=== PATIENT | male | born 1950 | race Caucasian/White ===

== ENCOUNTER 2018-12-17 15:26 | Inpatient (IN) | payer MEDICARE, OTHER ==
[~2018-12-17] VITALS: Ht 162.6 cm; Wt 64.9 kg
[~2018-12-17 15:26] MED LIST: AMLO5TAB10 PO; ASPI-630 PO; ATOR40TA PO; CARV12.5 PO; CITA20TA9 PO; DONE5TAB56 PO; FENO160T PO; HYDR-2761 PO; INSU100I13 SQ; INSU100I17 SQ; PROP80CA3 PO; TAMS0.4C97 PO
[2018-12-17] MEDS ORDERED: VANCOMYCIN PER PHARMACY MC PRN (15:45)
[2018-12-17] MEDS ORDERED: MORPHINE SULFATE 10 MG/ML VIAL. IV ONE (15:45)
[2018-12-17] MEDS ORDERED: VANCOMYCIN 1.5 GM in IV NORMAL SALINE 500ML BAG 500 ML IV ONE (16:00)
[2018-12-17 16:16] LABS: BASO % 1 % (0-3); EOS # 0.3 x10^3/uL (0.0-0.7); EOS % 5 % (0-3); HEMATOCRIT 29.2 % (39.0-53.0); HEMOGLOBIN 9.4 g/dL (13.0-17.5); LYMPH # 0.9 x10^3/uL (1.0-4.8); LYMPH % 15 % (24-48); MEAN CORPUSCULAR HEMOGLOBIN 28 pg (25-35); MEAN CORPUSCULAR HGB CONC 32 g/dL (31-37); MEAN CORPUSCULAR VOLUME 87 fL (79-100); MONO # 0.4 x10^3/uL (0.0-1.1); MONO % 8 % (0-9); NEUT # 4.3 x10^3uL (1.8-7.7); NEUT % 73 % (31-73); PLATELET COUNT 128 x10^3/uL (140-400); RED BLOOD COUNT 3.35 x10^6/uL (4.30-5.70); RED CELL DISTRIBUTION WIDTH 16.4 % (11.5-14.5); WHITE BLOOD COUNT 5.9 x10^3/uL (4.0-11.0)
[2018-12-17 16:21] LABS: CALCIUM 8.7 mg/dL (8.5-10.1); CREATININE 1.6 mg/dL (0.7-1.3); GFR 42.9; POTASSIUM 5.3 mmol/L (3.5-5.1)
[2018-12-17 16:27] LABS: TOTAL BILIRUBIN 0.2 mg/dL (0.2-1.0)
[2018-12-17] MEDS ORDERED: SODIUM POLYSTYRENE SULFONATE 15 GM/60 ML ORAL.SUSP. PO ONE (16:45)
[2018-12-17] MEDS ORDERED: IV NORMAL SALINE 1000ML BAG 1,000 ML IV ONE ×2 (16:45→17:15)
--- NOTE | 2018-12-17 17:05 | PHYS DOC ---
Past Medical History Past Medical History: CAD, COPD, Diabetes-Type II, GERD, Hypertension, Other Additional Past Medical Histor: ALZHEIMER, PARKINSON, CARPAL TUNNEL, OSTERMYLITIS, KIDNEY DISEASE, HIATAL Past Surgical History: Cholecystectomy, Coronary Bypass Surgery, Other Additional Past Surgical Histo: (L) AKA, BACK TUMOR, CARPAL TUNNEL RELEASE Alcohol Use: None Drug Use: None Adult General Chief Complaint Chief Complaint: CELLULITIS HPI HPI Patient is a 68 year old male who presents with cellulitis to his right lower extremity. He states that it has been worsening over the past 2 weeks. He resides at a half-way currently and states that physical therapy is the one that noticed it. He was seen by his physician at the [facility] today who sent him to the emergency department. He does have a for past history of a left leg amputation. He does have a history of congestive heart failure and renal insufficiency. He is diabetic. He has not taken any antibiotic therapy for this cellulitis. Review of Systems Review of Systems Constitutional: Denies fever or chills [] Respiratory: Denies cough or shortness of breath [] Cardiovascular: No additional information not addressed in HPI [] Musculoskeletal: Denies back pain or joint pain [] Integument: See history of present illness Neurologic: Denies headache, focal weakness or sensory changes [] Endocrine: Denies polyuria or polydipsia [] All other systems were reviewed and found to be within normal limits, except as documented in this note. Current Medications Current Medications Current Medications Medications (Trade) Dose Ordered Sig/Katya Start Time Stop Time Status Last Admin Dose Admin Morphine Sulfate (Morphine Sulfate) 5 mg 1X ONCE 12/17/18 15:45 12/17/18 15:46 DC 12/17/18 16:02 5 MG Sodium Polystyrene Sulfonate (Kayexalate) 15 gm 1X ONCE 12/17/18 16:45 12/17/18 16:46 DC 12/17/18 16:45 15 GM Sodium Chloride 1,000 ml @ 1,000 mls/hr 1X ONCE 12/17/18 16:45 12/17/18 17:44 12/17/18 16:50 1,000 MLS/HR Vancomycin HCl (Vanco Per Pharmacy) 1 each PRN DAILY PRN 12/17/18 15:45 UNV Vancomycin HCl 1.5 gm/Sodium Chloride 500 ml @ 250 mls/hr 1X ONCE 12/17/18 16:00 12/17/18 17:59 12/17/18 16:07 250 MLS/HR Allergies Allergies Allergies Coded Allergies Type Severity Reaction Last Updated Verified atropine Allergy Intermediate 01/09/15 Yes hyoscyamine Allergy Intermediate 01/09/15 Yes lidocaine Allergy Intermediate 01/09/15 No phenobarbital Allergy Intermediate 03/29/14 No scopolamine Allergy Intermediate Unknown 01/09/15 No Physical Exam Physical Exam Constitutional: Well developed, well nourished, no acute distress, non-toxic appearance. [] Cardiovascular:Heart rate regular rhythm, no murmur [] Lungs & Thorax: Bilateral breath sounds clear to auscultation [] Abdomen: Bowel sounds normal, soft, no tenderness, no masses, no pulsatile masses. [] Skin: The patient has a 14 cm x 9 cm area of cellulitis with some blistering and weeping noted to his right anterior lower extremity, no purulent drainage noted Back: No tenderness, no CVA tenderness. [] Neurologic: Alert and oriented X 3, normal motor function, normal sensory function, no focal deficits noted. [] Psychologic: Affect normal, judgement normal, mood normal. [] Current Patient Data Vital Signs Vital Signs Date Time Temp Pulse Resp B/P (MAP) Pulse Ox O2 Delivery O2 Flow Rate FiO2 12/17/18 15:39 98.6 79 16 173/79 (110) 98 Room Air 98.6 Lab Values Laboratory Tests Test 12/17/18 15:50 White Blood Count 5.9 x10^3/uL (4.0-11.0) Red Blood Count 3.35 x10^6/uL (4.30-5.70) L Hemoglobin 9.4 g/dL (13.0-17.5) L Hematocrit 29.2 % (39.0-53.0) L Mean Corpuscular Volume 87 fL (79-100) Mean Corpuscular Hemoglobin 28 pg (25-35) Mean Corpuscular Hemoglobin Concent 32 g/dL (31-37) Red Cell Distribution Width 16.4 % (11.5-14.5) H Platelet Count 128 x10^3/uL (140-400) L Neutrophils (%) (Auto) 73 % (31-73) Lymphocytes (%) (Auto) 15 % (24-48) L Monocytes (%) (Auto) 8 % (0-9) Eosinophils (%) (Auto) 5 % (0-3) H Basophils (%) (Auto) 1 % (0-3) Neutrophils # (Auto) 4.3 x10^3uL (1.8-7.7) Lymphocytes # (Auto) 0.9 x10^3/uL (1.0-4.8) L Monocytes # (Auto) 0.4 x10^3/uL (0.0-1.1) Eosinophils # (Auto) 0.3 x10^3/uL (0.0-0.7) Basophils # (Auto) 0.0 x10^3/uL (0.0-0.2) Sodium Level 145 mmol/L (136-145) Potassium Level 5.3 mmol/L (3.5-5.1) H Chloride Level 107 mmol/L (98-107) Carbon Dioxide Level 24 mmol/L (21-32) Anion Gap 14 (6-14) Blood Urea Nitrogen 26 mg/dL (8-26) Creatinine 1.6 mg/dL (0.7-1.3) H Estimated GFR (Cockcroft-Gault) 42.9 BUN/Creatinine Ratio 16 (6-20) Glucose Level 344 mg/dL (70-99) H Lactic Acid Level 5.1 mmol/L (0.4-2.0) *H Calcium Level 8.7 mg/dL (8.5-10.1) Total Bilirubin 0.2 mg/dL (0.2-1.0) Aspartate Amino Transferase (AST) 16 U/L (15-37) Alanine Aminotransferase (ALT) 11 U/L (16-63) L Alkaline Phosphatase 98 U/L (46-116) UK-Wce-A-Type Natriuretic Peptide 593 pg/mL (0-124) H Total Protein 6.0 g/dL (6.4-8.2) L Albumin 3.0 g/dL (3.4-5.0) L Albumin/Globulin Ratio 1.0 (1.0-1.7) Laboratory Tests 12/17/18 15:50 Laboratory Tests 12/17/18 15:50 EKG EKG [] Radiology/Procedures Radiology/Procedures [] Course & Med Decision Making Course & Med Decision Making Pertinent Labs and Imaging studies reviewed. (See chart for details) []The patient's lactic acid is elevated at 5.1. He is receiving a fluid bolus in the emergency department. His potassium is elevated at 5.3. He is received Kayexalate. His EKG did not show peaked T waves. He is beginning Ancef to treat his cellulitis. He is being admitted to Dr. Ramirez's service. He is in agreement with this plan. He received morphine in the emergency department as well to control his pain. Dragon Disclaimer Dragon Disclaimer This electronic medical record was generated, in whole or in part, using a voice recognition dictation system. Departure Departure Impression: Primary Impression: Cellulitis Additional Impressions: Hyperkalemia Diabetes Disposition: ADMITTED INPATIENT Admitting Physician: Jo-Ann Ramirez Condition: GOOD Referrals: ISAK RICE MD (PCP) Problem Qualifiers LESLEY WOODWARD APRN Dec 17, 2018 17:05
[2018-12-17] MEDS ORDERED: ACETAMINOPHEN 325 MG TABLET. PO PRN (17:15)
[2018-12-17] MEDS ORDERED: DEXTROSE 50% 25 GM / 50ML DISP.SYRIN. IV PRN ×2 (17:15→17:45)
[2018-12-17] MEDS ORDERED: ONDANSETRON PF 4 MG/2 ML VIAL. IV PRN (17:15)
[2018-12-17] MEDS ORDERED: INSULIN REGULAR 100 UNIT/ML 3ML VIAL. IV ONE (17:15)
[2018-12-17] MEDS ORDERED: fentaNYL PF VIAL 100 MCG/2 ML VIAL IV PRN (17:15)
--- NOTE | 2018-12-17 17:31 | RAD ---
Examination: TIBIA FIBULA RIGHT History: CELLULITIS Comparison/Correlation: None Findings: Frontal and lateral views of the right tibia and fibula were obtained. No fracture or bony destruction. Vascular calcifications noted. Extensive nonspecific punctate calcifications throughout the soft tissues evident. Impression: No acute process. Electronically signed by: Piter Jovel MD (12/17/2018 5:28 PM) [facility]
--- NOTE | 2018-12-17 17:40 | PDOC1 ---
History and Physical Date of Admission Date of Admission DATE: 12/17/18 TIME: 17:36 Source Source: Chart review, Patient History of Present Illness History of Present Illness Mr Chapman is a 68 year old male admti in ER with cellulitis to his right lower extremity. he complains of pain and redness for more than a few days, maybe a week. He reports that PT noticed it- [facility], and he saw a midlevel provider today who sent him to the ER> . He does have a for past history of a left leg amputation 50 year ago. Past Medical History Cardiovascular: CAD, HTN Pulmonary: COPD CENTRAL NERVOUS SYSTEM: Dementia, Other Heme/Onc: Other Endocrine: Diabetes Past Surgical History Past Surgical History: Cholecystectomy, CABG (25 years ago), Other, No pertinent history (left femur amputation 50 years ago) Family History Family History: Diabetes, Heart Disease Social History Smoke: No ALCOHOL: none Drugs: None Current Problem List Problem List Problems Medical Problems: (1) Cellulitis Status: Acute (2) Diabetes Status: Acute (3) Hyperkalemia Status: Acute Current Medications Current Medications Current Medications Morphine Sulfate (Morphine Sulfate) 5 mg 1X ONCE IV Last administered on at 16:02; Start 12/17/18 at 15:45; Stop 12/17/18 at 15:46; Status DC Vancomycin HCl (Vanco Per Pharmacy) 1 each PRN DAILY PRN MC SEE COMMENTS; Start 12/17/18 at 15:45; Status UNV Vancomycin HCl 1.5 gm/Sodium Chloride 500 ml @ 250 mls/hr 1X ONCE IV Last administered on 12/17/18at 16:07; Start 12/17/18 at 16:00; Stop 12/17/18 at 17:59 Sodium Polystyrene Sulfonate (Kayexalate) 15 gm 1X ONCE PO Last administered on 12/17/18at 16:45; Start 12/17/18 at 16:45; Stop 12/17/18 at 16:46; Status DC Sodium Chloride 1,000 ml @ 1,000 mls/hr 1X ONCE IV Last administered on at 16:50; Start 12/17/18 at 16:45; Stop 12/17/18 at 17:44 Ondansetron HCl (Zofran) 4 mg PRN Q8HRS PRN IV NAUSEA/VOMITING; Start 12/17/18 at 17:15; Stop 12/18/18 at 17:14 Fentanyl Citrate (Fentanyl 2ml Vial) 50 mcg PRN Q1HR PRN IV PAIN; Start at 17:15; Stop 12/18/18 at 17:14 Sodium Chloride 1,000 ml @ 100 mls/hr Q10H IV ; Start 12/17/18 at 17:05; Stop 12/18/18 at 17:04 Acetaminophen (Tylenol) 650 mg PRN Q4HRS PRN PO FEVER; Start 12/17/18 at 17:15 ; Stop 12/18/18 at 17:14 Insulin Human Lispro (HumaLOG) 0-5 UNITS TIDWMEALS SQ ; Start 12/18/18 at 08:00 Dextrose (Dextrose 50%-Water Syringe) 12.5 gm PRN Q15MIN PRN IV SEE COMMENTS; Start 12/17/18 at 17:15 Insulin Human Regular (HumuLIN R VIAL) 10 unit 1X ONCE IV ; Start 12/17/18 at 17:15; Stop 12/17/18 at 17:16; Status DC Sodium Chloride 1,000 ml @ 1,000 mls/hr 1X ONCE IV ; Start 12/17/18 at 17:15; Stop 12/17/18 at 18:14 Active Scripts Active Reported Hydrocodone-Apap 5-325 (Hydrocodone Bit/Acetaminophen) 1 Each Tablet 1 Tab PO PRN Q6HRS PRN Amlodipine Besylate 5 Mg Tablet 5 Mg PO BID Propranolol Hcl 80 Mg Cap.sa.24h 80 Mg PO DAILY Aricept (Donepezil Hcl) 5 Mg Tablet 5 Mg PO BID Aspirin 81 Mg Tab.chew 81 Mg PO BID Lipitor (Atorvastatin Calcium) 40 Mg Tablet 40 Mg PO HS Coreg (Carvedilol) 12.5 Mg Tablet 12.5 Mg PO DAILY Novolog Flexpen (Insulin Aspart) 100 Unit/1 Ml Insuln.pen 100 Unit SQ Lantus Solostar (Insulin Glargine,Hum.rec.anlog) 100 Unit/1 Ml Insuln.pen 20 Unit SQ HS Flomax (Tamsulosin Hcl) 0.4 Mg Cap.er.24h 0.4 Mg PO DAILY Celexa (Citalopram Hydrobromide) 20 Mg Tablet 20 Mg PO DAILY Fenofibrate 160 Mg Tablet 160 Mg PO DAILY Allergies Allergies: Coded Allergies: atropine (Verified Allergy, Intermediate, 01/09/15) passed out hyoscyamine (Verified Allergy, Intermediate, 01/09/15) passed out lidocaine (Unverified Allergy, Intermediate, 01/09/15) passed out phenobarbital (Unverified Allergy, Intermediate, 03/29/14) scopolamine (Unverified Allergy, Intermediate, Unknown, 01/09/15) ROS General: YES: Chills, Fatigue, Malaise PSYCHOLOGICAL ROS: No: Anxiety, Behavioral Disorder, Concentration difficultie , Decreased libido, Depression, Disorientation, Hallucinations, Hostility, Irritablity, Memory difficulties, Mood Swings, Obsessive thoughts, Physical abuse, Sexual abuse, Sleep disturbances, Suicidal ideation, Other Eyes: No Blurry vision, No Decreased vision, No Double vision, No Dry eyes, No Excessive tearing, No Eye Pain, No Itchy Eyes, No Loss of vision, No Photophobia , No Scotomata, No Uses contacts, No Uses glasses, No Other Respiratory: No: Cough, Hemoptysis, Orthopnea, Pleuritic Pain, Shortness of breath, SOB with excertion, Sputum Changes, Stridor, Tachypnea, Wheezing, Other Cardiovascular: No Chest Pain, No Palpitations, No Orthopnea, No Paroxysmal Noc. Dyspnea, No Edema, No Lt Headedness, No Other Gastrointestinal: Yes Nausea Genitourinary: No Dysuria, No Frequency, No Incontinence, No Hematuria, No Retention, No Discharge, No Urgency, No Pain, No Flank Pain, No Other, No , No , No , No , No , No , No Musculoskeletal: Yes Joint Pain Neurological: No Behavorial Changes, No Bowel/Bladder ControlChng, No Confusion , No Dizziness, No Gait Disturbance, No Headaches, No Impaired Coord/balance, No Memory Loss, No Numbness/Tingling, No Seizures, No Speech Problems, No Tremors, No Visual Changes, No Weakness, No Other Skin: Yes Dry Skin, Yes Rash, Yes Skin Lesion Changes, Yes Other Physical Exam General: Alert, Oriented X3, Cooperative, mild distress HEENT: Atraumatic, PERRLA Lungs: Clear to auscultation Heart: no gallops, no murmurs Abdomen: Normal bowel sounds, Soft Rectal Exam: not examined Extremities: No clubbing, No edema Skin: Other (marked red beefy rash with 2 small bullae to right rosales) Neuro: Normal speech, Normal tone, Cranial nerves 3-12 NL Vitals Vitals Vital Signs Date Time Temp Pulse Resp B/P (MAP) Pulse Ox O2 Delivery O2 Flow Rate FiO2 12/17/18 15:39 98.6 79 16 173/79 (110) 98 Room Air 98.6 Labs Labs Laboratory Tests Test 12/17/18 15:50 White Blood Count 5.9 x10^3/uL (4.0-11.0) Red Blood Count 3.35 x10^6/uL (4.30-5.70) Hemoglobin 9.4 g/dL (13.0-17.5) Hematocrit 29.2 % (39.0-53.0) Mean Corpuscular Volume 87 fL (79-100) Mean Corpuscular Hemoglobin 28 pg (25-35) Mean Corpuscular Hemoglobin Concent 32 g/dL (31-37) Red Cell Distribution Width 16.4 % (11.5-14.5) Platelet Count 128 x10^3/uL (140-400) Neutrophils (%) (Auto) 73 % (31-73) Lymphocytes (%) (Auto) 15 % (24-48) Monocytes (%) (Auto) 8 % (0-9) Eosinophils (%) (Auto) 5 % (0-3) Basophils (%) (Auto) 1 % (0-3) Neutrophils # (Auto) 4.3 x10^3uL (1.8-7.7) Lymphocytes # (Auto) 0.9 x10^3/uL (1.0-4.8) Monocytes # (Auto) 0.4 x10^3/uL (0.0-1.1) Eosinophils # (Auto) 0.3 x10^3/uL (0.0-0.7) Basophils # (Auto) 0.0 x10^3/uL (0.0-0.2) Sodium Level 145 mmol/L (136-145) Potassium Level 5.3 mmol/L (3.5-5.1) Chloride Level 107 mmol/L (98-107) Carbon Dioxide Level 24 mmol/L (21-32) Anion Gap 14 (6-14) Blood Urea Nitrogen 26 mg/dL (8-26) Creatinine 1.6 mg/dL (0.7-1.3) Estimated GFR (Cockcroft-Gault) 42.9 BUN/Creatinine Ratio 16 (6-20) Glucose Level 344 mg/dL (70-99) Lactic Acid Level 5.1 mmol/L (0.4-2.0) Calcium Level 8.7 mg/dL (8.5-10.1) Total Bilirubin 0.2 mg/dL (0.2-1.0) Aspartate Amino Transf (AST/SGOT) 16 U/L (15-37) Alanine Aminotransferase (ALT/SGPT) 11 U/L (16-63) Alkaline Phosphatase 98 U/L (46-116) AC-Cao-S-Type Natriuretic Peptide 593 pg/mL (0-124) Total Protein 6.0 g/dL (6.4-8.2) Albumin 3.0 g/dL (3.4-5.0) Albumin/Globulin Ratio 1.0 (1.0-1.7) Laboratory Tests Test 12/17/18 15:50 White Blood Count 5.9 x10^3/uL (4.0-11.0) Red Blood Count 3.35 x10^6/uL (4.30-5.70) Hemoglobin 9.4 g/dL (13.0-17.5) Hematocrit 29.2 % (39.0-53.0) Mean Corpuscular Volume 87 fL (79-100) Mean Corpuscular Hemoglobin 28 pg (25-35) Mean Corpuscular Hemoglobin Concent 32 g/dL (31-37) Red Cell Distribution Width 16.4 % (11.5-14.5) Platelet Count 128 x10^3/uL (140-400) Neutrophils (%) (Auto) 73 % (31-73) Lymphocytes (%) (Auto) 15 % (24-48) Monocytes (%) (Auto) 8 % (0-9) Eosinophils (%) (Auto) 5 % (0-3) Basophils (%) (Auto) 1 % (0-3) Neutrophils # (Auto) 4.3 x10^3uL (1.8-7.7) Lymphocytes # (Auto) 0.9 x10^3/uL (1.0-4.8) Monocytes # (Auto) 0.4 x10^3/uL (0.0-1.1) Eosinophils # (Auto) 0.3 x10^3/uL (0.0-0.7) Basophils # (Auto) 0.0 x10^3/uL (0.0-0.2) Sodium Level 145 mmol/L (136-145) Potassium Level 5.3 mmol/L (3.5-5.1) Chloride Level 107 mmol/L (98-107) Carbon Dioxide Level 24 mmol/L (21-32) Anion Gap 14 (6-14) Blood Urea Nitrogen 26 mg/dL (8-26) Creatinine 1.6 mg/dL (0.7-1.3) Estimated GFR (Cockcroft-Gault) 42.9 BUN/Creatinine Ratio 16 (6-20) Glucose Level 344 mg/dL (70-99) Lactic Acid Level 5.1 mmol/L (0.4-2.0) Calcium Level 8.7 mg/dL (8.5-10.1) Total Bilirubin 0.2 mg/dL (0.2-1.0) Aspartate Amino Transf (AST/SGOT) 16 U/L (15-37) Alanine Aminotransferase (ALT/SGPT) 11 U/L (16-63) Alkaline Phosphatase 98 U/L (46-116) LS-Jck-Z-Type Natriuretic Peptide 593 pg/mL (0-124) Total Protein 6.0 g/dL (6.4-8.2) Albumin 3.0 g/dL (3.4-5.0) Albumin/Globulin Ratio 1.0 (1.0-1.7) VTE Prophylaxis Ordered VTE Prophylaxis Devices: No VTE Pharmacological Prophylaxi: Yes Assessment/Plan Assessment/Plan sepsis cellulitis hyeprkalemia anemia of CKD 3 weakness and debility early dementia admit DEE STOKES MD Dec 17, 2018 17:40
[2018-12-17] MEDS ORDERED: HYDROcodone/APAP 5/325MG 1 TAB TABLET PO PRN (17:45)
[2018-12-17 19:05] VITALS: BP 149/63
--- NOTE | 2018-12-17 19:15 | NUR ---
Pharmacy Vancomycin Dosing Note S:Consulted to monitor and dose vancomycin started 12/17/18. O:DAMON ANGUIANO is a 68 year old M with Cellulitis . Height: 5 feet, 4 inches Weight: 64.099428 kg [place] Body Weight: 59.20 Adjusted Body Weight: 61.28 Dosing Weight: Actual Other Antibiotics: LABS: Last BUN: 26 Last Creatinine: 1.6 Creatinine Clearance: 36 mL/min Last WBC: 5.9 Last Procalcitonin: Tmax (past 24 hours): 98.8 Microbiology: I/O: Drug Levels: Last level: on at Last dose given 12/17/18 at 1607 Vancomycin Dosing: Loading Dose: 1500 mg x1 Dosing Weight: Actual Target Trough: 10-20 A: Based on weight and est. CrCl: P: 1. Vancomycin 1500mg, followed by Vancomycin 1000 mg IV q24h. 2. Follow up Trough level on 12/19/18 at 1530. 3. Pharmacy will continue to monitor, follow and adjust therapy as needed. Emory Mayberry [facility], 12/17/18 [id number]
[2018-12-17] MEDS: DONEPEZIL HCL 5 MG TABLET. PO SCH (22:26)
[2018-12-17] MEDS: amLODIPine BESYLATE 5 MG TABLET PO SCH (22:26)
[2018-12-17] MEDS: ATORVASTATIN CALCIUM 40 MG TABLET. PO SCH (22:27)
[2018-12-17] MEDS: ASPIRIN CHEWABLE 81 MG TABLET. PO SCH (22:27)
[2018-12-17] MEDS: ENOXAPARIN 40 MG/0.4 ML SYRINGE. SQ SCH (22:27)
[2018-12-17] MEDS: IV NORMAL SALINE 1000ML BAG 1,000 ML IV SCH (22:28)
[2018-12-17] MEDS: INSULIN GLARGINE 300 UNITS/3 ML INSULN.PEN. SQ SCH (22:38)
[2018-12-17 23:10] VITALS: BP 146/55
[2018-12-18 03:10] VITALS: BP 166/68
[2018-12-18 04:43] LABS: BASO % 0 % (0-3); EOS # 0.3 x10^3/uL (0.0-0.7); EOS % 7 % (0-3); HEMATOCRIT 29.4 % (39.0-53.0); HEMOGLOBIN 9.5 g/dL (13.0-17.5); LYMPH # 0.6 x10^3/uL (1.0-4.8); LYMPH % 12 % (24-48); MEAN CORPUSCULAR HEMOGLOBIN 28 pg (25-35); MEAN CORPUSCULAR HGB CONC 32 g/dL (31-37); MEAN CORPUSCULAR VOLUME 87 fL (79-100); MONO # 0.3 x10^3/uL (0.0-1.1); MONO % 7 % (0-9); NEUT # 3.4 x10^3uL (1.8-7.7); NEUT % 74 % (31-73); PLATELET COUNT 106 x10^3/uL (140-400); RED BLOOD COUNT 3.39 x10^6/uL (4.30-5.70); RED CELL DISTRIBUTION WIDTH 16.7 % (11.5-14.5); WHITE BLOOD COUNT 4.7 x10^3/uL (4.0-11.0)
[2018-12-18 05:46] LABS: CALCIUM 8.4 mg/dL (8.5-10.1); CREATININE 1.3 mg/dL (0.7-1.3); GFR 54.6; POTASSIUM 4.5 mmol/L (3.5-5.1)
[2018-12-18 07:00] VITALS: BP 166/60
--- NOTE | 2018-12-18 07:52 | EKG ---
[facility] [address] [place] [address] Test Date: 2018-12-17 Test Time: 16:53:54 Pat Name: DAMON ANGUIANO Department: Room: 652 1 Gender: M Psychology Fellow: : 1950 Requested By: LESLEY WOODWARD Order Number: [id number] Reading MD: Victor Hugo Watt Measurements Intervals [place] Rate: 77 P: 47 VT: 204 QRS: 31 QRSD: 126 T: 29 QT: 396 QTc: 450 Interpretive Statements SINUS RHYTHM NON SPECIFIC INTRAVENTRICULAR BLOCK QRS(T) CONTOUR ABNORMALITY CONSISTENT WITH ANTERIOR INFARCT PROBABLY OLD ABNORMAL ECG Electronically Signed On 12-25-2018 12:53:34 CDT by Victor Hugo Watt
[2018-12-18] MEDS: INSULIN LISPRO 300 UNITS/3 ML INSULN.PEN. SQ SCH ×6 (08:00→17:39)
[2018-12-18] MEDS ORDERED: INSULIN LISPRO 300 UNITS/3 ML INSULN.PEN. SQ SCH (08:00)
[2018-12-18] MEDS: FENOFIBRATE,MICRONIZED 134 MG CAPSULE PO SCH (08:19)
[2018-12-18] MEDS: IV NORMAL SALINE 1000ML BAG 1,000 ML IV SCH ×2 (08:19→13:05)
[2018-12-18] MEDS: TAMSULOSIN 0.4 MG CAP.ER.24H. PO SCH (08:20)
[2018-12-18] MEDS: CITALOPRAM 20 MG TABLET. PO SCH (08:20)
[2018-12-18] MEDS: ASPIRIN CHEWABLE 81 MG TABLET. PO SCH ×2 (08:20→20:16)
[2018-12-18] MEDS: DONEPEZIL HCL 5 MG TABLET. PO SCH ×2 (08:20→20:16)
[2018-12-18] MEDS: CARVEDILOL 12.5 MG TABLET. PO SCH (08:21)
[2018-12-18] MEDS: amLODIPine BESYLATE 5 MG TABLET PO SCH ×2 (08:21→20:16)
--- NOTE | 2018-12-18 09:05 | PDOC ---
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 HYPERNATREMIA, volume depleted admit iv antibiotics ID CONSULT ESR Vitals Vitals Vital Signs Date Time Temp Pulse Resp B/P (MAP) Pulse Ox O2 Delivery O2 Flow Rate FiO2 12/18/18 08:21 63 166/60 12/18/18 07:00 98.2 18 98 Room Air 98.2 Physical Exam General: Alert, Oriented X3, Cooperative, mild distress Heart: Regular rate, Normal S1 Lungs: Clear Abdomen: Normal bowel sounds, Soft Extremities: No clubbing, No edema Skin: Other (marked red beefy rash with 2 small bullae OF right ANTERIOR rosales) Labs LABS History: CELLULITIS Comparison/Correlation: None Findings: Frontal and lateral views of the right tibia and fibula were obtained. No fracture or bony destruction. Vascular calcifications noted. Extensive nonspecific punctate calcifications throughout the soft tissues evident. Impression: No acute process. Electronically signed by: Piter Jovel MD (12/17/2018 5:28 PM) [facility] Laboratory Tests Test 12/17/18 15:50 12/17/18 19:40 12/17/18 20:33 12/18/18 03:20 White Blood Count 5.9 x10^3/uL (4.0-11.0) 4.7 x10^3/uL (4.0-11.0) Red Blood Count 3.35 x10^6/uL (4.30-5.70) 3.39 x10^6/uL (4.30-5.70) Hemoglobin 9.4 g/dL (13.0-17.5) 9.5 g/dL (13.0-17.5) Hematocrit 29.2 % (39.0-53.0) 29.4 % (39.0-53.0) Mean Corpuscular Volume 87 fL (79-100) 87 fL (79-100) Mean Corpuscular Hemoglobin 28 pg (25-35) 28 pg (25-35) Mean Corpuscular Hemoglobin Concent 32 g/dL (31-37) 32 g/dL (31-37) Red Cell Distribution Width 16.4 % (11.5-14.5) 16.7 % (11.5-14.5) Platelet Count 128 x10^3/uL (140-400) 106 x10^3/uL (140-400) Neutrophils (%) (Auto) 73 % (31-73) 74 % (31-73) Lymphocytes (%) (Auto) 15 % (24-48) 12 % (24-48) Monocytes (%) (Auto) 8 % (0-9) 7 % (0-9) Eosinophils (%) (Auto) 5 % (0-3) 7 % (0-3) Basophils (%) (Auto) 1 % (0-3) 0 % (0-3) Neutrophils # (Auto) 4.3 x10^3uL (1.8-7.7) 3.4 x10^3uL (1.8-7.7) Lymphocytes # (Auto) 0.9 x10^3/uL (1.0-4.8) 0.6 x10^3/uL (1.0-4.8) Monocytes # (Auto) 0.4 x10^3/uL (0.0-1.1) 0.3 x10^3/uL (0.0-1.1) Eosinophils # (Auto) 0.3 x10^3/uL (0.0-0.7) 0.3 x10^3/uL (0.0-0.7) Basophils # (Auto) 0.0 x10^3/uL (0.0-0.2) 0.0 x10^3/uL (0.0-0.2) Sodium Level 145 mmol/L (136-145) 149 mmol/L (136-145) Potassium Level 5.3 mmol/L (3.5-5.1) 4.5 mmol/L (3.5-5.1) Chloride Level 107 mmol/L (98-107) 113 mmol/L (98-107) Carbon Dioxide Level 24 mmol/L (21-32) 26 mmol/L (21-32) Anion Gap 14 (6-14) 10 (6-14) Blood Urea Nitrogen 26 mg/dL (8-26) 20 mg/dL (8-26) Creatinine 1.6 mg/dL (0.7-1.3) 1.3 mg/dL (0.7-1.3) Estimated GFR (Cockcroft-Gault) 42.9 54.6 BUN/Creatinine Ratio 16 (6-20) Glucose Level 344 mg/dL (70-99) 144 mg/dL (70-99) Lactic Acid Level 5.1 mmol/L (0.4-2.0) 2.8 mmol/L (0.4-2.0) Calcium Level 8.7 mg/dL (8.5-10.1) 8.4 mg/dL (8.5-10.1) Total Bilirubin 0.2 mg/dL (0.2-1.0) Aspartate Amino Transf (AST/SGOT) 16 U/L (15-37) Alanine Aminotransferase (ALT/SGPT) 11 U/L (16-63) Alkaline Phosphatase 98 U/L (46-116) GI-Pxt-U-Type Natriuretic Peptide 593 pg/mL (0-124) Total Protein 6.0 g/dL (6.4-8.2) Albumin 3.0 g/dL (3.4-5.0) Albumin/Globulin Ratio 1.0 (1.0-1.7) Glucose (Fingerstick) 161 mg/dL (70-99) Test 12/18/18 07:16 Glucose (Fingerstick) 118 mg/dL (70-99) Assessment and Plan Assessmemt and Plan Problems Medical Problems: (1) Cellulitis Status: Acute (2) Diabetes Status: Acute (3) Hyperkalemia Status: Acute Past Medical History Past Medical History: CAD, COPD, Diabetes-Type II, GERD, Hypertension, Other Additional Past Medical Histor: ALZHEIMER, PARKINSON, CARPAL TUNNEL, OSTERMYLITIS, KIDNEY DISEASE, HIATAL Past Surgical History: Cholecystectomy, Coronary Bypass Surgery, Other Additional Past Surgical Histo: (L) AKA, BACK TUMOR, CARPAL TUNNEL RELEASE Alcohol Use: None Drug Use: None Comment Review of Relevant I have reviewed the following items reinaldo (where applicable) has been applied. Labs Laboratory Tests Test 12/17/18 15:50 12/17/18 19:40 12/17/18 20:33 12/18/18 03:20 White Blood Count 5.9 x10^3/uL (4.0-11.0) 4.7 x10^3/uL (4.0-11.0) Red Blood Count 3.35 x10^6/uL (4.30-5.70) 3.39 x10^6/uL (4.30-5.70) Hemoglobin 9.4 g/dL (13.0-17.5) 9.5 g/dL (13.0-17.5) Hematocrit 29.2 % (39.0-53.0) 29.4 % (39.0-53.0) Mean Corpuscular Volume 87 fL (79-100) 87 fL (79-100) Mean Corpuscular Hemoglobin 28 pg (25-35) 28 pg (25-35) Mean Corpuscular Hemoglobin Concent 32 g/dL (31-37) 32 g/dL (31-37) Red Cell Distribution Width 16.4 % (11.5-14.5) 16.7 % (11.5-14.5) Platelet Count 128 x10^3/uL (140-400) 106 x10^3/uL (140-400) Neutrophils (%) (Auto) 73 % (31-73) 74 % (31-73) Lymphocytes (%) (Auto) 15 % (24-48) 12 % (24-48) Monocytes (%) (Auto) 8 % (0-9) 7 % (0-9) Eosinophils (%) (Auto) 5 % (0-3) 7 % (0-3) Basophils (%) (Auto) 1 % (0-3) 0 % (0-3) Neutrophils # (Auto) 4.3 x10^3uL (1.8-7.7) 3.4 x10^3uL (1.8-7.7) Lymphocytes # (Auto) 0.9 x10^3/uL (1.0-4.8) 0.6 x10^3/uL (1.0-4.8) Monocytes # (Auto) 0.4 x10^3/uL (0.0-1.1) 0.3 x10^3/uL (0.0-1.1) Eosinophils # (Auto) 0.3 x10^3/uL (0.0-0.7) 0.3 x10^3/uL (0.0-0.7) Basophils # (Auto) 0.0 x10^3/uL (0.0-0.2) 0.0 x10^3/uL (0.0-0.2) Sodium Level 145 mmol/L (136-145) 149 mmol/L (136-145) Potassium Level 5.3 mmol/L (3.5-5.1) 4.5 mmol/L (3.5-5.1) Chloride Level 107 mmol/L (98-107) 113 mmol/L (98-107) Carbon Dioxide Level 24 mmol/L (21-32) 26 mmol/L (21-32) Anion Gap 14 (6-14) 10 (6-14) Blood Urea Nitrogen 26 mg/dL (8-26) 20 mg/dL (8-26) Creatinine 1.6 mg/dL (0.7-1.3) 1.3 mg/dL (0.7-1.3) Estimated GFR (Cockcroft-Gault) 42.9 54.6 BUN/Creatinine Ratio 16 (6-20) Glucose Level 344 mg/dL (70-99) 144 mg/dL (70-99) Lactic Acid Level 5.1 mmol/L (0.4-2.0) 2.8 mmol/L (0.4-2.0) Calcium Level 8.7 mg/dL (8.5-10.1) 8.4 mg/dL (8.5-10.1) Total Bilirubin 0.2 mg/dL (0.2-1.0) Aspartate Amino Transf (AST/SGOT) 16 U/L (15-37) Alanine Aminotransferase (ALT/SGPT) 11 U/L (16-63) Alkaline Phosphatase 98 U/L (46-116) NL-Rfd-S-Type Natriuretic Peptide 593 pg/mL (0-124) Total Protein 6.0 g/dL (6.4-8.2) Albumin 3.0 g/dL (3.4-5.0) Albumin/Globulin Ratio 1.0 (1.0-1.7) Glucose (Fingerstick) 161 mg/dL (70-99) Test 12/18/18 07:16 Glucose (Fingerstick) 118 mg/dL (70-99) Laboratory Tests Test 12/17/18 15:50 12/17/18 19:40 12/17/18 20:33 12/18/18 03:20 White Blood Count 5.9 x10^3/uL (4.0-11.0) 4.7 x10^3/uL (4.0-11.0) Red Blood Count 3.35 x10^6/uL (4.30-5.70) 3.39 x10^6/uL (4.30-5.70) Hemoglobin 9.4 g/dL (13.0-17.5) 9.5 g/dL (13.0-17.5) Hematocrit 29.2 % (39.0-53.0) 29.4 % (39.0-53.0) Mean Corpuscular Volume 87 fL (79-100) 87 fL (79-100) Mean Corpuscular Hemoglobin 28 pg (25-35) 28 pg (25-35) Mean Corpuscular Hemoglobin Concent 32 g/dL (31-37) 32 g/dL (31-37) Red Cell Distribution Width 16.4 % (11.5-14.5) 16.7 % (11.5-14.5) Platelet Count 128 x10^3/uL (140-400) 106 x10^3/uL (140-400) Neutrophils (%) (Auto) 73 % (31-73) 74 % (31-73) Lymphocytes (%) (Auto) 15 % (24-48) 12 % (24-48) Monocytes (%) (Auto) 8 % (0-9) 7 % (0-9) Eosinophils (%) (Auto) 5 % (0-3) 7 % (0-3) Basophils (%) (Auto) 1 % (0-3) 0 % (0-3) Neutrophils # (Auto) 4.3 x10^3uL (1.8-7.7) 3.4 x10^3uL (1.8-7.7) Lymphocytes # (Auto) 0.9 x10^3/uL (1.0-4.8) 0.6 x10^3/uL (1.0-4.8) Monocytes # (Auto) 0.4 x10^3/uL (0.0-1.1) 0.3 x10^3/uL (0.0-1.1) Eosinophils # (Auto) 0.3 x10^3/uL (0.0-0.7) 0.3 x10^3/uL (0.0-0.7) Basophils # (Auto) 0.0 x10^3/uL (0.0-0.2) 0.0 x10^3/uL (0.0-0.2) Sodium Level 145 mmol/L (136-145) 149 mmol/L (136-145) Potassium Level 5.3 mmol/L (3.5-5.1) 4.5 mmol/L (3.5-5.1) Chloride Level 107 mmol/L (98-107) 113 mmol/L (98-107) Carbon Dioxide Level 24 mmol/L (21-32) 26 mmol/L (21-32) Anion Gap 14 (6-14) 10 (6-14) Blood Urea Nitrogen 26 mg/dL (8-26) 20 mg/dL (8-26) Creatinine 1.6 mg/dL (0.7-1.3) 1.3 mg/dL (0.7-1.3) Estimated GFR (Cockcroft-Gault) 42.9 54.6 BUN/Creatinine Ratio 16 (6-20) Glucose Level 344 mg/dL (70-99) 144 mg/dL (70-99) Lactic Acid Level 5.1 mmol/L (0.4-2.0) 2.8 mmol/L (0.4-2.0) Calcium Level 8.7 mg/dL (8.5-10.1) 8.4 mg/dL (8.5-10.1) Total Bilirubin 0.2 mg/dL (0.2-1.0) Aspartate Amino Transf (AST/SGOT) 16 U/L (15-37) Alanine Aminotransferase (ALT/SGPT) 11 U/L (16-63) Alkaline Phosphatase 98 U/L (46-116) SA-Xca-U-Type Natriuretic Peptide 593 pg/mL (0-124) Total Protein 6.0 g/dL (6.4-8.2) Albumin 3.0 g/dL (3.4-5.0) Albumin/Globulin Ratio 1.0 (1.0-1.7) Glucose (Fingerstick) 161 mg/dL (70-99) Test 12/18/18 07:16 Glucose (Fingerstick) 118 mg/dL (70-99) Medications Current Medications Morphine Sulfate (Morphine Sulfate) 5 mg 1X ONCE IV Last administered on 16:02; Start 12/17/18 at 15:45; Stop 12/17/18 at 15:46; Status DC Vancomycin HCl (Vanco Per Pharmacy) 1 each PRN DAILY PRN MC SEE COMMENTS Last administered on 12/17/18at 19:07; Start 12/17/18 at 15:45 Vancomycin HCl 1.5 gm/Sodium Chloride 500 ml @ 250 mls/hr 1X ONCE IV Last administered on 12/17/18at 16:07; Start 12/17/18 at 16:00; Stop 12/17/18 at 17:59 ; Status DC Sodium Polystyrene Sulfonate (Kayexalate) 15 gm 1X ONCE PO Last administered on 12/17/18at 16:45; Start 12/17/18 at 16:45; Stop 12/17/18 at 16:46; Status DC Sodium Chloride 1,000 ml @ 1,000 mls/hr 1X ONCE IV Last administered on at 16:50; Start 12/17/18 at 16:45; Stop 12/17/18 at 17:44; Status DC Ondansetron HCl (Zofran) 4 mg PRN Q8HRS PRN IV NAUSEA/VOMITING; Start 12/17/18 at 17:15; Stop 12/18/18 at 17:14 Fentanyl Citrate (Fentanyl 2ml Vial) 50 mcg PRN Q1HR PRN IV PAIN; Start at 17:15; Stop 12/18/18 at 17:14 Sodium Chloride 1,000 ml @ 100 mls/hr Q10H IV Last administered on 12/18/18at 08:19; Start 12/17/18 at 17:05; Stop 12/18/18 at 17:04 Acetaminophen (Tylenol) 650 mg PRN Q4HRS PRN PO FEVER; Start 12/17/18 at 17:15 ; Stop 12/18/18 at 17:14 Insulin Human Lispro (HumaLOG) 0-5 UNITS TIDWMEALS SQ ; Start 12/18/18 at 08:00 Dextrose (Dextrose 50%-Water Syringe) 12.5 gm PRN Q15MIN PRN IV SEE COMMENTS; Start 12/17/18 at 17:15 Insulin Human Regular (HumuLIN R VIAL) 10 unit 1X ONCE IV Last administered on 12/17/18at 17:15; Start 12/17/18 at 17:15; Stop 12/17/18 at 17:16; Status DC Sodium Chloride 1,000 ml @ 1,000 mls/hr 1X ONCE IV ; Start 12/17/18 at 17:15; Stop 12/17/18 at 18:14; Status DC Amlodipine Besylate (Norvasc) 5 mg BID PO Last administered on 12/18/18at 08:21 ; Start 12/17/18 at 21:00 Aspirin (Children'S Aspirin) 81 mg BID PO Last administered on 12/18/18 08:20 ; Start 12/17/18 at 21:00 Atorvastatin Calcium (Lipitor) 40 mg HS PO Last administered on 12/17/18at 22:27 ; Start 12/17/18 at 21:00 Carvedilol (Coreg) 12.5 mg DAILY PO Last administered on 12/18/18at 08:21; Start 12/18/18 at 09:00 Citalopram Hydrobromide (CeleXA) 20 mg DAILY PO Last administered on 12/18/18at 08:20; Start 12/18/18 at 09:00 Acetaminophen/ Hydrocodone Bitart (Lortab 5/325) 1 tab PRN Q6HRS PRN PO MODERATE PAIN; Start 12/17/18 at 17:45 Insulin Glargine (Lantus) 20 units HS SQ Last administered on 12/17/18at 22:38; Start 12/17/18 at 21:00 Tamsulosin HCl (Flomax) 0.4 mg DAILY PO Last administered on 12/18/18at 08:20; Start 12/18/18 at 09:00 Donepezil HCl (Aricept) 5 mg BID PO Last administered on 12/18/18at 08:20; Start 12/17/18 at 21:00 Fenofibrate (Lofibra) 134 mg DAILY PO Last administered on 12/18/18at 08:19; Start 12/18/18 at 09:00 Insulin Human Lispro (HumaLOG) 0-7 UNITS TIDWMEALS SQ ; Start 12/18/18 at 08:00 Dextrose (Dextrose 50%-Water Syringe) 12.5 gm PRN Q15MIN PRN IV SEE COMMENTS; Start 12/17/18 at 17:45 Insulin Human Lispro (HumaLOG) 10 units TIDWMEALS SQ Last administered on at 08:33; Start 12/18/18 at 08:00 Enoxaparin Sodium (Lovenox Per Pharmacy Prophylaxis Dosing) 1 each PRN DAILY PRN MC SEE COMMENTS; Start 12/17/18 at 17:45 Enoxaparin Sodium (Lovenox 40mg Syringe) 40 mg Q24H SQ Last administered on at 22:27; Start 12/17/18 at 19:00 Vancomycin HCl 1 gm/Sodium Chloride 250 ml @ 250 mls/hr Q24H IV ; Start at 16:00 Vancomycin HCl (Vancomycin Trough Level) 1 each 1X ONCE MC ; Start 12/19/18 at 15:30; Stop 12/19/18 at 15:31 Active Scripts Active Reported Hydrocodone-Apap 5-325 (Hydrocodone Bit/Acetaminophen) 1 Each Tablet 1 Tab PO PRN Q6HRS PRN Amlodipine Besylate 5 Mg Tablet 5 Mg PO BID Propranolol Hcl 80 Mg Cap.sa.24h 80 Mg PO DAILY Aricept (Donepezil Hcl) 5 Mg Tablet 5 Mg PO BID Aspirin 81 Mg Tab.chew 81 Mg PO BID Lipitor (Atorvastatin Calcium) 40 Mg Tablet 40 Mg PO HS Coreg (Carvedilol) 12.5 Mg Tablet 12.5 Mg PO DAILY Novolog Flexpen (Insulin Aspart) 100 Unit/1 Ml Insuln.pen 100 Unit SQ Lantus Solostar (Insulin Glargine,Hum.rec.anlog) 100 Unit/1 Ml Insuln.pen 20 Unit SQ HS Flomax (Tamsulosin Hcl) 0.4 Mg Cap.er.24h 0.4 Mg PO DAILY Celexa (Citalopram Hydrobromide) 20 Mg Tablet 20 Mg PO DAILY Fenofibrate 160 Mg Tablet 160 Mg PO DAILY Vitals/I & O Vital Sign - Last 24 Hours 12/17/18 12/17/18 12/17/18 12/17/18 15:39 16:30 17:30 19:05 Temp 98.6 98.0 98.6 98.0 Pulse 79 74 73 92 Resp 16 B/P (MAP) 173/79 (110) 153/82 (105) 142/78 (99) 149/63 (91) Pulse Ox 98 99 99 97 O2 Delivery Room Air Room Air Room Air Room Air 12/17/18 12/17/18 12/18/18 12/18/18 22:26 23:10 03:10 07:00 Temp 99.2 98.3 98.2 99.2 98.3 98.2 Pulse 92 77 69 63 Resp B/P (MAP) 149/63 146/55 (85) 166/68 (100) 166/60 (95) Pulse Ox 95 98 98 O2 Delivery Room Air Room Air Room Air 12/18/18 12/18/18 08:21 08:21 Pulse 63 63 B/P (MAP) 166/60 166/60 Intake and Output 12/17/18 12/17/18 12/18/18 15:00 23:00 07:00 Intake Total 1150 ml 100 ml Output Total 1000 ml Balance 1150 ml -900 ml ART ROBERTS MD Dec 18, 2018 09:05
--- NOTE | 2018-12-18 09:39 | NUR ---
Wound care; Patient seen per wound care consult. See wound assessment. Patient has intact blisters and cellulitis to right lower extremity. Area cleansed and assessed. Recommendations for skin prep to intact blisters and to moisturize with lotion daily. Skin prep and lotion applied. No other wounds noted upon complete head to toe assessment. Patient repositioned in bed. Dressing change instructions left in room. Will follow up with patient next week. Call light in reach and bed lowered.
[2018-12-18] MEDS: IV 1/2 NORMAL SALINE 1,000 ML IV SCH ×2 (10:40→21:07)
[2018-12-18 11:00] VITALS: BP 176/66
--- NOTE | 2018-12-18 11:55 | PDOC ---
Provider Note Provider Note Pt seen and examined ID consult dictated [id number] MYCHAL TAO MD Dec 18, 2018 11:55
[2018-12-18] MEDS: LINEZOLID 600 MG TABLET PO SCH ×2 (13:15→20:16)
[2018-12-18] MEDS: MICAFUNGIN 100 MG in IV DEXTROSE 5% 100ML 100 ML IV SCH (13:16)
--- NOTE | 2018-12-18 14:12 | NUR ---
NS 1 liter not administered, new order for 1/2 NS started.
[2018-12-18] MEDS: ceFAZolin SODIUM 1 GM in IV DEXTROSE 5% 50 ML IV SCH ×2 (14:48→21:06)
--- NOTE | 2018-12-18 15:05 | NUR ---
SW following pt for anticipated dc needs. Chart reviewed and MEME RN. WANDA confirmed with Harish at [facility] re[facility], phone: [phone], fax: [phone], pt is LTC resident/plan of return upon dc. Will continue to follow.
[2018-12-18 15:15] VITALS: BP 155/40
[2018-12-18] MEDS ORDERED: VANCOMYCIN 1 GM in IV NORMAL SALINE 250ML 250 ML IV SCH (16:00)
[2018-12-18 19:31] VITALS: BP 126/57
[2018-12-18] MEDS: LACTOBACILLUS RHAMNOSUS GG 1 CAPSULE. PO SCH (20:15)
[2018-12-18] MEDS: ENOXAPARIN 40 MG/0.4 ML SYRINGE. SQ SCH (20:17)
[2018-12-18] MEDS: ATORVASTATIN CALCIUM 40 MG TABLET. PO SCH (20:17)
[2018-12-18] MEDS: INSULIN GLARGINE 300 UNITS/3 ML INSULN.PEN. SQ SCH (20:25)
[2018-12-18 23:15] VITALS: BP 190/65
[2018-12-19 01:11] LABS: HEMOGLOBIN A1C 9.6 % (4.8-5.6)
--- NOTE | 2018-12-19 01:57 | CONS ---
DATE OF CONSULTATION: 12/18/2018 REFERRING PHYSICIAN: Dr. Guidry. REASON FOR CONSULTATION: Antibiotic management for right lower extremity cellulitis. HISTORY OF PRESENT ILLNESS: A 68-year-old male with history of diabetes mellitus type 2, left AKA, coronary artery disease, CKD, COPD, GERD, hypertension, Alzheimer's, Parkinson's, kidney disease, retirement resident, presented to the ER on 12/17/2018 after he was found to have redness over the right lower extremity that was found by his physical therapist. He was seen by his primary care physician at [facility] who sent him to the ED on 12/17/2018, patient has had a history of left leg amputation. The patient also has history of CHF, renal insufficiency, diabetes. He was not taking any antibiotics prior to presentation to [facility] ED. The patient denied any fevers or chills. Does have pain over the lower extremity. Denies any history of trauma. Denies any cough, shortness of breath, nausea, vomiting, diarrhea, abdominal pain. Denies any thigh pain. The patient is not a good historian, somewhat limited information. History also obtained from the chart review. PAST MEDICAL HISTORY: Coronary artery disease, COPD, type 2 diabetes, GERD, hypertension, Alzheimer's, Parkinson's, carpal tunnel syndrome, history of osteomyelitis, kidney disease, hiatal hernia, cholecystectomy, coronary artery bypass grafting, left AKA, back tumor, carpal tunnel release. SOCIAL HISTORY: Denies smoking, ETOH or illicit drug use. alf resident. ALLERGIES: ATROPINE, HYOSCYAMINE, LIDOCAINE, PHENOBARBITAL, SCOPOLAMINE. PHYSICAL EXAMINATION: VITAL SIGNS: Temperature 98, pulse 92, respiratory rate 19, blood pressure 143/63, oxygen saturation 97% on room air. GENERAL: Well-developed, well-nourished male lying in bed comfortably, in no acute distress, comfortable. HEENT: Normocephalic, atraumatic, anicteric. No thrush. Oral mucosa moist. NECK: Supple. No JVD. LUNGS: Clear bilaterally. No wheezing. HEART: S1, S2 with no gallops or murmurs. ABDOMEN: Soft, obese. Bowel sounds present. Nontender, nondistended. EXTREMITIES: Left AKA, hemipelvectomy, right lower extremity, diabetic lipidic changes present, chronic venous stasis changes present. There are few blisters present with weeping lesion of the right anterior lower extremity, slight warmth. No purulent drainage. NEUROLOGIC: Alert and oriented x 3. Grossly nonfocal. PSYCHIATRIC: Cooperative, appropriate mood and affect. LABORATORY DATA: WBC 4.7, hemoglobin 9.5, hematocrit 29.4, platelets 106. Sodium 149, potassium 4.5, chloride 113, bicarbonate 26, creatinine 1.3, BUN 20, glucose 144, lactate 2.8, calcium 8.9. LFTs within normal limits. BNP 593. Lactate was 5.1. Micro, next blood culture pending. IMAGING: Right tibia fibula, no acute process. IMPRESSION: 1. Sepsis, source right lower extremity cellulitis. 2. Right lower extremity cellulitis with underlying chronic venous stasis. 3. Diabetes mellitus. 4. Left hemipelvectomy from before. 5. Chronic kidney disease. 6. Thrombocytopenia. 7. Diabetes mellitus. 8. Tinea. 9. Early dementia. 10. Normocytic anemia. 11. Hyponatremia. RECOMMENDATIONS: 1. Discontinue IV vancomycin. 2. Start the patient on empiric Zyvox. 3. Start cefazolin. 4. Start micafungin would like to avoid fluconazole due to multiple drug-drug interactions. 5. Elevate right lower extremity. 6. Continue local care. 7. Follow up labs in a.m. and cultures. 8. Continue supportive care. Thank you, Dr. Guidry for consulting Infectious Disease to participate in this patient's care. If you have any questions, do not hesitate to contact me. MYCHAL TAO MD DR: MELINDA/karen JOB#: [id number] / [id number]
[2018-12-19 03:26] VITALS: BP 177/68
[2018-12-19] MEDS ORDERED: hydrALAZINE 20 MG/ML VIAL. IVP PRN (04:30)
[2018-12-19] MEDS: MORPHINE SULFATE 2 MG/ML VIAL. IV PRN ×3 (05:38→18:24)
[2018-12-19] MEDS: ceFAZolin SODIUM 1 GM in IV DEXTROSE 5% 50 ML IV SCH ×3 (05:39→22:15)
[2018-12-19 07:10] VITALS: BP 189/63
[2018-12-19] MEDS: amLODIPine BESYLATE 5 MG TABLET PO SCH ×2 (08:24→22:14)
[2018-12-19] MEDS: FENOFIBRATE,MICRONIZED 134 MG CAPSULE PO SCH (08:24)
[2018-12-19] MEDS: DONEPEZIL HCL 5 MG TABLET. PO SCH ×2 (08:24→22:14)
[2018-12-19] MEDS: LINEZOLID 600 MG TABLET PO SCH ×2 (08:25→22:13)
[2018-12-19] MEDS: TAMSULOSIN 0.4 MG CAP.ER.24H. PO SCH (08:25)
[2018-12-19] MEDS: CITALOPRAM 20 MG TABLET. PO SCH (08:25)
[2018-12-19] MEDS: LACTOBACILLUS RHAMNOSUS GG 1 CAPSULE. PO SCH ×2 (08:25→22:12)
[2018-12-19] MEDS: ASPIRIN CHEWABLE 81 MG TABLET. PO SCH ×2 (08:25→22:13)
[2018-12-19] MEDS: CARVEDILOL 12.5 MG TABLET. PO SCH (08:26)
[2018-12-19] MEDS: INSULIN LISPRO 300 UNITS/3 ML INSULN.PEN. SQ SCH ×6 (08:34→17:00)
--- NOTE | 2018-12-19 10:50 | PDOC ---
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 HYPERNATREMIA, volume depleted Zyvox/ cefazolin/micafungin admit iv antibiotics ID CONSULT ESR Vitals Vitals Vital Signs Date Time Temp Pulse Resp B/P (MAP) Pulse Ox O2 Delivery O2 Flow Rate FiO2 12/19/18 08:26 59 189/63 12/19/18 08:00 Room Air 12/19/18 07:10 97.6 18 98 97.6 Physical Exam General: Alert, Oriented X3, Cooperative, mild distress Heart: Regular rate, Normal S1 Lungs: Clear Abdomen: Normal bowel sounds, Soft Extremities: No clubbing, No edema Skin: Other (marked red beefy rash with 2 small bullae OF right ANTERIOR rosales) Labs LABS Laboratory Tests Test 12/18/18 11:19 12/18/18 13:30 12/18/18 16:44 12/18/18 20:19 Glucose (Fingerstick) 195 mg/dL (70-99) 286 mg/dL (70-99) 358 mg/dL (70-99) Erythrocyte Sedimentation Rate 55 (0-15) Test 12/19/18 07:13 Glucose (Fingerstick) 241 mg/dL (70-99) Assessment and Plan Assessmemt and Plan Problems Medical Problems: (1) Cellulitis Status: Acute (2) Diabetes Status: Acute (3) Hyperkalemia Status: Acute Comment Review of Relevant I have reviewed the following items reinaldo (where applicable) has been applied. Labs Laboratory Tests Test 12/17/18 15:50 12/17/18 19:40 12/17/18 20:33 12/18/18 03:20 White Blood Count 5.9 x10^3/uL (4.0-11.0) 4.7 x10^3/uL (4.0-11.0) Red Blood Count 3.35 x10^6/uL (4.30-5.70) 3.39 x10^6/uL (4.30-5.70) Hemoglobin 9.4 g/dL (13.0-17.5) 9.5 g/dL (13.0-17.5) Hematocrit 29.2 % (39.0-53.0) 29.4 % (39.0-53.0) Mean Corpuscular Volume 87 fL (79-100) 87 fL (79-100) Mean Corpuscular Hemoglobin 28 pg (25-35) 28 pg (25-35) Mean Corpuscular Hemoglobin Concent 32 g/dL (31-37) 32 g/dL (31-37) Red Cell Distribution Width 16.4 % (11.5-14.5) 16.7 % (11.5-14.5) Platelet Count 128 x10^3/uL (140-400) 106 x10^3/uL (140-400) Neutrophils (%) (Auto) 73 % (31-73) 74 % (31-73) Lymphocytes (%) (Auto) 15 % (24-48) 12 % (24-48) Monocytes (%) (Auto) 8 % (0-9) 7 % (0-9) Eosinophils (%) (Auto) 5 % (0-3) 7 % (0-3) Basophils (%) (Auto) 1 % (0-3) 0 % (0-3) Neutrophils # (Auto) 4.3 x10^3uL (1.8-7.7) 3.4 x10^3uL (1.8-7.7) Lymphocytes # (Auto) 0.9 x10^3/uL (1.0-4.8) 0.6 x10^3/uL (1.0-4.8) Monocytes # (Auto) 0.4 x10^3/uL (0.0-1.1) 0.3 x10^3/uL (0.0-1.1) Eosinophils # (Auto) 0.3 x10^3/uL (0.0-0.7) 0.3 x10^3/uL (0.0-0.7) Basophils # (Auto) 0.0 x10^3/uL (0.0-0.2) 0.0 x10^3/uL (0.0-0.2) Sodium Level 145 mmol/L (136-145) 149 mmol/L (136-145) Potassium Level 5.3 mmol/L (3.5-5.1) 4.5 mmol/L (3.5-5.1) Chloride Level 107 mmol/L (98-107) 113 mmol/L (98-107) Carbon Dioxide Level 24 mmol/L (21-32) 26 mmol/L (21-32) Anion Gap 14 (6-14) 10 (6-14) Blood Urea Nitrogen 26 mg/dL (8-26) 20 mg/dL (8-26) Creatinine 1.6 mg/dL (0.7-1.3) 1.3 mg/dL (0.7-1.3) Estimated GFR (Cockcroft-Gault) 42.9 54.6 BUN/Creatinine Ratio 16 (6-20) Glucose Level 344 mg/dL (70-99) 144 mg/dL (70-99) Lactic Acid Level 5.1 mmol/L (0.4-2.0) 2.8 mmol/L (0.4-2.0) Calcium Level 8.7 mg/dL (8.5-10.1) 8.4 mg/dL (8.5-10.1) Total Bilirubin 0.2 mg/dL (0.2-1.0) Aspartate Amino Transf (AST/SGOT) 16 U/L (15-37) Alanine Aminotransferase (ALT/SGPT) 11 U/L (16-63) Alkaline Phosphatase 98 U/L (46-116) ZY-Ncx-A-Type Natriuretic Peptide 593 pg/mL (0-124) Total Protein 6.0 g/dL (6.4-8.2) Albumin 3.0 g/dL (3.4-5.0) Albumin/Globulin Ratio 1.0 (1.0-1.7) Glucose (Fingerstick) 161 mg/dL (70-99) Hemoglobin A1c 9.6 % (4.8-5.6) Test 12/18/18 07:16 12/18/18 11:19 12/18/18 13:30 12/18/18 16:44 Glucose (Fingerstick) 118 mg/dL (70-99) 195 mg/dL (70-99) 286 mg/dL (70-99) Erythrocyte Sedimentation Rate 55 (0-15) Test 12/18/18 20:19 12/19/18 07:13 Glucose (Fingerstick) 358 mg/dL (70-99) 241 mg/dL (70-99) Laboratory Tests Test 12/18/18 11:19 12/18/18 13:30 12/18/18 16:44 12/18/18 20:19 Glucose (Fingerstick) 195 mg/dL (70-99) 286 mg/dL (70-99) 358 mg/dL (70-99) Erythrocyte Sedimentation Rate 55 (0-15) Test 12/19/18 07:13 Glucose (Fingerstick) 241 mg/dL (70-99) Microbiology 12/17/18 Blood Culture - Preliminary, Resulted NO GROWTH AFTER 1 DAY Medications Current Medications Morphine Sulfate (Morphine Sulfate) 5 mg 1X ONCE IV Last administered on at 16:02; Start 12/17/18 at 15:45; Stop 12/17/18 at 15:46; Status DC Vancomycin HCl (Vanco Per Pharmacy) 1 each PRN DAILY PRN MC SEE COMMENTS Last administered on 12/17/18at 19:07; Start 12/17/18 at 15:45; Stop 12/18/18 at 11:47 ; Status DC Vancomycin HCl 1.5 gm/Sodium Chloride 500 ml @ 250 mls/hr 1X ONCE IV Last administered on 12/17/18at 16:07; Start 12/17/18 at 16:00; Stop 12/17/18 at 17:59 ; Status DC Sodium Polystyrene Sulfonate (Kayexalate) 15 gm 1X ONCE PO Last administered on 12/17/18at 16:45; Start 12/17/18 at 16:45; Stop 12/17/18 at 16:46; Status DC Sodium Chloride 1,000 ml @ 1,000 mls/hr 1X ONCE IV Last administered on at 16:50; Start 12/17/18 at 16:45; Stop 12/17/18 at 17:44; Status DC Ondansetron HCl (Zofran) 4 mg PRN Q8HRS PRN IV NAUSEA/VOMITING; Start 12/17/18 at 17:15; Stop 12/18/18 at 17:14; Status DC Fentanyl Citrate (Fentanyl 2ml Vial) 50 mcg PRN Q1HR PRN IV PAIN; Start at 17:15; Stop 12/18/18 at 17:14; Status DC Sodium Chloride 1,000 ml @ 100 mls/hr Q10H IV Last administered on 12/18/18at 08:19; Start 12/17/18 at 17:05; Stop 12/18/18 at 16:07; Status DC Acetaminophen (Tylenol) 650 mg PRN Q4HRS PRN PO FEVER; Start 12/17/18 at 17:15 ; Stop 12/18/18 at 17:14; Status DC Insulin Human Lispro (HumaLOG) 0-5 UNITS TIDWMEALS SQ ; Start 12/18/18 at 08:00 ; Stop 12/18/18 at 10:14; Status DC Dextrose (Dextrose 50%-Water Syringe) 12.5 gm PRN Q15MIN PRN IV SEE COMMENTS; Start 12/17/18 at 17:15; Stop 12/18/18 at 10:14; Status DC Insulin Human Regular (HumuLIN R VIAL) 10 unit 1X ONCE IV Last administered on 12/17/18at 17:15; Start 12/17/18 at 17:15; Stop 12/17/18 at 17:16; Status DC Sodium Chloride 1,000 ml @ 1,000 mls/hr 1X ONCE IV ; Start 12/17/18 at 17:15; Stop 12/17/18 at 18:14; Status DC Amlodipine Besylate (Norvasc) 5 mg BID PO Last administered on 12/19/18at 08:24 ; Start 12/17/18 at 21:00 Aspirin (Children'S Aspirin) 81 mg BID PO Last administered on 12/19/18at 08:25 ; Start 12/17/18 at 21:00 Atorvastatin Calcium (Lipitor) 40 mg HS PO Last administered on 12/18/18at 20:17 ; Start 12/17/18 at 21:00 Carvedilol (Coreg) 12.5 mg DAILY PO Last administered on 12/19/18at 08:26; Start 12/18/18 at 09:00 Citalopram Hydrobromide (CeleXA) 20 mg DAILY PO Last administered on 12/19/18 08:25; Start 12/18/18 at 09:00 Acetaminophen/ Hydrocodone Bitart (Lortab 5/325) 1 tab PRN Q6HRS PRN PO MODERATE PAIN; Start 12/17/18 at 17:45 Insulin Glargine (Lantus) 20 units HS SQ Last administered on 12/18/18at 20:25; Start 12/17/18 at 21:00 Tamsulosin HCl (Flomax) 0.4 mg DAILY PO Last administered on 12/19/18 08:25; Start 12/18/18 at 09:00 Donepezil HCl (Aricept) 5 mg BID PO Last administered on 12/19/18 08:24; Start 12/17/18 at 21:00 Fenofibrate (Lofibra) 134 mg DAILY PO Last administered on 12/19/18 08:24; Start 12/18/18 at 09:00 Insulin Human Lispro (HumaLOG) 0-7 UNITS TIDWMEALS SQ Last administered on 12/19at 08:35; Start 12/18/18 at 08:00 Dextrose (Dextrose 50%-Water Syringe) 12.5 gm PRN Q15MIN PRN IV SEE COMMENTS; Start 12/17/18 at 17:45 Insulin Human Lispro (HumaLOG) 10 units TIDWMEALS SQ Last administered on at 08:34; Start 12/18/18 at 08:00 Enoxaparin Sodium (Lovenox Per Pharmacy Prophylaxis Dosing) 1 each PRN DAILY PRN MC SEE COMMENTS; Start 12/17/18 at 17:45 Enoxaparin Sodium (Lovenox 40mg Syringe) 40 mg Q24H SQ Last administered on at 20:17; Start 12/17/18 at 19:00 Vancomycin HCl 1 gm/Sodium Chloride 250 ml @ 250 mls/hr Q24H IV ; Start at 16:00; Stop 12/18/18 at 16:00; Status DC Vancomycin HCl (Vancomycin Trough Level) 1 each 1X ONCE MC ; Start 12/19/18 at 15:30; Stop 12/19/18 at 15:30; Status DC Sodium Chloride 1,000 ml @ 75 mls/hr [id number] IV Last administered on at 21:07; Start 12/18/18 at 10:15 Lactobacillus Rhamnosus (Culturelle) 1 cap BID PO Last administered on at 08:25; Start 12/18/18 at 21:00 Cefazolin Sodium 1 gm/Dextrose 50 ml @ 100 mls/hr Q8HRS IV Last administered on 12/19/18at 05:39; Start 12/18/18 at 14:00 Linezolid (Zyvox) 600 mg BID PO Last administered on 12/19/18at 08:25; Start at 12:30 Micafungin Sodium 100 mg/Dextrose 100 ml @ 100 mls/hr Q24H IV Last administered on 12/18/18at 13:16; Start 12/18/18 at 13:00 Morphine Sulfate (Morphine Sulfate) 2 mg PRN Q6HRS PRN IV SEVERE PAIN Last administered on 12/19/18at 05:38; Start 12/19/18 at 04:30 Hydralazine HCl (Apresoline Inj) 10 mg PRN Q6HRS PRN IVP ELEVATED BP, SEE COMMENTS; Start 12/19/18 at 04:30 Active Scripts Active Reported Hydrocodone-Apap 5-325 (Hydrocodone Bit/Acetaminophen) 1 Each Tablet 1 Tab PO PRN Q6HRS PRN Amlodipine Besylate 5 Mg Tablet 5 Mg PO BID Propranolol Hcl 80 Mg Cap.sa.24h 80 Mg PO DAILY Aricept (Donepezil Hcl) 5 Mg Tablet 5 Mg PO BID Aspirin 81 Mg Tab.chew 81 Mg PO BID Lipitor (Atorvastatin Calcium) 40 Mg Tablet 40 Mg PO HS Coreg (Carvedilol) 12.5 Mg Tablet 12.5 Mg PO DAILY Novolog Flexpen (Insulin Aspart) 100 Unit/1 Ml Insuln.pen 100 Unit SQ Lantus Solostar (Insulin Glargine,Hum.rec.anlog) 100 Unit/1 Ml Insuln.pen 20 Unit SQ HS Flomax (Tamsulosin Hcl) 0.4 Mg Cap.er.24h 0.4 Mg PO DAILY Celexa (Citalopram Hydrobromide) 20 Mg Tablet 20 Mg PO DAILY Fenofibrate 160 Mg Tablet 160 Mg PO DAILY Vitals/I & O Vital Sign - Last 24 Hours 12/18/18 12/18/18 12/18/18 12/18/18 11:00 15:15 19:31 20:05 Temp 98.6 98.8 98.8 98.6 98.8 98.8 Pulse 68 68 70 Resp 20 20 20 B/P (MAP) 176/66 (102) 155/40 (78) 126/57 (80) Pulse Ox 98 97 94 O2 Delivery Room Air Room Air Room Air Room Air 12/18/18 12/18/18 12/19/18 12/19/18 20:16 23:15 03:26 07:10 Temp 98.3 97.9 97.6 98.3 97.9 97.6 Pulse 70 67 54 59 Resp 18 18 18 B/P (MAP) 126/57 190/65 (106) 177/68 (104) 189/63 (105) Pulse Ox 95 96 98 O2 Delivery Room Air Room Air Room Air 12/19/18 12/19/18 12/19/18 08:00 08:24 08:26 Pulse 59 59 B/P (MAP) 189/63 189/63 O2 Delivery Room Air Intake and Output 12/18/18 12/18/18 12/19/18 15:00 23:00 07:00 Intake Total 300 ml 100 ml 140 ml Output Total 250 ml Balance 300 ml 100 ml -110 ml ART ROBERTS MD Dec 19, 2018 10:50
[2018-12-19 11:16] VITALS: BP 179/55
--- NOTE | 2018-12-19 11:58 | PDOC ---
Infectious Disease Note Subjective: Subjective pt has pain in the rt leg numbness in the whole leg no f/c/n/v/d/sob Vital Signs: Vital Signs Vital Signs Date Time Temp Pulse Resp B/P (MAP) Pulse Ox O2 Delivery O2 Flow Rate FiO2 12/19/18 11:29 100 Room Air 12/19/18 11:16 97.7 59 18 179/55 (96) 97.7 Physical Exam: PHYSICAL EXAM GENERAL: Well-developed, well-nourished male lying in bed comfortably, in no acute distress, comfortable. HEENT: Normocephalic, atraumatic, anicteric. No thrush. Oral mucosa moist. NECK: Supple. No JVD. LUNGS: Clear bilaterally. No wheezing. HEART: S1, S2 with no gallops or murmurs. ABDOMEN: Soft, obese. Bowel sounds present. Nontender, nondistended. EXTREMITIES: Left AKA, hemipelvectomy, right lower extremity, diabetic lipidic changes present, chronic venous stasis changes present. There are few blisters present with weeping lesion of the right anterior lower extremity, slight warmth. No purulent drainage. NEUROLOGIC: Alert and oriented x 3. Grossly nonfocal. PSYCHIATRIC: Cooperative, appropriate mood and affect. Medications: Inpatient Meds: Current Medications Medications (Trade) Dose Ordered Sig/Katya Start Time Stop Time Status Last Admin Dose Admin Acetaminophen (Tylenol) 650 mg PRN Q4HRS PRN 12/17/18 17:15 12/18/18 17:14 DC Acetaminophen/ Hydrocodone Bitart (Lortab 5/325) 1 tab PRN Q6HRS PRN 12/17/18 17:45 Amlodipine Besylate (Norvasc) 5 mg BID 12/17/18 21:00 12/19/18 08:24 5 MG Aspirin (Children'S Aspirin) 81 mg BID 12/17/18 21:00 12/19/18 08:25 81 MG Atorvastatin Calcium (Lipitor) 40 mg HS 12/17/18 21:00 12/18/18 20:17 40 MG Carvedilol (Coreg) 12.5 mg DAILY 12/18/18 09:00 12/19/18 08:26 12.5 MG Cefazolin Sodium 1 gm/Dextrose 50 ml @ 100 mls/hr Q8HRS 12/18/18 14:00 12/19/18 05:39 100 MLS/HR Citalopram Hydrobromide (CeleXA) 20 mg DAILY 12/18/18 09:00 12/19/18 08:25 20 MG Dextrose (Dextrose 50%-Water Syringe) 12.5 gm PRN Q15MIN PRN 12/17/18 17:45 Donepezil HCl (Aricept) 5 mg BID 12/17/18 21:00 12/19/18 08:24 5 MG Enoxaparin Sodium (Lovenox 40mg Syringe) 40 mg Q24H 12/17/18 19:00 12/18/18 20:17 40 MG Enoxaparin Sodium (Lovenox Per Pharmacy Prophylaxis Dosing) 1 each PRN DAILY PRN 12/17/18 17:45 Fenofibrate (Lofibra) 134 mg DAILY 12/18/18 09:00 12/19/18 08:24 134 MG Fentanyl Citrate (Fentanyl 2ml Vial) 50 mcg PRN Q1HR PRN 12/17/18 17:15 12/18/18 17:14 DC Hydralazine HCl (Apresoline Inj) 10 mg PRN Q6HRS PRN 12/19/18 04:30 Insulin Glargine (Lantus) 20 units HS 12/17/18 21:00 12/18/18 20:25 20 UNITS Insulin Human Lispro (HumaLOG) 10 units TIDWMEALS 12/18/18 08:00 12/19/18 11:36 10 UNITS Insulin Human Regular (HumuLIN R VIAL) 10 unit 1X ONCE 12/17/18 17:15 12/17/18 17:16 DC 12/17/18 17:15 10 UNIT Lactobacillus Rhamnosus (Culturelle) 1 cap BID 12/18/18 21:00 12/19/18 08:25 1 CAP Linezolid (Zyvox) 600 mg BID 12/18/18 12:30 12/19/18 08:25 600 MG Micafungin Sodium 100 mg/Dextrose 100 ml @ 100 mls/hr Q24H 12/18/18 13:00 12/18/18 13:16 100 MLS/HR Morphine Sulfate (Morphine Sulfate) 2 mg PRN Q6HRS PRN 12/19/18 04:30 12/19/18 10:59 2 MG Ondansetron HCl (Zofran) 4 mg PRN Q8HRS PRN 12/17/18 17:15 12/18/18 17:14 DC Sodium Polystyrene Sulfonate (Kayexalate) 15 gm 1X ONCE 12/17/18 16:45 12/17/18 16:46 DC 12/17/18 16:45 15 GM Sodium Chloride 1,000 ml @ 75 mls/hr [id number] 12/18/18 10:15 12/18/18 21:07 75 MLS/HR Tamsulosin HCl (Flomax) 0.4 mg DAILY 12/18/18 09:00 12/19/18 08:25 0.4 MG Vancomycin HCl (Vanco Per Pharmacy) 1 each PRN DAILY PRN 12/17/18 15:45 12/18/18 11:47 DC 12/17/18 19:07 1 EACH Vancomycin HCl (Vancomycin Trough Level) 1 each 1X ONCE 12/19/18 15:30 12/19/18 15:30 DC Vancomycin HCl 1.5 gm/Sodium Chloride 500 ml @ 250 mls/hr 1X ONCE 12/17/18 16:00 12/17/18 17:59 DC 12/17/18 16:07 250 MLS/HR Vancomycin HCl 1 gm/Sodium Chloride 250 ml @ 250 mls/hr Q24H 12/18/18 16:00 12/18/18 16:00 DC Labs: Lab Laboratory Tests Test 12/18/18 13:30 12/18/18 16:44 12/18/18 20:19 12/19/18 07:13 Erythrocyte Sedimentation Rate 55 (0-15) Glucose (Fingerstick) 286 mg/dL (70-99) 358 mg/dL (70-99) 241 mg/dL (70-99) Test 12/19/18 11:08 Glucose (Fingerstick) 202 mg/dL (70-99) Objective: Assessment: 1. Sepsis, source right lower extremity cellulitis. 2. Right lower extremity cellulitis with underlying chronic venous stasis. 3. Diabetes mellitus. 4. Left hemipelvectomy from before. 5. Chronic kidney disease. 6. Thrombocytopenia. 7. Diabetes mellitus. 8. Tinea. 9. Early dementia. 10. Normocytic anemia. 11. Hyponatremia. 12. Rt leg pain and numbness ? neuropathy or PAD Plan: Plan of Care Leathaox/ cefazolin/micafungin Elevate right lower extremity. Continue local care. arterial doppler d/w MYCHAL DAILEY MD Dec 19, 2018 11:58
[2018-12-19] MEDS: MICAFUNGIN 100 MG in IV DEXTROSE 5% 100ML 100 ML IV SCH (12:01)
[2018-12-19 15:00] VITALS: BP 156/55
--- NOTE | 2018-12-19 16:00 | NUR ---
Spoke with Dr. Guidry d/t patient's bradycardia HR of 50. No new orders at this time. Continue to monitor HR.
--- NOTE | 2018-12-19 16:59 | RAD ---
DUPLEX SONOGRAPHY OF THE PERIPHERAL ARTERIAL SYSTEM OF THE RIGHT LOWER EXTREMITY Clinical indications: Peripheral vascular disease. Findings: Duplex sonography of the peripheral arterial system of the right lower extremity including alba scale and color flow and spectral waveform analysis was performed. Biphasic waveforms are seen. Right peroneal artery is not visualized and therefore may be occluded. There is a significant drop in the peak systolic flow velocity measurement between the proximal posterior tibial artery and the distal posterior tibial artery from 138 cm/sec to 30 cm/sec. This may indicate a significant stenosis within this artery. In addition, there is an increase in end-diastolic flow velocity or low-resistance within the distal right posterior tibial artery. The measurements were performed using the NASCET criteria. Peak systolic flow velocities are as follows: Right leg: common femoral artery- 122 cm/sec, profunda femoral artery -114 cm/sec, proximal superficial femoral artery -120 cm/sec, mid superficial femoral artery -111 cm/sec, distal superficial femoral artery- 109 cm/sec, popliteal artery -67 cm/sec, proximal posterior tibial artery- 138 cm/sec, distal posterior tibial artery- 30 cm/sec, peroneal artery-not visualized, anterior tibial artery- 80 cm/sec, dorsalis pedis artery -74 cm/sec. Impression: Occlusion of the right peroneal artery. Possible significant stenosis of the right posterior tibial artery. Electronically signed by: Shawn Pruitt MD (12/19/2018 4:56 PM) [id number]
--- NOTE | 2018-12-19 17:00 | NUR ---
Patient Blood Sugar low at 123 and patient did not eat enough food--held insulin.
[2018-12-19] MEDS: IV 1/2 NORMAL SALINE 1,000 ML IV SCH (18:07)
[2018-12-19] MEDS: ENOXAPARIN 40 MG/0.4 ML SYRINGE. SQ SCH (18:13)
[2018-12-19 19:36] VITALS: BP 184/73
[2018-12-19] MEDS: ATORVASTATIN CALCIUM 40 MG TABLET. PO SCH (22:13)
[2018-12-19] MEDS: INSULIN GLARGINE 300 UNITS/3 ML INSULN.PEN. SQ SCH (22:25)
[2018-12-19 23:14] VITALS: BP 183/76
[2018-12-20] MEDS ORDERED: ZOLPIDEM 5 MG TABLET. PO PRN (00:15)
[2018-12-20] MEDS: IV 1/2 NORMAL SALINE 1,000 ML IV SCH ×4 (02:15→22:22)
[2018-12-20 03:26] VITALS: BP 157/76
[2018-12-20 04:57] LABS: CALCIUM 8.4 mg/dL (8.5-10.1); CREATININE 1.3 mg/dL (0.7-1.3); GFR 54.6; MAGNESIUM 2.1 mg/dL (1.8-2.4); POTASSIUM 4.6 mmol/L (3.5-5.1)
[2018-12-20] MEDS: ceFAZolin SODIUM 1 GM in IV DEXTROSE 5% 50 ML IV SCH ×3 (05:28→22:22)
[2018-12-20 07:00] VITALS: BP 169/65
--- NOTE | 2018-12-20 07:43 | EKG ---
[facility] [address] [place] [id number] Test Date: 2018-12-20 Test Time: 04:03:51 Pat Name: DAMON ANGUIANO Department: Room: 2 1 Gender: M Nurse Charge Rn: MARJORIE : 1950 Requested By: ART ROBERTS Order Number: [id number] Reading MD: Victor Hugo Watt Measurements Intervals [place] Rate: 73 P: [place]: QRS: 107 QRSD: 122 T: -62 QT: 426 QTc: 473 Interpretive Statements SINUS RHYTHM QRS(T) CONTOUR ABNORMALITY CONSISTENT WITH ANTERIOR INFARCT PROBABLY OLD ABNORMAL ECG Electronically Signed On 12-25-2018 13:14:00 CDT by Victor Hugo Watt
[2018-12-20] MEDS: LACTOBACILLUS RHAMNOSUS GG 1 CAPSULE. PO SCH ×2 (08:38→20:47)
[2018-12-20] MEDS: LINEZOLID 600 MG TABLET PO SCH (08:38)
[2018-12-20] MEDS: CITALOPRAM 20 MG TABLET. PO SCH (08:38)
[2018-12-20] MEDS: DONEPEZIL HCL 5 MG TABLET. PO SCH ×2 (08:38→20:47)
[2018-12-20] MEDS: ASPIRIN CHEWABLE 81 MG TABLET. PO SCH ×2 (08:38→20:47)
[2018-12-20] MEDS: TAMSULOSIN 0.4 MG CAP.ER.24H. PO SCH (08:38)
[2018-12-20] MEDS: FENOFIBRATE,MICRONIZED 134 MG CAPSULE PO SCH (08:39)
[2018-12-20] MEDS: CARVEDILOL 12.5 MG TABLET. PO SCH (08:39)
[2018-12-20] MEDS: amLODIPine BESYLATE 5 MG TABLET PO SCH ×2 (08:39→20:47)
[2018-12-20] MEDS: INSULIN LISPRO 300 UNITS/3 ML INSULN.PEN. SQ SCH ×6 (08:45→17:36)
--- NOTE | 2018-12-20 10:20 | PDOC ---
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 HYPERNATREMIA, volume depleted D/C Zyvox/ CONT cefazolin/micafungin admit CONSULT VASCULAR SURGERY ID CONSULT ESR 45 MIN PT EXAM, CHART REVIEW, > 50% of time spent with exam, chart review, pt care coordination Vitals Vitals Vital Signs Date Time Temp Pulse Resp B/P (MAP) Pulse Ox O2 Delivery O2 Flow Rate FiO2 12/20/18 08:39 52 169/65 12/20/18 07:00 98.1 18 97 Room Air 98.1 Physical Exam Physical Exam GENERAL: Well-developed, well-nourished male lying in bed comfortably, in no acute distress, comfortable. HEENT: Normocephalic, atraumatic, anicteric. No thrush. Oral mucosa moist. NECK: Supple. No JVD. LUNGS: Clear bilaterally. No wheezing. HEART: S1, S2 with no gallops or murmurs. ABDOMEN: Soft, obese. Bowel sounds present. Nontender, nondistended. EXTREMITIES: Left AKA, hemipelvectomy, right lower extremity, diabetic lipidic changes present, chronic venous stasis changes present. There are few blisters present with weeping lesion of the right anterior lower extremity, slight warmth. No purulent drainage. NEUROLOGIC: Alert and oriented x 3. Grossly nonfocal. PSYCHIATRIC: Cooperative, appropriate mood and affect. General: Alert, Oriented X3, Cooperative, mild distress Heart: Regular rate, Normal S1 Lungs: Clear Abdomen: Normal bowel sounds, Soft Extremities: No clubbing, No edema Skin: Other (marked red beefy rash with 2 small bullae OF right ANTERIOR rosales) Labs LABS DUPLEX SONOGRAPHY OF THE PERIPHERAL ARTERIAL SYSTEM OF THE RIGHT LOWER EXTREMITY Clinical indications: Peripheral vascular disease. Findings: Duplex sonography of the peripheral arterial system of the right lower extremity including alba scale and color flow and spectral waveform analysis was performed. Biphasic waveforms are seen. Right peroneal artery is not visualized and therefore may be occluded. There is a significant drop in the peak systolic flow velocity measurement between the proximal posterior tibial artery and the distal posterior tibial artery from 138 cm/sec to 30 cm/sec. This may indicate a significant stenosis within this artery. In addition, there is an increase in end-diastolic flow velocity or low-resistance within the distal right posterior tibial artery. The measurements were performed using the NASCET criteria. Peak systolic flow velocities are as follows: Right leg: common femoral artery- 122 cm/sec, profunda femoral artery -114 cm/sec, proximal superficial femoral artery -120 cm/sec, mid superficial femoral artery -111 cm/sec, distal superficial femoral artery- 109 cm/sec, popliteal artery -67 cm/sec, proximal posterior tibial artery- 138 cm/sec, distal posterior tibial artery- 30 cm/sec, peroneal artery-not visualized, anterior tibial artery- 80 cm/sec, dorsalis pedis artery -74 cm/sec. Impression: Occlusion of the right peroneal artery. Possible significant stenosis of the right posterior tibial artery. Electronically signed by: Eileen Pruitt MD (12/19/2018 4:56 PM) [facility] DICTATED and SIGNED BY: EILEEN PRUITT MD DATE: 12/19/18 1656 Laboratory Tests Test 12/19/18 11:08 12/19/18 16:59 12/19/18 20:20 12/20/18 04:30 Glucose (Fingerstick) 202 mg/dL (70-99) 123 mg/dL (70-99) 190 mg/dL (70-99) Sodium Level 141 mmol/L (136-145) Potassium Level 4.6 mmol/L (3.5-5.1) Chloride Level 107 mmol/L (98-107) Carbon Dioxide Level 24 mmol/L (21-32) Anion Gap 10 (6-14) Blood Urea Nitrogen 17 mg/dL (8-26) Creatinine 1.3 mg/dL (0.7-1.3) Estimated GFR (Cockcroft-Gault) 54.6 Glucose Level 212 mg/dL (70-99) Calcium Level 8.4 mg/dL (8.5-10.1) Magnesium Level 2.1 mg/dL (1.8-2.4) Troponin I Quantitative 0.017 ng/mL (0.000-0.055) Test 12/20/18 07:37 Glucose (Fingerstick) 199 mg/dL (70-99) Assessment and Plan Assessmemt and Plan Problems Medical Problems: (1) Cellulitis Status: Acute (2) Diabetes Status: Acute (3) Hyperkalemia Status: Acute Comment Review of Relevant I have reviewed the following items reinaldo (where applicable) has been applied. Labs Laboratory Tests Test 12/18/18 11:19 12/18/18 13:30 12/18/18 16:44 12/18/18 20:19 Glucose (Fingerstick) 195 mg/dL (70-99) 286 mg/dL (70-99) 358 mg/dL (70-99) Erythrocyte Sedimentation Rate 55 (0-15) Test 12/19/18 07:13 12/19/18 11:08 12/19/18 16:59 12/19/18 20:20 Glucose (Fingerstick) 241 mg/dL (70-99) 202 mg/dL (70-99) 123 mg/dL (70-99) 190 mg/dL (70-99) Test 12/20/18 04:30 12/20/18 07:37 Sodium Level 141 mmol/L (136-145) Potassium Level 4.6 mmol/L (3.5-5.1) Chloride Level 107 mmol/L (98-107) Carbon Dioxide Level 24 mmol/L (21-32) Anion Gap 10 (6-14) Blood Urea Nitrogen 17 mg/dL (8-26) Creatinine 1.3 mg/dL (0.7-1.3) Estimated GFR (Cockcroft-Gault) 54.6 Glucose Level 212 mg/dL (70-99) Calcium Level 8.4 mg/dL (8.5-10.1) Magnesium Level 2.1 mg/dL (1.8-2.4) Troponin I Quantitative 0.017 ng/mL (0.000-0.055) Glucose (Fingerstick) 199 mg/dL (70-99) Laboratory Tests Test 12/19/18 11:08 12/19/18 16:59 12/19/18 20:20 12/20/18 04:30 Glucose (Fingerstick) 202 mg/dL (70-99) 123 mg/dL (70-99) 190 mg/dL (70-99) Sodium Level 141 mmol/L (136-145) Potassium Level 4.6 mmol/L (3.5-5.1) Chloride Level 107 mmol/L (98-107) Carbon Dioxide Level 24 mmol/L (21-32) Anion Gap 10 (6-14) Blood Urea Nitrogen 17 mg/dL (8-26) Creatinine 1.3 mg/dL (0.7-1.3) Estimated GFR (Cockcroft-Gault) 54.6 Glucose Level 212 mg/dL (70-99) Calcium Level 8.4 mg/dL (8.5-10.1) Magnesium Level 2.1 mg/dL (1.8-2.4) Troponin I Quantitative 0.017 ng/mL (0.000-0.055) Test 12/20/18 07:37 Glucose (Fingerstick) 199 mg/dL (70-99) Microbiology 12/17/18 Blood Culture - Preliminary, Resulted NO GROWTH AFTER 2 DAYS Medications Current Medications Morphine Sulfate (Morphine Sulfate) 5 mg 1X ONCE IV Last administered on at 16:02; Start 12/17/18 at 15:45; Stop 12/17/18 at 15:46; Status DC Vancomycin HCl (Vanco Per Pharmacy) 1 each PRN DAILY PRN MC SEE COMMENTS Last administered on 12/17/18at 19:07; Start 12/17/18 at 15:45; Stop 12/18/18 at 11:47 ; Status DC Vancomycin HCl 1.5 gm/Sodium Chloride 500 ml @ 250 mls/hr 1X ONCE IV Last administered on 12/17/18at 16:07; Start 12/17/18 at 16:00; Stop 12/17/18 at 17:59 ; Status DC Sodium Polystyrene Sulfonate (Kayexalate) 15 gm 1X ONCE PO Last administered on 12/17/18at 16:45; Start 12/17/18 at 16:45; Stop 12/17/18 at 16:46; Status DC Sodium Chloride 1,000 ml @ 1,000 mls/hr 1X ONCE IV Last administered on at 16:50; Start 12/17/18 at 16:45; Stop 12/17/18 at 17:44; Status DC Ondansetron HCl (Zofran) 4 mg PRN Q8HRS PRN IV NAUSEA/VOMITING; Start 12/17/18 at 17:15; Stop 12/18/18 at 17:14; Status DC Fentanyl Citrate (Fentanyl 2ml Vial) 50 mcg PRN Q1HR PRN IV PAIN; Start at 17:15; Stop 12/18/18 at 17:14; Status DC Sodium Chloride 1,000 ml @ 100 mls/hr Q10H IV Last administered on 12/18/18at 08:19; Start 12/17/18 at 17:05; Stop 12/18/18 at 16:07; Status DC Acetaminophen (Tylenol) 650 mg PRN Q4HRS PRN PO FEVER; Start 12/17/18 at 17:15 ; Stop 12/18/18 at 17:14; Status DC Insulin Human Lispro (HumaLOG) 0-5 UNITS TIDWMEALS SQ ; Start 12/18/18 at 08:00 ; Stop 12/18/18 at 10:14; Status DC Dextrose (Dextrose 50%-Water Syringe) 12.5 gm PRN Q15MIN PRN IV SEE COMMENTS; Start 12/17/18 at 17:15; Stop 12/18/18 at 10:14; Status DC Insulin Human Regular (HumuLIN R VIAL) 10 unit 1X ONCE IV Last administered on 12/17/18at 17:15; Start 12/17/18 at 17:15; Stop 12/17/18 at 17:16; Status DC Sodium Chloride 1,000 ml @ 1,000 mls/hr 1X ONCE IV ; Start 12/17/18 at 17:15; Stop 12/17/18 at 18:14; Status DC Amlodipine Besylate (Norvasc) 5 mg BID PO Last administered on 12/20/18at 08:39 ; Start 12/17/18 at 21:00 Aspirin (Children'S Aspirin) 81 mg BID PO Last administered on 12/20/18at 08:38 ; Start 12/17/18 at 21:00 Atorvastatin Calcium (Lipitor) 40 mg HS PO Last administered on 12/19/18at 22:13 ; Start 12/17/18 at 21:00 Carvedilol (Coreg) 12.5 mg DAILY PO Last administered on 12/20/18 08:39; Start 12/18/18 at 09:00 Citalopram Hydrobromide (CeleXA) 20 mg DAILY PO Last administered on 12/20/18at 08:38; Start 12/18/18 at 09:00 Acetaminophen/ Hydrocodone Bitart (Lortab 5/325) 1 tab PRN Q6HRS PRN PO MODERATE PAIN; Start 12/17/18 at 17:45 Insulin Glargine (Lantus) 20 units HS SQ Last administered on 12/19/18 22:25; Start 12/17/18 at 21:00 Tamsulosin HCl (Flomax) 0.4 mg DAILY PO Last administered on 12/20/18at 08:38; Start 12/18/18 at 09:00 Donepezil HCl (Aricept) 5 mg BID PO Last administered on 12/20/18 08:38; Start 12/17/18 at 21:00 Fenofibrate (Lofibra) 134 mg DAILY PO Last administered on 12/20/18 08:39; Start 12/18/18 at 09:00 Insulin Human Lispro (HumaLOG) 0-7 UNITS TIDWMEALS SQ Last administered on 12/20at 08:45; Start 12/18/18 at 08:00 Dextrose (Dextrose 50%-Water Syringe) 12.5 gm PRN Q15MIN PRN IV SEE COMMENTS; Start 12/17/18 at 17:45 Insulin Human Lispro (HumaLOG) 10 units TIDWMEALS SQ Last administered on at 08:47; Start 12/18/18 at 08:00 Enoxaparin Sodium (Lovenox Per Pharmacy Prophylaxis Dosing) 1 each PRN DAILY PRN MC SEE COMMENTS; Start 12/17/18 at 17:45 Enoxaparin Sodium (Lovenox 40mg Syringe) 40 mg Q24H SQ Last administered on at 18:13; Start 12/17/18 at 19:00 Vancomycin HCl 1 gm/Sodium Chloride 250 ml @ 250 mls/hr Q24H IV ; Start at 16:00; Stop 12/18/18 at 16:00; Status DC Vancomycin HCl (Vancomycin Trough Level) 1 each 1X ONCE MC ; Start 12/19/18 at 15:30; Stop 12/19/18 at 15:30; Status DC Sodium Chloride 1,000 ml @ 75 mls/hr [id number] IV Last administered on at 05:31; Start 12/18/18 at 10:15 Lactobacillus Rhamnosus (Culturelle) 1 cap BID PO Last administered on at 08:38; Start 12/18/18 at 21:00 Cefazolin Sodium 1 gm/Dextrose 50 ml @ 100 mls/hr Q8HRS IV Last administered on 12/20/18 05:28; Start 12/18/18 at 14:00 Linezolid (Zyvox) 600 mg BID PO Last administered on 12/20/18at 08:38; Start at 12:30 Micafungin Sodium 100 mg/Dextrose 100 ml @ 100 mls/hr Q24H IV Last administered on 12/19/18at 12:01; Start 12/18/18 at 13:00 Morphine Sulfate (Morphine Sulfate) 2 mg PRN Q6HRS PRN IV SEVERE PAIN Last administered on 12/19/18at 18:24; Start 12/19/18 at 04:30 Hydralazine HCl (Apresoline Inj) 10 mg PRN Q6HRS PRN IVP ELEVATED BP, SEE COMMENTS Last administered on 12/20/18at 00:15; Start 12/19/18 at 04:30 Zolpidem Tartrate (Ambien) 5 mg PRN QHS PRN PO INSOMNIA Last administered on at 00:13; Start 12/20/18 at 00:15 Active Scripts Active Reported Hydrocodone-Apap 5-325 (Hydrocodone Bit/Acetaminophen) 1 Each Tablet 1 Tab PO PRN Q6HRS PRN Amlodipine Besylate 5 Mg Tablet 5 Mg PO BID Propranolol Hcl 80 Mg Cap.sa.24h 80 Mg PO DAILY Aricept (Donepezil Hcl) 5 Mg Tablet 5 Mg PO BID Aspirin 81 Mg Tab.chew 81 Mg PO BID Lipitor (Atorvastatin Calcium) 40 Mg Tablet 40 Mg PO HS Coreg (Carvedilol) 12.5 Mg Tablet 12.5 Mg PO DAILY Novolog Flexpen (Insulin Aspart) 100 Unit/1 Ml Insuln.pen 100 Unit SQ Lantus Solostar (Insulin Glargine,Hum.rec.anlog) 100 Unit/1 Ml Insuln.pen 20 Unit SQ HS Flomax (Tamsulosin Hcl) 0.4 Mg Cap.er.24h 0.4 Mg PO DAILY Celexa (Citalopram Hydrobromide) 20 Mg Tablet 20 Mg PO DAILY Fenofibrate 160 Mg Tablet 160 Mg PO DAILY Vitals/I & O Vital Sign - Last 24 Hours 12/19/18 12/19/18 12/19/18 12/19/18 10:59 11:16 11:29 15:00 Temp 97.7 97.9 97.7 97.9 Pulse 59 54 Resp 18 18 B/P (MAP) 179/55 (96) 156/55 (88) Pulse Ox 98 100 100 97 O2 Delivery Room Air Room Air Room Air Room Air 12/19/18 12/19/18 12/19/18 12/19/18 18:24 19:36 20:10 22:14 Temp 98.1 98.1 Pulse 70 Resp 18 B/P (MAP) 184/73 (110) 184/73 Pulse Ox 97 96 O2 Delivery Room Air Room Air Room Air 12/19/18 12/20/18 12/20/18 12/20/18 23:14 00:15 03:26 07:00 Temp 98.2 98.0 98.1 98.2 98.0 98.1 Pulse 75 75 64 52 Resp 18 16 18 B/P (MAP) 183/76 (111) 183/76 157/76 (103) 169/65 (99) Pulse Ox 97 94 97 O2 Delivery Room Air Room Air Room Air 12/20/18 12/20/18 08:39 08:39 Pulse 52 52 B/P (MAP) 169/65 169/65 Intake and Output 12/19/18 12/19/18 12/20/18 14:59 22:59 06:59 Intake Total 300 ml 200 ml 330 ml Output Total 375 ml Balance -75 ml 200 ml 330 ml ART ROBERTS MD Dec 20, 2018 10:20
--- NOTE | 2018-12-20 10:21 | PDOC ---
Infectious Disease Note Subjective: Subjective pt has pain in the rt leg no f/c/n/v/d/sob Vital Signs: Vital Signs Vital Signs Date Time Temp Pulse Resp B/P (MAP) Pulse Ox O2 Delivery O2 Flow Rate FiO2 12/20/18 08:39 52 169/65 12/20/18 07:00 98.1 18 97 Room Air 98.1 Physical Exam: PHYSICAL EXAM GENERAL: Well-developed, well-nourished male lying in bed comfortably, in no acute distress, comfortable. HEENT: Normocephalic, atraumatic, anicteric. No thrush. Oral mucosa moist. NECK: Supple. No JVD. LUNGS: Clear bilaterally. No wheezing. HEART: S1, S2 with no gallops or murmurs. ABDOMEN: Soft, obese. Bowel sounds present. Nontender, nondistended. EXTREMITIES: Left AKA, hemipelvectomy, right lower extremity, diabetic lipidic changes present, chronic venous stasis changes present. There are few blisters present with weeping lesion of the right anterior lower extremity, slight warmth. No purulent drainage. NEUROLOGIC: Alert and oriented x 3. Grossly nonfocal. PSYCHIATRIC: Cooperative, appropriate mood and affect. Medications: Inpatient Meds: Current Medications Medications (Trade) Dose Ordered Sig/Katya Start Time Stop Time Status Last Admin Dose Admin Acetaminophen (Tylenol) 650 mg PRN Q4HRS PRN 12/17/18 17:15 12/18/18 17:14 DC Acetaminophen/ Hydrocodone Bitart (Lortab 5/325) 1 tab PRN Q6HRS PRN 12/17/18 17:45 Amlodipine Besylate (Norvasc) 5 mg BID 12/17/18 21:00 12/20/18 08:39 5 MG Aspirin (Children'S Aspirin) 81 mg BID 12/17/18 21:00 12/20/18 08:38 81 MG Atorvastatin Calcium (Lipitor) 40 mg HS 12/17/18 21:00 12/19/18 22:13 40 MG Carvedilol (Coreg) 12.5 mg DAILY 12/18/18 09:00 12/20/18 08:39 12.5 MG Cefazolin Sodium 1 gm/Dextrose 50 ml @ 100 mls/hr Q8HRS 12/18/18 14:00 12/20/18 05:28 100 MLS/HR Citalopram Hydrobromide (CeleXA) 20 mg DAILY 12/18/18 09:00 12/20/18 08:38 20 MG Dextrose (Dextrose 50%-Water Syringe) 12.5 gm PRN Q15MIN PRN 12/17/18 17:45 Donepezil HCl (Aricept) 5 mg BID 12/17/18 21:00 12/20/18 08:38 5 MG Enoxaparin Sodium (Lovenox 40mg Syringe) 40 mg Q24H 12/17/18 19:00 12/19/18 18:13 40 MG Enoxaparin Sodium (Lovenox Per Pharmacy Prophylaxis Dosing) 1 each PRN DAILY PRN 12/17/18 17:45 Fenofibrate (Lofibra) 134 mg DAILY 12/18/18 09:00 12/20/18 08:39 134 MG Fentanyl Citrate (Fentanyl 2ml Vial) 50 mcg PRN Q1HR PRN 12/17/18 17:15 12/18/18 17:14 DC Hydralazine HCl (Apresoline Inj) 10 mg PRN Q6HRS PRN 12/19/18 04:30 12/20/18 00:15 10 MG Insulin Glargine (Lantus) 20 units HS 12/17/18 21:00 12/19/18 22:25 20 UNITS Insulin Human Lispro (HumaLOG) 10 units TIDWMEALS 12/18/18 08:00 12/20/18 08:47 10 UNITS Insulin Human Regular (HumuLIN R VIAL) 10 unit 1X ONCE 12/17/18 17:15 12/17/18 17:16 DC 12/17/18 17:15 10 UNIT Lactobacillus Rhamnosus (Culturelle) 1 cap BID 12/18/18 21:00 12/20/18 08:38 1 CAP Linezolid (Zyvox) 600 mg BID 12/18/18 12:30 12/20/18 08:38 600 MG Micafungin Sodium 100 mg/Dextrose 100 ml @ 100 mls/hr Q24H 12/18/18 13:00 12/19/18 12:01 100 MLS/HR Morphine Sulfate (Morphine Sulfate) 2 mg PRN Q6HRS PRN 12/19/18 04:30 12/19/18 18:24 2 MG Ondansetron HCl (Zofran) 4 mg PRN Q8HRS PRN 12/17/18 17:15 12/18/18 17:14 DC Sodium Polystyrene Sulfonate (Kayexalate) 15 gm 1X ONCE 12/17/18 16:45 12/17/18 16:46 DC 12/17/18 16:45 15 GM Sodium Chloride 1,000 ml @ 75 mls/hr [id number] 12/18/18 10:15 12/20/18 05:31 75 MLS/HR Tamsulosin HCl (Flomax) 0.4 mg DAILY 12/18/18 09:00 12/20/18 08:38 0.4 MG Vancomycin HCl (Vanco Per Pharmacy) 1 each PRN DAILY PRN 12/17/18 15:45 12/18/18 11:47 DC 12/17/18 19:07 1 EACH Vancomycin HCl (Vancomycin Trough Level) 1 each 1X ONCE 12/19/18 15:30 12/19/18 15:30 DC Vancomycin HCl 1.5 gm/Sodium Chloride 500 ml @ 250 mls/hr 1X ONCE 12/17/18 16:00 12/17/18 17:59 DC 12/17/18 16:07 250 MLS/HR Vancomycin HCl 1 gm/Sodium Chloride 250 ml @ 250 mls/hr Q24H 12/18/18 16:00 12/18/18 16:00 DC Zolpidem Tartrate (Ambien) 5 mg PRN QHS PRN 12/20/18 00:15 12/20/18 00:13 5 MG Labs: Lab Laboratory Tests Test 12/19/18 11:08 12/19/18 16:59 12/19/18 20:20 12/20/18 04:30 Glucose (Fingerstick) 202 mg/dL (70-99) 123 mg/dL (70-99) 190 mg/dL (70-99) Sodium Level 141 mmol/L (136-145) Potassium Level 4.6 mmol/L (3.5-5.1) Chloride Level 107 mmol/L (98-107) Carbon Dioxide Level 24 mmol/L (21-32) Anion Gap 10 (6-14) Blood Urea Nitrogen 17 mg/dL (8-26) Creatinine 1.3 mg/dL (0.7-1.3) Estimated GFR (Cockcroft-Gault) 54.6 Glucose Level 212 mg/dL (70-99) Calcium Level 8.4 mg/dL (8.5-10.1) Magnesium Level 2.1 mg/dL (1.8-2.4) Troponin I Quantitative 0.017 ng/mL (0.000-0.055) Test 12/20/18 07:37 Glucose (Fingerstick) 199 mg/dL (70-99) Objective: Assessment: 1. Sepsis, source right lower extremity cellulitis. 2. Right lower extremity cellulitis with underlying chronic venous stasis. 3. Diabetes mellitus. 4. Left hemipelvectomy from before. 5. Chronic kidney disease. 6. Thrombocytopenia. 7. Diabetes mellitus. 8. Tinea. 9. Early dementia. 10. Normocytic anemia. 11. Hyponatremia. 12. PAD Plan: Plan of Care Dc Zyvox cont cefazolin/micafungin Elevate right lower extremity. Continue local care. Consult vascular surgery d/w MYCHAL DAILEY MD Dec 20, 2018 10:21
[2018-12-20 11:00] VITALS: BP 164/52
--- NOTE | 2018-12-20 11:18 | NUR ---
WANDA faxed updates to [facility] and rehab, phone: [phone], fax: [phone]. Will continue to follow.
--- NOTE | 2018-12-20 12:56 | PDOC2 ---
RASHI VILLAFANA VALUATION MANAGER 12/20/18 1256: CARDIAC CONSULT DATE OF CONSULT Date of Consult DATE: 12/20/18 TIME: 12:35 REASON FOR CONSULT Reason for Consult: run of [place] REFERRING PHYSICIAN Referring Physician: Fullbright SOURCE Source: Chart review HISTORY OF PRESENT ILLNESS HISTORY OF PRESENT ILLNESS This is a 68 yo male admitted for complains of swelling to right leg. This has been worsening in the last 2 weeks. Upon further check he has been noted with RLE cellulitis with severe PAD. He is a LAKA because of past infection. Denies any chest pain or SOA. He sees Dr. Alonso from [facility] as his carpenter refrigerator. He is WC bound and has not been having any palpitations or any recent falls or injury. He last saw his carpenter refrigerator about 6 months and was told that he was doing fine. He could not remember his last stress test but ist has been a while as well as his LHC. His CABG was in the and has had at least LHC since then with some stents. PAST MEDICAL HISTORY Cardiovascular: CAD, HTN Pulmonary: COPD CENTRAL NERVOUS SYSTEM: Carpal Tunnel Syndrome, Dementia (alzheimers), Other ( parkinsons) GI: GERD ENT: Other (retinopathy; macular degeneration) Renal/: Chronic renal insuff Endocrine: Diabetes (2) Dermatology: Other (onychomycoses) PAST SURGICAL HISTORY Past Surgical History: Cholecystectomy, CABG, Other (left AKA; bilateral carpal tunnel repair) FAMILY HISTORY Family History: Diabetes, Heart Disease SOCIAL HISTORY Smoke: Quit ALCOHOL: none Drugs: None Lives: Alone CURRENT MEDICATIONS CURRENT MEDICATIONS Current Medications Medications (Trade) Dose Ordered Sig/Katya Route PRN Reason Start Time Stop Time Status Last Admin Dose Admin Zolpidem Tartrate (Ambien) 5 mg PRN QHS PRN PO INSOMNIA 12/20/18 00:15 12/20/18 00:13 ALLERGIES ALLERGIES: Coded Allergies: atropine (Verified Allergy, Intermediate, 01/09/15) passed out hyoscyamine (Verified Allergy, Intermediate, 01/09/15) passed out lidocaine (Unverified Allergy, Intermediate, 01/09/15) passed out phenobarbital (Unverified Allergy, Intermediate, 03/29/14) scopolamine (Unverified Allergy, Intermediate, Unknown, 01/09/15) ROS Review of System 14 point ROS evlauated with pertinent positives noted per HPI PHYSICAL EXAM General: Alert, Oriented X3, Cooperative HEENT: Atraumatic, Mucous membr. moist/pink Lungs: Other (basilar crackles) Heart: Regular rate (SR), Normal S1, Normal S2, Other (3/6 systolic murmur to LLS border) Abdomen: Soft, No tenderness Extremities: No cyanosis, Other Skin: No breakdown, Other (RLE dermatitis) Neuro: Normal speech, Sensation intact Psych/Mental Status: Mental status NL, Mood NL MUSCULOSKELETAL: Osteoarthritic changes both hands VITALS VITALS Vital Signs Date Time Temp Pulse Resp B/P (MAP) Pulse Ox O2 Delivery O2 Flow Rate FiO2 12/20/18 11:40 16 97 Room Air 12/20/18 11:00 98.2 65 164/52 (89) 98.2 LABS Lab: Laboratory Tests Test 12/19/18 16:59 12/19/18 20:20 12/20/18 04:30 12/20/18 07:37 Glucose (Fingerstick) 123 mg/dL (70-99) 190 mg/dL (70-99) 199 mg/dL (70-99) Sodium Level 141 mmol/L (136-145) Potassium Level 4.6 mmol/L (3.5-5.1) Chloride Level 107 mmol/L (98-107) Carbon Dioxide Level 24 mmol/L (21-32) Anion Gap 10 (6-14) Blood Urea Nitrogen 17 mg/dL (8-26) Creatinine 1.3 mg/dL (0.7-1.3) Estimated GFR (Cockcroft-Gault) 54.6 Glucose Level 212 mg/dL (70-99) Calcium Level 8.4 mg/dL (8.5-10.1) Magnesium Level 2.1 mg/dL (1.8-2.4) Troponin I Quantitative 0.017 ng/mL (0.000-0.055) Test 12/20/18 11:43 Glucose (Fingerstick) 314 mg/dL (70-99) ASSESSMENT/PLAN ASSESSMENT/PLAN 1. Arrhythmia: brief NSVT no symptoms. Mg and K nml. SR otherwise 2. RLE cellulitis with sepsis: followed by ID 3. Severe RLE PAD with past LAKA. Vascular was consulted 4. CAD; past CABG 5. Mild Dementia with hx of parkinsons and alzheimers 6. DM2/HLP: BG uncontrolled with A1C 9.6 7. HTN: labile 8. COPD 9. CKD3 10. Normocytic anemia/mild thrombocytopenia Recommendations 1. Add lisinopril if no allergy. Unable to increase coreg further with noted episodes of bradycardia. ASA, statin 2. Continue amlodipine. Hydralazine IV PRN, Continue secondary prevention measures. 3. Check TTE. Will note rhythm trend and will consider switching coreg to metoprolol if need be. 4. Supportive care. CHRISTY EASLEY MD 12/20/18 2143: CARDIAC CONSULT ASSESSMENT/PLAN ASSESSMENT/PLAN Patient seen and examined. Agree with [facility]'s assessment and plan. Episode of NSVT noted. Mg level normal. CAD status clinically stable Check 2D echo to assess LV function Consider event monitor as outpatient with primary carpenter refrigerator Continue treatment for cellulitis/sepsis per ID Thank you for your consultation RASHI VILLAFANA APRN Dec 20, 2018 12:56 CHRISTY EASLEY MD Dec 20, 2018 21:43
[2018-12-20] MEDS ORDERED: LISINOPRIL 10 MG TABLET PO ONE (13:00)
[2018-12-20 13:25] LABS: CHOLESTEROL/HDL RATIO 3.2
[2018-12-20] MEDS: MICAFUNGIN 100 MG in IV DEXTROSE 5% 100ML 100 ML IV SCH (13:32)
--- NOTE | 2018-12-20 14:17 | PDOC ---
Provider Note Provider Note Vascular Surgery Consult Dictated 68 year old male with right leg cellulitis and swelling of the anterior lower leg in the area of the rosales. No infection of tissue breakdown in the foot. He does have PVD with tibial artery disease however no rest pain and tissue loss in the foot. Improving circulation will not significantly help healing of the rosales cellulitis, no intervention is recommended. Continue antibiotics and elevation/compression. MARGARITA PIERCE MD Dec 20, 2018 14:17
[2018-12-20 15:00] VITALS: BP 162/40
[2018-12-20 19:00] VITALS: BP 166/40
--- NOTE | 2018-12-20 20:21 | NUR ---
Pt 1/2NS new bag non-admin, as pt fluids in current bag will continue for several hours due to delays from administration of IV antibiotics/antifungals.
[2018-12-20] MEDS: ENOXAPARIN 40 MG/0.4 ML SYRINGE. SQ SCH (20:46)
[2018-12-20] MEDS: ATORVASTATIN CALCIUM 40 MG TABLET. PO SCH (20:47)
[2018-12-20] MEDS: INSULIN GLARGINE 300 UNITS/3 ML INSULN.PEN. SQ SCH (20:51)
[2018-12-20 22:41] VITALS: BP 168/46
[2018-12-21 03:00] VITALS: BP 156/44
[2018-12-21] MEDS: ceFAZolin SODIUM 1 GM in IV DEXTROSE 5% 50 ML IV SCH ×3 (05:42→20:35)
--- NOTE | 2018-12-21 06:04 | CONS ---
DATE OF CONSULTATION: 12/20/2018 CHIEF COMPLAINT: Right leg cellulitis and vascular disease. HISTORY OF PRESENT ILLNESS: The patient is a 68-year-old male who has been admitted to the hospital with cellulitis of his right lower leg. He states that the redness has been located on his right rosales throughout the lower leg for approximately the last month. He also has associated swelling in his lower leg. He reports no redness or skin breakdown in his right foot. He states that there is some discomfort in the skin on his right rosales, but there is no pain in his foot. 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 Therefore, he uses a wheelchair for mobility. He does not walk independently. Here in the hospital, he has been treated with antibiotics. He has been evaluated with a right leg arterial duplex scan, which shows evidence of tibial artery disease. REVIEW OF SYSTEMS: A 10-point review of systems was performed, which was otherwise negative besides what is mentioned in the history of present illness. PAST MEDICAL HISTORY: Includes: 1. Coronary artery disease. 2. Hypertension. 3. Chronic obstructive pulmonary disease. 4. Parkinson's. 5. Alzheimer's. 6. Gastroesophageal reflux disease. 7. Chronic renal insufficiency. 8. Diabetes mellitus. PAST SURGICAL HISTORY: Includes: 1. Cholecystectomy. 2. Left high [id number] amputation. 3. Coronary artery bypass graft. FAMILY HISTORY: Significant for diabetes and heart disease. SOCIAL HISTORY: The patient has a history of tobacco abuse; however, has quit smoking and he does not drink alcohol. ALLERGIES: PLEASE SEE HIS FULL MAR, BUT HE IS ALLERGIC TO ATROPINE, LIDOCAINE, PHENOBARBITAL, SCOPOLAMINE. MEDICATION LIST: Please see his full MAR. PHYSICAL EXAMINATION: GENERAL: The patient is awake and alert, currently in no apparent distress. He is afebrile. VITAL SIGNS: Stable. NECK: Supple. HEART: Regular rate and rhythm. LUNGS: He has bilateral breath sounds to auscultation. ABDOMEN: Soft, nondistended and nontender. EXTREMITIES: His right lower extremity has mild swelling of the lower leg and foot, there is a thickening of the skin with inflammation and erythema of the skin along the rosales throughout the lower leg, there are no large open wounds, there is no gangrene or fluctuance. His right foot has no erythema, no skin breakdown or wounds. His skin on the toes are pink with good capillary refill. He has intact motor and sensory function in his right leg. There are no signs of ischemia. His left leg is amputated high at the hip level. NEUROLOGIC: He is awake and alert, moving all extremities, normal speech, no gross neurologic deficits. VASCULAR: I do not palpate pulses in his right foot. He does have swelling, which limits the exam. IMPRESSION: 1. A 68-year-old male with right lower extremity cellulitis and edema throughout the anterior rosales. 2. Right lower extremity peripheral arterial disease. PLAN: The patient has right lower extremity peripheral arterial disease. Duplex scan shows mainly tibial artery occlusive disease. He has no symptoms of ischemic rest pain in his foot and his foot has no tissue breakdown. The cellulitis and skin changes are in his rosales. I do not feel that revascularization is going to significantly improve the cellulitis or healing of the skin since this is not an arterial distribution. I do not recommend any vascular intervention at this point. I do recommend continuing antibiotics and elevation of his right leg. MARGARITA PIERCE MD DR: PETE/akren JOB#: [id number] / [id number]
[2018-12-21 07:00] VITALS: BP 173/63
[2018-12-21 07:14] LABS: BASO % 0 % (0-3); EOS # 0.5 x10^3/uL (0.0-0.7); EOS % 11 % (0-3); HEMATOCRIT 29.6 % (39.0-53.0); HEMOGLOBIN 9.5 g/dL (13.0-17.5); LYMPH # 0.9 x10^3/uL (1.0-4.8); LYMPH % 19 % (24-48); MEAN CORPUSCULAR HEMOGLOBIN 28 pg (25-35); MEAN CORPUSCULAR HGB CONC 32 g/dL (31-37); MEAN CORPUSCULAR VOLUME 87 fL (79-100); MONO # 0.4 x10^3/uL (0.0-1.1); MONO % 9 % (0-9); NEUT # 2.8 x10^3uL (1.8-7.7); NEUT % 61 % (31-73); PLATELET COUNT 105 x10^3/uL (140-400); RED BLOOD COUNT 3.41 x10^6/uL (4.30-5.70); RED CELL DISTRIBUTION WIDTH 16.1 % (11.5-14.5); WHITE BLOOD COUNT 4.6 x10^3/uL (4.0-11.0)
[2018-12-21 07:32] LABS: ALBUMIN 2.4 g/dL (3.4-5.0); ALBUMIN/GLOBULIN RATIO 0.7 (1.0-1.7); CALCIUM 8.2 mg/dL (8.5-10.1); CREATININE 1.3 mg/dL (0.7-1.3); GFR 54.6; POTASSIUM 4.8 mmol/L (3.5-5.1); TOTAL BILIRUBIN 0.1 mg/dL (0.2-1.0); TOTAL PROTEIN 5.8 g/dL (6.4-8.2)
[2018-12-21] MEDS: INSULIN LISPRO 300 UNITS/3 ML INSULN.PEN. SQ SCH ×6 (08:18→18:07)
[2018-12-21] MEDS: CITALOPRAM 20 MG TABLET. PO SCH (08:20)
[2018-12-21] MEDS: amLODIPine BESYLATE 5 MG TABLET PO SCH ×2 (08:21→20:23)
[2018-12-21] MEDS: FENOFIBRATE,MICRONIZED 134 MG CAPSULE PO SCH (08:21)
[2018-12-21] MEDS: DONEPEZIL HCL 5 MG TABLET. PO SCH ×2 (08:21→20:23)
[2018-12-21] MEDS: CARVEDILOL 12.5 MG TABLET. PO SCH (08:22)
[2018-12-21] MEDS: TAMSULOSIN 0.4 MG CAP.ER.24H. PO SCH (08:22)
[2018-12-21] MEDS: LISINOPRIL 10 MG TABLET PO SCH (08:23)
[2018-12-21] MEDS: LACTOBACILLUS RHAMNOSUS GG 1 CAPSULE. PO SCH ×2 (08:23→20:23)
[2018-12-21] MEDS: ASPIRIN CHEWABLE 81 MG TABLET. PO SCH ×2 (08:24→20:23)
--- NOTE | 2018-12-21 10:13 | CARD ---
MR#: [id number] Date of Study: 12/21/2018 Ordering Physician: RASHI VILLAFANA, Referring Physician: DEE STOKES Tech: Ifrah Whiteside RDCS APPROVED REPORT EXAM: Two-dimensional and M-mode echocardiogram with Doppler and color Doppler. Other Information Quality : AverageHR: 60bpm Rhythm : Other INDICATION CAD Surgery/Intervention CABG: RISK FACTORS Hypertension Diabetes 2D DIMENSIONS RVDd2.9 (2.9-3.5cm)Left Atrium(2D)4.1 (1.6-4.0cm) IVSd1.1 (0.7-1.1cm)Aortic Root(2D)3.0 (2.0-3.7cm) LVDd4.6 (3.9-5.9cm)LVOT Diameter1.7 (1.8-2.4cm) PWd1.1 (0.7-1.1cm)IVSs1.4 (0.8-1.2cm) LVDs3.1 (2.5-4.0cm)FS (%) 32.1 % PWs1.6 (0.8-1.2cm)SV57.8 ml LVEF(%)60.4 (>50%) M-Mode DIMENSIONS Left Atrium(MM)4.09 (2.5-4.0cm)Aortic Root2.88 (2.2-3.7cm) Aortic Valve AoV Peak Jayant.166.8cm/sAoV VTI32.9cm AO Peak GR.11.1mmHgLVOT Peak Jayant.96.1cm/s LVOT VTI 21.86cmAO Mean GR.6mmHg BECKIE (VMAX)1.90fc0KGF (VTI)1.43cm2 Mitral Valve MV E Ilfcqmcz231.8cm/sMV DECEL [id number] MV A Hueslser400.3cm/sMV [id number] E/A Ratio0.9MVA (PHT)3.49cm2 Pulmonary Valve PV Peak Wsaiijup679.7cm/sPV Peak Grad.7mmHg LEFT VENTRICLE The left ventricle is normal size. There is mild concentric left ventricular hypertrophy. The left ve ntricular systolic function is normal. The Ejection Fraction is 55-60%. There is normal LV segmental wall motion. Transmitral Doppler flow pattern is Grade I-abnormal relaxation pattern. RIGHT VENTRICLE The right ventricle is normal size. There is normal right ventricular wall thickness. The right ventr icular systolic function is normal. ATRIA The left atrium is mildly dilated. The right atrium size is normal. The interatrial septum is intact with no evidence for an atrial septal defect or patent foramen ovale as noted on 2-D or Doppler imagi ng. AORTIC VALVE The aortic valve is thickened but opens well. The aortic valve is trileaflet. Doppler and Color Flow revealed no significant aortic regurgitation. There is no significant aortic valvular stenosis. MITRAL VALVE The mitral valve is normal in structure and function. There is no evidence of mitral valve prolapse. There is no mitral valve stenosis. Doppler and Color-flow revealed trace mitral regurgitation. TRICUSPID VALVE The tricuspid valve is normal in structure and function. Doppler and Color Flow revealed no tricuspid valve regurgitation noted. There is no tricuspid valve prolapse or vegetation. There is no tricuspid valve stenosis. PULMONIC VALVE The pulmonic valve is not well visualized. GREAT VESSELS The aortic root is normal in size. The ascending aorta is normal in size. The IVC was not visualized. PERICARDIAL EFFUSION There is no evidence of significant pericardial effusion. Critical Notification Critical Value: No <Conclusion> The left ventricular systolic function is normal. The Ejection Fraction is 55-60%. There is normal LV segmental wall motion. The left atrium is mildly dilated. Doppler and Color-flow revealed trace mitral regurgitation. There is no evidence of significant pericardial effusion. Signed by : Victor Hugo Watt, Electronically Approved : 12/21/2018 10:13:22
[2018-12-21 11:00] VITALS: BP 161/53
--- NOTE | 2018-12-21 11:21 | PDOC ---
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 HYPERNATREMIA, volume depleted D/C Zyvox/ CONT cefazolin/micafungin admit VASCULAR SURGERY no plans for vascular surgery operation ID CONSULT ESR 35 MIN PT EXAM, CHART REVIEW, > 50% of time spent with exam, chart review, pt care coordination Vitals Vitals Vital Signs Date Time Temp Pulse Resp B/P (MAP) Pulse Ox O2 Delivery O2 Flow Rate FiO2 12/21/18 11:00 97.4 60 18 161/53 (89) 99 Room Air 97.4 Physical Exam Physical Exam GENERAL: Well-developed, well-nourished male lying in bed comfortably, in no acute distress, comfortable. HEENT: Normocephalic, atraumatic, anicteric. No thrush. Oral mucosa moist. NECK: Supple. No JVD. LUNGS: Clear bilaterally. No wheezing. HEART: S1, S2 with no gallops or murmurs. ABDOMEN: Soft, obese. Bowel sounds present. Nontender, nondistended. EXTREMITIES: Left AKA, hemipelvectomy, right lower extremity, diabetic lipidic changes present, chronic venous stasis changes present. There are few blisters present with weeping lesion of the right anterior lower extremity, slight warmth. No purulent drainage. NEUROLOGIC: Alert and oriented x 3. Grossly nonfocal. PSYCHIATRIC: Cooperative, appropriate mood and affect. General: Alert, Oriented X3, Cooperative Heart: Regular rate (SR), Normal S1, Normal S2, Other (3/6 systolic murmur to LLS border) Lungs: Clear Abdomen: Soft, No tenderness Extremities: No cyanosis, Other Skin: No breakdown, Other (RLE dermatitis) Labs LABS Laboratory Tests Test 4/17/19 11:43 12/20/18 16:28 12/20/18 20:39 12/21/18 06:11 Glucose (Fingerstick) 314 mg/dL (70-99) 293 mg/dL (70-99) 259 mg/dL (70-99) White Blood Count 4.6 x10^3/uL (4.0-11.0) Red Blood Count 3.41 x10^6/uL (4.30-5.70) Hemoglobin 9.5 g/dL (13.0-17.5) Hematocrit 29.6 % (39.0-53.0) Mean Corpuscular Volume 87 fL (79-100) Mean Corpuscular Hemoglobin 28 pg (25-35) Mean Corpuscular Hemoglobin Concent 32 g/dL (31-37) Red Cell Distribution Width 16.1 % (11.5-14.5) Platelet Count 105 x10^3/uL (140-400) Neutrophils (%) (Auto) 61 % (31-73) Lymphocytes (%) (Auto) 19 % (24-48) Monocytes (%) (Auto) 9 % (0-9) Eosinophils (%) (Auto) 11 % (0-3) Basophils (%) (Auto) 0 % (0-3) Neutrophils # (Auto) 2.8 x10^3uL (1.8-7.7) Lymphocytes # (Auto) 0.9 x10^3/uL (1.0-4.8) Monocytes # (Auto) 0.4 x10^3/uL (0.0-1.1) Eosinophils # (Auto) 0.5 x10^3/uL (0.0-0.7) Basophils # (Auto) 0.0 x10^3/uL (0.0-0.2) Sodium Level 145 mmol/L (136-145) Potassium Level 4.8 mmol/L (3.5-5.1) Chloride Level 110 mmol/L (98-107) Carbon Dioxide Level 27 mmol/L (21-32) Anion Gap 8 (6-14) Blood Urea Nitrogen 20 mg/dL (8-26) Creatinine 1.3 mg/dL (0.7-1.3) Estimated GFR (Cockcroft-Gault) 54.6 BUN/Creatinine Ratio 15 (6-20) Glucose Level 258 mg/dL (70-99) Calcium Level 8.2 mg/dL (8.5-10.1) Total Bilirubin 0.1 mg/dL (0.2-1.0) Aspartate Amino Transf (AST/SGOT) 52 U/L (15-37) Alanine Aminotransferase (ALT/SGPT) 134 U/L (16-63) Alkaline Phosphatase 118 U/L (46-116) Total Protein 5.8 g/dL (6.4-8.2) Albumin 2.4 g/dL (3.4-5.0) Albumin/Globulin Ratio 0.7 (1.0-1.7) Test 12/21/18 07:55 Glucose (Fingerstick) 276 mg/dL (70-99) Assessment and Plan Assessmemt and Plan Problems Medical Problems: (1) Cellulitis Status: Acute (2) Diabetes Status: Acute (3) Hyperkalemia Status: Acute Comment Review of Relevant I have reviewed the following items reinaldo (where applicable) has been applied. Labs Laboratory Tests Test 12/19/18 16:59 12/19/18 20:20 12/20/18 04:30 12/20/18 07:37 Glucose (Fingerstick) 123 mg/dL (70-99) 190 mg/dL (70-99) 199 mg/dL (70-99) Sodium Level 141 mmol/L (136-145) Potassium Level 4.6 mmol/L (3.5-5.1) Chloride Level 107 mmol/L (98-107) Carbon Dioxide Level 24 mmol/L (21-32) Anion Gap 10 (6-14) Blood Urea Nitrogen 17 mg/dL (8-26) Creatinine 1.3 mg/dL (0.7-1.3) Estimated GFR (Cockcroft-Gault) 54.6 Glucose Level 212 mg/dL (70-99) Calcium Level 8.4 mg/dL (8.5-10.1) Magnesium Level 2.1 mg/dL (1.8-2.4) Troponin I Quantitative 0.017 ng/mL (0.000-0.055) Triglycerides Level 232 mg/dL (0-150) Cholesterol Level 118 mg/dL (0-200) LDL Cholesterol, Calculated 35 mg/dL (0-100) VLDL Cholesterol, Calculated 46 mg/dL (0-40) Non-HDL Cholesterol Calculated 81 mg/dL (0-129) HDL Cholesterol 37 mg/dL (40-60) Cholesterol/HDL Ratio 3.2 Test 12/20/18 11:43 12/20/18 16:28 12/20/18 20:39 12/21/18 06:11 Glucose (Fingerstick) 314 mg/dL (70-99) 293 mg/dL (70-99) 259 mg/dL (70-99) White Blood Count 4.6 x10^3/uL (4.0-11.0) Red Blood Count 3.41 x10^6/uL (4.30-5.70) Hemoglobin 9.5 g/dL (13.0-17.5) Hematocrit 29.6 % (39.0-53.0) Mean Corpuscular Volume 87 fL (79-100) Mean Corpuscular Hemoglobin 28 pg (25-35) Mean Corpuscular Hemoglobin Concent 32 g/dL (31-37) Red Cell Distribution Width 16.1 % (11.5-14.5) Platelet Count 105 x10^3/uL (140-400) Neutrophils (%) (Auto) 61 % (31-73) Lymphocytes (%) (Auto) 19 % (24-48) Monocytes (%) (Auto) 9 % (0-9) Eosinophils (%) (Auto) 11 % (0-3) Basophils (%) (Auto) 0 % (0-3) Neutrophils # (Auto) 2.8 x10^3uL (1.8-7.7) Lymphocytes # (Auto) 0.9 x10^3/uL (1.0-4.8) Monocytes # (Auto) 0.4 x10^3/uL (0.0-1.1) Eosinophils # (Auto) 0.5 x10^3/uL (0.0-0.7) Basophils # (Auto) 0.0 x10^3/uL (0.0-0.2) Sodium Level 145 mmol/L (136-145) Potassium Level 4.8 mmol/L (3.5-5.1) Chloride Level 110 mmol/L (98-107) Carbon Dioxide Level 27 mmol/L (21-32) Anion Gap 8 (6-14) Blood Urea Nitrogen 20 mg/dL (8-26) Creatinine 1.3 mg/dL (0.7-1.3) Estimated GFR (Cockcroft-Gault) 54.6 BUN/Creatinine Ratio 15 (6-20) Glucose Level 258 mg/dL (70-99) Calcium Level 8.2 mg/dL (8.5-10.1) Total Bilirubin 0.1 mg/dL (0.2-1.0) Aspartate Amino Transf (AST/SGOT) 52 U/L (15-37) Alanine Aminotransferase (ALT/SGPT) 134 U/L (16-63) Alkaline Phosphatase 118 U/L (46-116) Total Protein 5.8 g/dL (6.4-8.2) Albumin 2.4 g/dL (3.4-5.0) Albumin/Globulin Ratio 0.7 (1.0-1.7) Test 12/21/18 07:55 Glucose (Fingerstick) 276 mg/dL (70-99) Laboratory Tests Test 12/20/18 11:43 12/20/18 16:28 12/20/18 20:39 12/21/18 06:11 Glucose (Fingerstick) 314 mg/dL (70-99) 293 mg/dL (70-99) 259 mg/dL (70-99) White Blood Count 4.6 x10^3/uL (4.0-11.0) Red Blood Count 3.41 x10^6/uL (4.30-5.70) Hemoglobin 9.5 g/dL (13.0-17.5) Hematocrit 29.6 % (39.0-53.0) Mean Corpuscular Volume 87 fL (79-100) Mean Corpuscular Hemoglobin 28 pg (25-35) Mean Corpuscular Hemoglobin Concent 32 g/dL (31-37) Red Cell Distribution Width 16.1 % (11.5-14.5) Platelet Count 105 x10^3/uL (140-400) Neutrophils (%) (Auto) 61 % (31-73) Lymphocytes (%) (Auto) 19 % (24-48) Monocytes (%) (Auto) 9 % (0-9) Eosinophils (%) (Auto) 11 % (0-3) Basophils (%) (Auto) 0 % (0-3) Neutrophils # (Auto) 2.8 x10^3uL (1.8-7.7) Lymphocytes # (Auto) 0.9 x10^3/uL (1.0-4.8) Monocytes # (Auto) 0.4 x10^3/uL (0.0-1.1) Eosinophils # (Auto) 0.5 x10^3/uL (0.0-0.7) Basophils # (Auto) 0.0 x10^3/uL (0.0-0.2) Sodium Level 145 mmol/L (136-145) Potassium Level 4.8 mmol/L (3.5-5.1) Chloride Level 110 mmol/L (98-107) Carbon Dioxide Level 27 mmol/L (21-32) Anion Gap 8 (6-14) Blood Urea Nitrogen 20 mg/dL (8-26) Creatinine 1.3 mg/dL (0.7-1.3) Estimated GFR (Cockcroft-Gault) 54.6 BUN/Creatinine Ratio 15 (6-20) Glucose Level 258 mg/dL (70-99) Calcium Level 8.2 mg/dL (8.5-10.1) Total Bilirubin 0.1 mg/dL (0.2-1.0) Aspartate Amino Transf (AST/SGOT) 52 U/L (15-37) Alanine Aminotransferase (ALT/SGPT) 134 U/L (16-63) Alkaline Phosphatase 118 U/L (46-116) Total Protein 5.8 g/dL (6.4-8.2) Albumin 2.4 g/dL (3.4-5.0) Albumin/Globulin Ratio 0.7 (1.0-1.7) Test 12/21/18 07:55 Glucose (Fingerstick) 276 mg/dL (70-99) Microbiology 12/17/18 Blood Culture - Preliminary, Resulted NO GROWTH AFTER 3 DAYS 12/19/18 Anaerobic/Aerobic Culture, Resulted Pending 12/19/18 Anaerobic Culture Result 1 (RENETTA), Resulted Pending 12/19/18 Aerobic Culture, Resulted Pending 12/19/18 Aerobic Culture Result 1 (RENETTA), Resulted Pending 12/19/18 Gram Stain - Final, Resulted 12/19/18 Gram Stain Result 1 (RENETTA) - Final, Resulted 12/19/18 Gram Stain Result 2 (RENETTA) - Final, Resulted Medications Current Medications Morphine Sulfate (Morphine Sulfate) 5 mg 1X ONCE IV Last administered on at 16:02; Start 12/17/18 at 15:45; Stop 12/17/18 at 15:46; Status DC Vancomycin HCl (Vanco Per Pharmacy) 1 each PRN DAILY PRN MC SEE COMMENTS Last administered on 12/17/18at 19:07; Start 12/17/18 at 15:45; Stop 12/18/18 at 11:47 ; Status DC Vancomycin HCl 1.5 gm/Sodium Chloride 500 ml @ 250 mls/hr 1X ONCE IV Last administered on 12/17/18at 16:07; Start 12/17/18 at 16:00; Stop 12/17/18 at 17:59 ; Status DC Sodium Polystyrene Sulfonate (Kayexalate) 15 gm 1X ONCE PO Last administered on 12/17/18at 16:45; Start 12/17/18 at 16:45; Stop 12/17/18 at 16:46; Status DC Sodium Chloride 1,000 ml @ 1,000 mls/hr 1X ONCE IV Last administered on at 16:50; Start 12/17/18 at 16:45; Stop 12/17/18 at 17:44; Status DC Ondansetron HCl (Zofran) 4 mg PRN Q8HRS PRN IV NAUSEA/VOMITING; Start 12/17/18 at 17:15; Stop 12/18/18 at 17:14; Status DC Fentanyl Citrate (Fentanyl 2ml Vial) 50 mcg PRN Q1HR PRN IV PAIN; Start at 17:15; Stop 12/18/18 at 17:14; Status DC Sodium Chloride 1,000 ml @ 100 mls/hr Q10H IV Last administered on 12/18/18at 08:19; Start 12/17/18 at 17:05; Stop 12/18/18 at 16:07; Status DC Acetaminophen (Tylenol) 650 mg PRN Q4HRS PRN PO FEVER; Start 12/17/18 at 17:15 ; Stop 12/18/18 at 17:14; Status DC Insulin Human Lispro (HumaLOG) 0-5 UNITS TIDWMEALS SQ ; Start 12/18/18 at 08:00 ; Stop 12/18/18 at 10:14; Status DC Dextrose (Dextrose 50%-Water Syringe) 12.5 gm PRN Q15MIN PRN IV SEE COMMENTS; Start 12/17/18 at 17:15; Stop 12/18/18 at 10:14; Status DC Insulin Human Regular (HumuLIN R VIAL) 10 unit 1X ONCE IV Last administered on 12/17/18at 17:15; Start 12/17/18 at 17:15; Stop 12/17/18 at 17:16; Status DC Sodium Chloride 1,000 ml @ 1,000 mls/hr 1X ONCE IV ; Start 12/17/18 at 17:15; Stop 12/17/18 at 18:14; Status DC Amlodipine Besylate (Norvasc) 5 mg BID PO Last administered on 12/21/18 08:21 ; Start 12/17/18 at 21:00 Aspirin (Children'S Aspirin) 81 mg BID PO Last administered on 12/21/18 08:24 ; Start 12/17/18 at 21:00 Atorvastatin Calcium (Lipitor) 40 mg HS PO Last administered on 12/20/18at 20:47 ; Start 12/17/18 at 21:00 Carvedilol (Coreg) 12.5 mg DAILY PO Last administered on 12/21/18 08:22; Start 12/18/18 at 09:00 Citalopram Hydrobromide (CeleXA) 20 mg DAILY PO Last administered on 12/21/18 08:20; Start 12/18/18 at 09:00 Acetaminophen/ Hydrocodone Bitart (Lortab 5/325) 1 tab PRN Q6HRS PRN PO MODERATE PAIN Last administered on 12/20/18at 11:40; Start 12/17/18 at 17:45 Insulin Glargine (Lantus) 20 units HS SQ Last administered on 12/20/18at 20:51; Start 12/17/18 at 21:00 Tamsulosin HCl (Flomax) 0.4 mg DAILY PO Last administered on 12/21/18 08:22; Start 12/18/18 at 09:00 Donepezil HCl (Aricept) 5 mg BID PO Last administered on 12/21/18 08:21; Start 12/17/18 at 21:00 Fenofibrate (Lofibra) 134 mg DAILY PO Last administered on 4/18/19at 08:21; Start 12/18/18 at 09:00 Insulin Human Lispro (HumaLOG) 0-7 UNITS TIDWMEALS SQ Last administered on 12/21at 08:18; Start 12/18/18 at 08:00 Dextrose (Dextrose 50%-Water Syringe) 12.5 gm PRN Q15MIN PRN IV SEE COMMENTS; Start 12/17/18 at 17:45 Insulin Human Lispro (HumaLOG) 10 units TIDWMEALS SQ Last administered on at 08:19; Start 12/18/18 at 08:00 Enoxaparin Sodium (Lovenox Per Pharmacy Prophylaxis Dosing) 1 each PRN DAILY PRN MC SEE COMMENTS; Start 12/17/18 at 17:45 Enoxaparin Sodium (Lovenox 40mg Syringe) 40 mg Q24H SQ Last administered on at 20:46; Start 12/17/18 at 19:00 Vancomycin HCl 1 gm/Sodium Chloride 250 ml @ 250 mls/hr Q24H IV ; Start at 16:00; Stop 12/18/18 at 16:00; Status DC Vancomycin HCl (Vancomycin Trough Level) 1 each 1X ONCE MC ; Start 12/19/18 at 15:30; Stop 12/19/18 at 15:30; Status DC Sodium Chloride 1,000 ml @ 75 mls/hr [id number] IV Last administered on at 22:22; Start 12/18/18 at 10:15 Lactobacillus Rhamnosus (Culturelle) 1 cap BID PO Last administered on at 08:23; Start 12/18/18 at 21:00 Cefazolin Sodium 1 gm/Dextrose 50 ml @ 100 mls/hr Q8HRS IV Last administered on 12/21/18at 05:42; Start 12/18/18 at 14:00 Linezolid (Zyvox) 600 mg BID PO Last administered on 12/20/18at 08:38; Start at 12:30; Stop 12/20/18 at 10:55; Status DC Micafungin Sodium 100 mg/Dextrose 100 ml @ 100 mls/hr Q24H IV Last administered on 12/20/18at 13:32; Start 12/18/18 at 13:00 Morphine Sulfate (Morphine Sulfate) 2 mg PRN Q6HRS PRN IV SEVERE PAIN Last administered on 12/19/18at 18:24; Start 12/19/18 at 04:30 Hydralazine HCl (Apresoline Inj) 10 mg PRN Q6HRS PRN IVP ELEVATED BP, SEE COMMENTS Last administered on 12/20/18at 00:15; Start 12/19/18 at 04:30 Zolpidem Tartrate (Ambien) 5 mg PRN QHS PRN PO INSOMNIA Last administered on at 00:13; Start 12/20/18 at 00:15 Lisinopril (Prinivil) 10 mg DAILY PO Last administered on 12/21/18at 08:23; Start 12/21/18 at 09:00 Lisinopril (Prinivil) 10 mg 1X ONCE PO Last administered on 12/20/18at 13:27; Start 12/20/18 at 13:00; Stop 12/20/18 at 13:01; Status DC Active Scripts Active Reported Hydrocodone-Apap 5-325 (Hydrocodone Bit/Acetaminophen) 1 Each Tablet 1 Tab PO PRN Q6HRS PRN Amlodipine Besylate 5 Mg Tablet 5 Mg PO BID Propranolol Hcl 80 Mg Cap.sa.24h 80 Mg PO DAILY Aricept (Donepezil Hcl) 5 Mg Tablet 5 Mg PO BID Aspirin 81 Mg Tab.chew 81 Mg PO BID Lipitor (Atorvastatin Calcium) 40 Mg Tablet 40 Mg PO HS Coreg (Carvedilol) 12.5 Mg Tablet 12.5 Mg PO DAILY Novolog Flexpen (Insulin Aspart) 100 Unit/1 Ml Insuln.pen 100 Unit SQ Lantus Solostar (Insulin Glargine,Hum.rec.anlog) 100 Unit/1 Ml Insuln.pen 20 Unit SQ HS Flomax (Tamsulosin Hcl) 0.4 Mg Cap.er.24h 0.4 Mg PO DAILY Celexa (Citalopram Hydrobromide) 20 Mg Tablet 20 Mg PO DAILY Fenofibrate 160 Mg Tablet 160 Mg PO DAILY Vitals/I & O Vital Sign - Last 24 Hours 12/20/18 12/20/18 12/20/18 12/20/18 11:40 12:40 13:27 15:00 Temp 97.5 97.5 Pulse 61 59 Resp 16 18 18 B/P (MAP) 167/56 162/40 (80) Pulse Ox 97 97 98 O2 Delivery Room Air Room Air Room Air 12/20/18 12/20/18 12/20/18 12/20/18 19:00 19:38 20:47 22:41 Temp 98.2 97.9 98.2 97.9 Pulse 59 59 61 Resp 17 B/P (MAP) 166/40 (82) 166/40 168/46 (86) Pulse Ox 98 97 O2 Delivery Room Air Room Air Room Air 12/21/18 12/21/18 12/21/18 12/21/18 03:00 07:00 07:40 08:21 Temp 98.4 97.5 98.4 97.5 Pulse 68 67 68 Resp 18 18 B/P (MAP) 156/44 (81) 173/63 (99) 156/44 Pulse Ox 98 97 O2 Delivery Room Air Room Air Room Air 12/21/18 12/21/18 12/21/18 08:22 08:23 11:00 Temp 97.4 97.4 Pulse 68 68 60 Resp 18 B/P (MAP) 156/44 156/44 161/53 (89) Pulse Ox 99 O2 Delivery Room Air Intake and Output 12/20/18 12/20/18 12/21/18 14:59 22:59 06:59 Intake Total 540 ml 1360 ml 50 ml Output Total 200 ml 1 ml 0 ml Balance 340 ml 1359 ml 50 ml ART ROBERTS MD Dec 21, 2018 11:21
--- NOTE | 2018-12-21 11:49 | PDOC ---
Infectious Disease Note Subjective: Subjective pt without complaints wants to be dc no f/c/n/v/d/sob ROS: ROS Negative except for above. Vital Signs: Vital Signs Vital Signs Date Time Temp Pulse Resp B/P (MAP) Pulse Ox O2 Delivery O2 Flow Rate FiO2 12/21/18 11:00 97.4 60 18 161/53 (89) 99 Room Air 97.4 Physical Exam: PHYSICAL EXAM GENERAL: Well-developed, well-nourished male lying in bed comfortably, in no acute distress, comfortable. HEENT: Normocephalic, atraumatic, anicteric. No thrush. Oral mucosa moist. NECK: Supple. No JVD. LUNGS: Clear bilaterally. No wheezing. HEART: S1, S2 with no gallops or murmurs. ABDOMEN: Soft, obese. Bowel sounds present. Nontender, nondistended. EXTREMITIES: Left AKA, hemipelvectomy, right lower extremity, diabetic lipidic changes present, chronic venous stasis changes present. There are few blisters present with weeping lesion of the right anterior lower extremity, slight warmth. No purulent drainage. NEUROLOGIC: Alert and oriented x 3. Grossly nonfocal. PSYCHIATRIC: Cooperative, appropriate mood and affect. Medications: Inpatient Meds: Current Medications Medications (Trade) Dose Ordered Sig/Katya Start Time Stop Time Status Last Admin Dose Admin Acetaminophen (Tylenol) 650 mg PRN Q4HRS PRN 12/17/18 17:15 12/18/18 17:14 DC Acetaminophen/ Hydrocodone Bitart (Lortab 5/325) 1 tab PRN Q6HRS PRN 12/17/18 17:45 12/20/18 11:40 1 TAB Amlodipine Besylate (Norvasc) 5 mg BID 12/17/18 21:00 12/21/18 08:21 5 MG Aspirin (Children'S Aspirin) 81 mg BID 12/17/18 21:00 12/21/18 08:24 81 MG Atorvastatin Calcium (Lipitor) 40 mg HS 12/17/18 21:00 12/20/18 20:47 40 MG Carvedilol (Coreg) 12.5 mg DAILY 12/18/18 09:00 12/21/18 08:22 12.5 MG Cefazolin Sodium 1 gm/Dextrose 50 ml @ 100 mls/hr Q8HRS 12/18/18 14:00 12/21/18 05:42 100 MLS/HR Citalopram Hydrobromide (CeleXA) 20 mg DAILY 12/18/18 09:00 12/21/18 08:20 20 MG Dextrose (Dextrose 50%-Water Syringe) 12.5 gm PRN Q15MIN PRN 12/17/18 17:45 Donepezil HCl (Aricept) 5 mg BID 12/17/18 21:00 12/21/18 08:21 5 MG Enoxaparin Sodium (Lovenox 40mg Syringe) 40 mg Q24H 12/17/18 19:00 12/20/18 20:46 40 MG Enoxaparin Sodium (Lovenox Per Pharmacy Prophylaxis Dosing) 1 each PRN DAILY PRN 12/17/18 17:45 Fenofibrate (Lofibra) 134 mg DAILY 12/18/18 09:00 12/21/18 08:21 134 MG Fentanyl Citrate (Fentanyl 2ml Vial) 50 mcg PRN Q1HR PRN 12/17/18 17:15 12/18/18 17:14 DC Hydralazine HCl (Apresoline Inj) 10 mg PRN Q6HRS PRN 12/19/18 04:30 12/20/18 00:15 10 MG Insulin Glargine (Lantus) 20 units HS 12/17/18 21:00 12/20/18 20:51 20 UNITS Insulin Human Lispro (HumaLOG) 10 units TIDWMEALS 12/18/18 08:00 12/21/18 08:19 10 UNITS Insulin Human Regular (HumuLIN R VIAL) 10 unit 1X ONCE 12/17/18 17:15 12/17/18 17:16 DC 12/17/18 17:15 10 UNIT Lactobacillus Rhamnosus (Culturelle) 1 cap BID 12/18/18 21:00 12/21/18 08:23 1 CAP Linezolid (Zyvox) 600 mg BID 12/18/18 12:30 12/20/18 10:55 DC 12/20/18 08:38 600 MG Lisinopril (Prinivil) 10 mg 1X ONCE 12/20/18 13:00 12/20/18 13:01 DC 12/20/18 13:27 10 MG Micafungin Sodium 100 mg/Dextrose 100 ml @ 100 mls/hr Q24H 12/18/18 13:00 12/20/18 13:32 100 MLS/HR Morphine Sulfate (Morphine Sulfate) 2 mg PRN Q6HRS PRN 12/19/18 04:30 12/19/18 18:24 2 MG Ondansetron HCl (Zofran) 4 mg PRN Q8HRS PRN 12/17/18 17:15 12/18/18 17:14 DC Sodium Polystyrene Sulfonate (Kayexalate) 15 gm 1X ONCE 12/17/18 16:45 12/17/18 16:46 DC 12/17/18 16:45 15 GM Sodium Chloride 1,000 ml @ 75 mls/hr [id number] 12/18/18 10:15 12/20/18 22:22 75 MLS/HR Tamsulosin HCl (Flomax) 0.4 mg DAILY 12/18/18 09:00 12/21/18 08:22 0.4 MG Vancomycin HCl (Vanco Per Pharmacy) 1 each PRN DAILY PRN 12/17/18 15:45 12/18/18 11:47 DC 12/17/18 19:07 1 EACH Vancomycin HCl (Vancomycin Trough Level) 1 each 1X ONCE 12/19/18 15:30 12/19/18 15:30 DC Vancomycin HCl 1.5 gm/Sodium Chloride 500 ml @ 250 mls/hr 1X ONCE 12/17/18 16:00 12/17/18 17:59 DC 12/17/18 16:07 250 MLS/HR Vancomycin HCl 1 gm/Sodium Chloride 250 ml @ 250 mls/hr Q24H 12/18/18 16:00 12/18/18 16:00 DC Zolpidem Tartrate (Ambien) 5 mg PRN QHS PRN 12/20/18 00:15 12/20/18 00:13 5 MG Labs: Lab Laboratory Tests Test 12/20/18 16:28 12/20/18 20:39 12/21/18 06:11 12/21/18 07:55 Glucose (Fingerstick) 293 mg/dL (70-99) 259 mg/dL (70-99) 276 mg/dL (70-99) White Blood Count 4.6 x10^3/uL (4.0-11.0) Red Blood Count 3.41 x10^6/uL (4.30-5.70) Hemoglobin 9.5 g/dL (13.0-17.5) Hematocrit 29.6 % (39.0-53.0) Mean Corpuscular Volume 87 fL (79-100) Mean Corpuscular Hemoglobin 28 pg (25-35) Mean Corpuscular Hemoglobin Concent 32 g/dL (31-37) Red Cell Distribution Width 16.1 % (11.5-14.5) Platelet Count 105 x10^3/uL (140-400) Neutrophils (%) (Auto) 61 % (31-73) Lymphocytes (%) (Auto) 19 % (24-48) Monocytes (%) (Auto) 9 % (0-9) Eosinophils (%) (Auto) 11 % (0-3) Basophils (%) (Auto) 0 % (0-3) Neutrophils # (Auto) 2.8 x10^3uL (1.8-7.7) Lymphocytes # (Auto) 0.9 x10^3/uL (1.0-4.8) Monocytes # (Auto) 0.4 x10^3/uL (0.0-1.1) Eosinophils # (Auto) 0.5 x10^3/uL (0.0-0.7) Basophils # (Auto) 0.0 x10^3/uL (0.0-0.2) Sodium Level 145 mmol/L (136-145) Potassium Level 4.8 mmol/L (3.5-5.1) Chloride Level 110 mmol/L (98-107) Carbon Dioxide Level 27 mmol/L (21-32) Anion Gap 8 (6-14) Blood Urea Nitrogen 20 mg/dL (8-26) Creatinine 1.3 mg/dL (0.7-1.3) Estimated GFR (Cockcroft-Gault) 54.6 BUN/Creatinine Ratio 15 (6-20) Glucose Level 258 mg/dL (70-99) Calcium Level 8.2 mg/dL (8.5-10.1) Total Bilirubin 0.1 mg/dL (0.2-1.0) Aspartate Amino Transf (AST/SGOT) 52 U/L (15-37) Alanine Aminotransferase (ALT/SGPT) 134 U/L (16-63) Alkaline Phosphatase 118 U/L (46-116) Total Protein 5.8 g/dL (6.4-8.2) Albumin 2.4 g/dL (3.4-5.0) Albumin/Globulin Ratio 0.7 (1.0-1.7) Objective: Assessment: 1. Sepsis, source right lower extremity cellulitis. 2. Right lower extremity cellulitis with underlying chronic venous stasis. 3. Diabetes mellitus. 4. Left hemipelvectomy from before. 5. Chronic kidney disease. 6. Thrombocytopenia. 7. Diabetes mellitus. 8. Tinea. 9. Early dementia. 10. Normocytic anemia. 11. Hyponatremia. 12. PAD Vascular input noted Plan: Plan of Care cont cefazolin/micafungin ok to dc from id standpoint on keflex Elevate right lower extremity. Continue local care. Vascular input noted d/w MYCHAL DAILEY MD Dec 21, 2018 11:49
[2018-12-21] MEDS: MICAFUNGIN 100 MG in IV DEXTROSE 5% 100ML 100 ML IV SCH (13:46)
[2018-12-21 15:00] VITALS: BP 156/60
[2018-12-21] MEDS: IV 1/2 NORMAL SALINE 1,000 ML IV SCH (18:01)
[2018-12-21] MEDS: ENOXAPARIN 40 MG/0.4 ML SYRINGE. SQ SCH (19:00)
[2018-12-21 19:10] VITALS: BP 178/68
[2018-12-21] MEDS: ATORVASTATIN CALCIUM 40 MG TABLET. PO SCH (20:23)
[2018-12-21] MEDS: INSULIN GLARGINE 300 UNITS/3 ML INSULN.PEN. SQ SCH (20:35)
[2018-12-21] MEDS ORDERED: ENOXAPARIN 40 MG/0.4 ML SYRINGE. SQ SCH (21:00)
[2018-12-21 23:10] VITALS: BP 155/86
[2018-12-22 03:10] VITALS: BP 140/62
[2018-12-22] MEDS: ceFAZolin SODIUM 1 GM in IV DEXTROSE 5% 50 ML IV SCH (06:11)
[2018-12-22 07:00] VITALS: BP 172/54
[2018-12-22] MEDS: FENOFIBRATE,MICRONIZED 134 MG CAPSULE PO SCH (08:06)
[2018-12-22] MEDS: LACTOBACILLUS RHAMNOSUS GG 1 CAPSULE. PO SCH (08:06)
[2018-12-22] MEDS: DONEPEZIL HCL 5 MG TABLET. PO SCH (08:06)
[2018-12-22] MEDS: CITALOPRAM 20 MG TABLET. PO SCH (08:06)
[2018-12-22] MEDS: LISINOPRIL 10 MG TABLET PO SCH (08:07)
[2018-12-22] MEDS: ASPIRIN CHEWABLE 81 MG TABLET. PO SCH (08:07)
[2018-12-22] MEDS: CARVEDILOL 12.5 MG TABLET. PO SCH (08:08)
[2018-12-22] MEDS: TAMSULOSIN 0.4 MG CAP.ER.24H. PO SCH (08:08)
[2018-12-22] MEDS: amLODIPine BESYLATE 5 MG TABLET PO SCH (08:09)
[2018-12-22] MEDS: INSULIN LISPRO 300 UNITS/3 ML INSULN.PEN. SQ SCH ×4 (08:10→11:59)
--- NOTE | 2018-12-22 09:35 | PDOC ---
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 HYPERNATREMIA, volume depleted D/C Zyvox/ CONT cefazolin/micafungin admit VASCULAR SURGERY no plans for vascular surgery operation ID CONSULT ESR home on keflex, wound care HH 35 MIN PT EXAM d/c planning TIME , CHART REVIEW Vitals Vitals Vital Signs Date Time Temp Pulse Resp B/P (MAP) Pulse Ox O2 Delivery O2 Flow Rate FiO2 12/22/18 08:09 63 172/54 12/22/18 08:00 Room Air 12/22/18 07:00 98.5 18 99 98.5 Physical Exam Physical Exam GENERAL: Well-developed, well-nourished male lying in bed comfortably, in no acute distress, comfortable. HEENT: Normocephalic, atraumatic, anicteric. No thrush. Oral mucosa moist. NECK: Supple. No JVD. LUNGS: Clear bilaterally. No wheezing. HEART: S1, S2 with no gallops or murmurs. ABDOMEN: Soft, obese. Bowel sounds present. Nontender, nondistended. EXTREMITIES: Left AKA, hemipelvectomy, right lower extremity, diabetic lipidic changes present, chronic venous stasis changes present. There are few blisters present with weeping lesion of the right anterior lower extremity, slight warmth. No purulent drainage. NEUROLOGIC: Alert and oriented x 3. Grossly nonfocal. PSYCHIATRIC: Cooperative, appropriate mood and affect. General: Alert, Oriented X3, Cooperative Heart: Regular rate (SR), Normal S1, Normal S2, Other (3/6 systolic murmur to LLS border) Lungs: Clear Abdomen: Normal bowel sounds, Soft, No tenderness Extremities: No cyanosis, Other Skin: No breakdown, Other (RLE dermatitis LESS ERYTHEMA) Labs LABS Laboratory Tests Test 12/21/18 11:34 12/21/18 16:55 12/21/18 20:28 12/22/18 07:39 Glucose (Fingerstick) 257 mg/dL (70-99) 268 mg/dL (70-99) 325 mg/dL (70-99) 255 mg/dL (70-99) Assessment and Plan Assessmemt and Plan Problems Medical Problems: (1) Cellulitis Status: Acute (2) Diabetes Status: Acute (3) Hyperkalemia Status: Acute Comment Review of Relevant I have reviewed the following items reinaldo (where applicable) has been applied. Labs Laboratory Tests Test 12/20/18 11:43 12/20/18 16:28 12/20/18 20:39 12/21/18 06:11 Glucose (Fingerstick) 314 mg/dL (70-99) 293 mg/dL (70-99) 259 mg/dL (70-99) White Blood Count 4.6 x10^3/uL (4.0-11.0) Red Blood Count 3.41 x10^6/uL (4.30-5.70) Hemoglobin 9.5 g/dL (13.0-17.5) Hematocrit 29.6 % (39.0-53.0) Mean Corpuscular Volume 87 fL (79-100) Mean Corpuscular Hemoglobin 28 pg (25-35) Mean Corpuscular Hemoglobin Concent 32 g/dL (31-37) Red Cell Distribution Width 16.1 % (11.5-14.5) Platelet Count 105 x10^3/uL (140-400) Neutrophils (%) (Auto) 61 % (31-73) Lymphocytes (%) (Auto) 19 % (24-48) Monocytes (%) (Auto) 9 % (0-9) Eosinophils (%) (Auto) 11 % (0-3) Basophils (%) (Auto) 0 % (0-3) Neutrophils # (Auto) 2.8 x10^3uL (1.8-7.7) Lymphocytes # (Auto) 0.9 x10^3/uL (1.0-4.8) Monocytes # (Auto) 0.4 x10^3/uL (0.0-1.1) Eosinophils # (Auto) 0.5 x10^3/uL (0.0-0.7) Basophils # (Auto) 0.0 x10^3/uL (0.0-0.2) Sodium Level 145 mmol/L (136-145) Potassium Level 4.8 mmol/L (3.5-5.1) Chloride Level 110 mmol/L (98-107) Carbon Dioxide Level 27 mmol/L (21-32) Anion Gap 8 (6-14) Blood Urea Nitrogen 20 mg/dL (8-26) Creatinine 1.3 mg/dL (0.7-1.3) Estimated GFR (Cockcroft-Gault) 54.6 BUN/Creatinine Ratio 15 (6-20) Glucose Level 258 mg/dL (70-99) Calcium Level 8.2 mg/dL (8.5-10.1) Total Bilirubin 0.1 mg/dL (0.2-1.0) Aspartate Amino Transf (AST/SGOT) 52 U/L (15-37) Alanine Aminotransferase (ALT/SGPT) 134 U/L (16-63) Alkaline Phosphatase 118 U/L (46-116) Total Protein 5.8 g/dL (6.4-8.2) Albumin 2.4 g/dL (3.4-5.0) Albumin/Globulin Ratio 0.7 (1.0-1.7) Test 12/21/18 07:55 12/21/18 11:34 12/21/18 16:55 12/21/18 20:28 Glucose (Fingerstick) 276 mg/dL (70-99) 257 mg/dL (70-99) 268 mg/dL (70-99) 325 mg/dL (70-99) Test 12/22/18 07:39 Glucose (Fingerstick) 255 mg/dL (70-99) Laboratory Tests Test 12/21/18 11:34 12/21/18 16:55 12/21/18 20:28 12/22/18 07:39 Glucose (Fingerstick) 257 mg/dL (70-99) 268 mg/dL (70-99) 325 mg/dL (70-99) 255 mg/dL (70-99) Microbiology 12/17/18 Blood Culture - Preliminary, Resulted NO GROWTH AFTER 4 DAYS 12/19/18 Anaerobic/Aerobic Culture, Resulted Pending 12/19/18 Anaerobic Culture Result 1 (RENETTA), Resulted Pending 12/19/18 Aerobic Culture, Resulted Pending 12/19/18 Aerobic Culture Result 1 (RENETTA), Resulted Pending 12/19/18 Gram Stain - Final, Resulted 12/19/18 Gram Stain Result 1 (RENETTA) - Final, Resulted 12/19/18 Gram Stain Result 2 (RENETTA) - Final, Resulted Medications Current Medications Morphine Sulfate (Morphine Sulfate) 5 mg 1X ONCE IV Last administered on at 16:02; Start 12/17/18 at 15:45; Stop 12/17/18 at 15:46; Status DC Vancomycin HCl (Vanco Per Pharmacy) 1 each PRN DAILY PRN MC SEE COMMENTS Last administered on 12/17/18at 19:07; Start 12/17/18 at 15:45; Stop 12/18/18 at 11:47 ; Status DC Vancomycin HCl 1.5 gm/Sodium Chloride 500 ml @ 250 mls/hr 1X ONCE IV Last administered on 12/17/18at 16:07; Start 12/17/18 at 16:00; Stop 12/17/18 at 17:59 ; Status DC Sodium Polystyrene Sulfonate (Kayexalate) 15 gm 1X ONCE PO Last administered on 12/17/18at 16:45; Start 12/17/18 at 16:45; Stop 12/17/18 at 16:46; Status DC Sodium Chloride 1,000 ml @ 1,000 mls/hr 1X ONCE IV Last administered on at 16:50; Start 12/17/18 at 16:45; Stop 12/17/18 at 17:44; Status DC Ondansetron HCl (Zofran) 4 mg PRN Q8HRS PRN IV NAUSEA/VOMITING; Start 12/17/18 at 17:15; Stop 12/18/18 at 17:14; Status DC Fentanyl Citrate (Fentanyl 2ml Vial) 50 mcg PRN Q1HR PRN IV PAIN; Start at 17:15; Stop 12/18/18 at 17:14; Status DC Sodium Chloride 1,000 ml @ 100 mls/hr Q10H IV Last administered on 12/18/18at 08:19; Start 12/17/18 at 17:05; Stop 12/18/18 at 16:07; Status DC Acetaminophen (Tylenol) 650 mg PRN Q4HRS PRN PO FEVER; Start 12/17/18 at 17:15 ; Stop 12/18/18 at 17:14; Status DC Insulin Human Lispro (HumaLOG) 0-5 UNITS TIDWMEALS SQ ; Start 12/18/18 at 08:00 ; Stop 12/18/18 at 10:14; Status DC Dextrose (Dextrose 50%-Water Syringe) 12.5 gm PRN Q15MIN PRN IV SEE COMMENTS; Start 12/17/18 at 17:15; Stop 12/18/18 at 10:14; Status DC Insulin Human Regular (HumuLIN R VIAL) 10 unit 1X ONCE IV Last administered on 12/17/18at 17:15; Start 12/17/18 at 17:15; Stop 12/17/18 at 17:16; Status DC Sodium Chloride 1,000 ml @ 1,000 mls/hr 1X ONCE IV ; Start 12/17/18 at 17:15; Stop 12/17/18 at 18:14; Status DC Amlodipine Besylate (Norvasc) 5 mg BID PO Last administered on 12/22/18 08:09 ; Start 12/17/18 at 21:00 Aspirin (Children'S Aspirin) 81 mg BID PO Last administered on 12/22/18 08:07 ; Start 12/17/18 at 21:00 Atorvastatin Calcium (Lipitor) 40 mg HS PO Last administered on 12/21/18at 20:23 ; Start 12/17/18 at 21:00 Carvedilol (Coreg) 12.5 mg DAILY PO Last administered on 12/22/18 08:08; Start 12/18/18 at 09:00 Citalopram Hydrobromide (CeleXA) 20 mg DAILY PO Last administered on 12/22/18 08:06; Start 12/18/18 at 09:00 Acetaminophen/ Hydrocodone Bitart (Lortab 5/325) 1 tab PRN Q6HRS PRN PO MODERATE PAIN Last administered on 12/20/18at 11:40; Start 12/17/18 at 17:45 Insulin Glargine (Lantus) 20 units HS SQ Last administered on 12/21/18at 20:35; Start 12/17/18 at 21:00 Tamsulosin HCl (Flomax) 0.4 mg DAILY PO Last administered on 12/22/18 08:08; Start 12/18/18 at 09:00 Donepezil HCl (Aricept) 5 mg BID PO Last administered on 12/22/18 08:06; Start 12/17/18 at 21:00 Fenofibrate (Lofibra) 134 mg DAILY PO Last administered on 12/22/18 08:06; Start 12/18/18 at 09:00 Insulin Human Lispro (HumaLOG) 0-7 UNITS TIDWMEALS SQ Last administered on 12/22 08:11; Start 12/18/18 at 08:00 Dextrose (Dextrose 50%-Water Syringe) 12.5 gm PRN Q15MIN PRN IV SEE COMMENTS; Start 12/17/18 at 17:45 Insulin Human Lispro (HumaLOG) 10 units TIDWMEALS SQ Last administered on at 08:10; Start 12/18/18 at 08:00 Enoxaparin Sodium (Lovenox Per Pharmacy Prophylaxis Dosing) 1 each PRN DAILY PRN MC SEE COMMENTS; Start 12/17/18 at 17:45 Enoxaparin Sodium (Lovenox 40mg Syringe) 40 mg Q24H SQ Last administered on at 20:46; Start 12/17/18 at 19:00; Stop 12/21/18 at 19:21; Status DC Vancomycin HCl 1 gm/Sodium Chloride 250 ml @ 250 mls/hr Q24H IV ; Start at 16:00; Stop 12/18/18 at 16:00; Status DC Vancomycin HCl (Vancomycin Trough Level) 1 each 1X ONCE MC ; Start 12/19/18 at 15:30; Stop 12/19/18 at 15:30; Status DC Sodium Chloride 1,000 ml @ 75 mls/hr [id number] IV Last administered on at 18:01; Start 12/18/18 at 10:15 Lactobacillus Rhamnosus (Culturelle) 1 cap BID PO Last administered on 08:06; Start 12/18/18 at 21:00 Cefazolin Sodium 1 gm/Dextrose 50 ml @ 100 mls/hr Q8HRS IV Last administered on 12/22/18at 06:11; Start 12/18/18 at 14:00 Linezolid (Zyvox) 600 mg BID PO Last administered on 12/20/18 08:38; Start at 12:30; Stop 12/20/18 at 10:55; Status DC Micafungin Sodium 100 mg/Dextrose 100 ml @ 100 mls/hr Q24H IV Last administered on 12/21/18at 13:46; Start 12/18/18 at 13:00 Morphine Sulfate (Morphine Sulfate) 2 mg PRN Q6HRS PRN IV SEVERE PAIN Last administered on 12/19/18 18:24; Start 12/19/18 at 04:30 Hydralazine HCl (Apresoline Inj) 10 mg PRN Q6HRS PRN IVP ELEVATED BP, SEE COMMENTS Last administered on 12/20/18at 00:15; Start 12/19/18 at 04:30 Zolpidem Tartrate (Ambien) 5 mg PRN QHS PRN PO INSOMNIA Last administered on at 00:13; Start 12/20/18 at 00:15 Lisinopril (Prinivil) 10 mg DAILY PO Last administered on 12/22/18 08:07; Start 12/21/18 at 09:00 Lisinopril (Prinivil) 10 mg 1X ONCE PO Last administered on 12/20/18 13:27; Start 12/20/18 at 13:00; Stop 12/20/18 at 13:01; Status DC Enoxaparin Sodium (Lovenox 40mg Syringe) 40 mg Q24H SQ Last administered on at 20:24; Start 12/21/18 at 21:00 Active Scripts Active Reported Hydrocodone-Apap 5-325 (Hydrocodone Bit/Acetaminophen) 1 Each Tablet 1 Tab PO PRN Q6HRS PRN Amlodipine Besylate 5 Mg Tablet 5 Mg PO BID Propranolol Hcl 80 Mg Cap.sa.24h 80 Mg PO DAILY Aricept (Donepezil Hcl) 5 Mg Tablet 5 Mg PO BID Aspirin 81 Mg Tab.chew 81 Mg PO BID Lipitor (Atorvastatin Calcium) 40 Mg Tablet 40 Mg PO HS Coreg (Carvedilol) 12.5 Mg Tablet 12.5 Mg PO DAILY Novolog Flexpen (Insulin Aspart) 100 Unit/1 Ml Insuln.pen 100 Unit SQ Lantus Solostar (Insulin Glargine,Hum.rec.anlog) 100 Unit/1 Ml Insuln.pen 20 Unit SQ HS Flomax (Tamsulosin Hcl) 0.4 Mg Cap.er.24h 0.4 Mg PO DAILY Celexa (Citalopram Hydrobromide) 20 Mg Tablet 20 Mg PO DAILY Fenofibrate 160 Mg Tablet 160 Mg PO DAILY Vitals/I & O Vital Sign - Last 24 Hours 12/21/18 12/21/18 12/21/18 12/21/18 11:00 15:00 19:10 20:00 Temp 97.4 97.6 97.9 97.4 97.6 97.9 Pulse 60 59 68 Resp 18 18 20 B/P (MAP) 161/53 (89) 156/60 (92) 178/68 (104) Pulse Ox 99 96 99 O2 Delivery Room Air Room Air Room Air Room Air 12/21/18 12/21/18 12/22/18 12/22/18 20:23 23:10 03:10 07:00 Temp 98.3 98.3 98.5 98.3 98.3 98.5 Pulse 68 60 71 63 Resp 20 20 18 B/P (MAP) 178/68 155/86 (109) 140/62 (88) 172/54 (93) Pulse Ox 95 96 99 O2 Delivery Room Air Room Air Room Air 12/22/18 12/22/18 12/22/18 12/22/18 08:00 08:07 08:08 08:09 Pulse 63 63 63 B/P (MAP) 172/54 172/54 172/54 O2 Delivery Room Air Intake and Output 12/21/18 12/21/18 12/22/18 14:59 22:59 06:59 Intake Total 50 ml 875 ml Output Total 150 ml Balance 50 ml 725 ml ART ROBERTS MD Dec 22, 2018 09:35
--- NOTE | 2018-12-22 10:23 | PDOC ---
Infectious Disease Note Subjective: Subjective pt without complaints wants to be dc no f/c/n/v/d/sob ROS: ROS Negative except for above. Vital Signs: Vital Signs Vital Signs Date Time Temp Pulse Resp B/P (MAP) Pulse Ox O2 Delivery O2 Flow Rate FiO2 12/22/18 08:09 63 172/54 12/22/18 08:00 Room Air 12/22/18 07:00 98.5 18 99 98.5 Physical Exam: PHYSICAL EXAM GENERAL: Well-developed, well-nourished male lying in bed comfortably, in no acute distress, comfortable. HEENT: Normocephalic, atraumatic, anicteric. No thrush. Oral mucosa moist. NECK: Supple. No JVD. LUNGS: Clear bilaterally. No wheezing. HEART: S1, S2 with no gallops or murmurs. ABDOMEN: Soft, obese. Bowel sounds present. Nontender, nondistended. EXTREMITIES: Left AKA, hemipelvectomy, right lower extremity, diabetic lipidic changes present, chronic venous stasis changes present. There are few blisters present with weeping lesion of the right anterior lower extremity, slight warmth. No purulent drainage. NEUROLOGIC: Alert and oriented x 3. Grossly nonfocal. PSYCHIATRIC: Cooperative, appropriate mood and affect. Medications: Inpatient Meds: Current Medications Medications (Trade) Dose Ordered Sig/Katya Start Time Stop Time Status Last Admin Dose Admin Acetaminophen (Tylenol) 650 mg PRN Q4HRS PRN 12/17/18 17:15 12/18/18 17:14 DC Acetaminophen/ Hydrocodone Bitart (Lortab 5/325) 1 tab PRN Q6HRS PRN 12/17/18 17:45 12/20/18 11:40 1 TAB Amlodipine Besylate (Norvasc) 5 mg BID 12/17/18 21:00 12/22/18 08:09 5 MG Aspirin (Children'S Aspirin) 81 mg BID 12/17/18 21:00 12/22/18 08:07 81 MG Atorvastatin Calcium (Lipitor) 40 mg HS 12/17/18 21:00 12/21/18 20:23 40 MG Carvedilol (Coreg) 12.5 mg DAILY 12/18/18 09:00 12/22/18 08:08 12.5 MG Cefazolin Sodium 1 gm/Dextrose 50 ml @ 100 mls/hr Q8HRS 12/18/18 14:00 12/22/18 06:11 100 MLS/HR Citalopram Hydrobromide (CeleXA) 20 mg DAILY 12/18/18 09:00 12/22/18 08:06 20 MG Dextrose (Dextrose 50%-Water Syringe) 12.5 gm PRN Q15MIN PRN 12/17/18 17:45 Donepezil HCl (Aricept) 5 mg BID 12/17/18 21:00 12/22/18 08:06 5 MG Enoxaparin Sodium (Lovenox 40mg Syringe) 40 mg Q24H 12/21/18 21:00 12/21/18 20:24 40 MG Enoxaparin Sodium (Lovenox Per Pharmacy Prophylaxis Dosing) 1 each PRN DAILY PRN 12/17/18 17:45 Fenofibrate (Lofibra) 134 mg DAILY 12/18/18 09:00 12/22/18 08:06 134 MG Fentanyl Citrate (Fentanyl 2ml Vial) 50 mcg PRN Q1HR PRN 12/17/18 17:15 12/18/18 17:14 DC Hydralazine HCl (Apresoline Inj) 10 mg PRN Q6HRS PRN 12/19/18 04:30 12/20/18 00:15 10 MG Insulin Glargine (Lantus) 20 units HS 12/17/18 21:00 12/21/18 20:35 20 UNITS Insulin Human Lispro (HumaLOG) 10 units TIDWMEALS 12/18/18 08:00 12/22/18 08:10 10 UNITS Insulin Human Regular (HumuLIN R VIAL) 10 unit 1X ONCE 12/17/18 17:15 12/17/18 17:16 DC 12/17/18 17:15 10 UNIT Lactobacillus Rhamnosus (Culturelle) 1 cap BID 12/18/18 21:00 12/22/18 08:06 1 CAP Linezolid (Zyvox) 600 mg BID 12/18/18 12:30 12/20/18 10:55 DC 12/20/18 08:38 600 MG Lisinopril (Prinivil) 10 mg 1X ONCE 12/20/18 13:00 12/20/18 13:01 DC 12/20/18 13:27 10 MG Micafungin Sodium 100 mg/Dextrose 100 ml @ 100 mls/hr Q24H 12/18/18 13:00 12/21/18 13:46 100 MLS/HR Morphine Sulfate (Morphine Sulfate) 2 mg PRN Q6HRS PRN 12/19/18 04:30 12/19/18 18:24 2 MG Ondansetron HCl (Zofran) 4 mg PRN Q8HRS PRN 12/17/18 17:15 12/18/18 17:14 DC Sodium Polystyrene Sulfonate (Kayexalate) 15 gm 1X ONCE 12/17/18 16:45 12/17/18 16:46 DC 12/17/18 16:45 15 GM Sodium Chloride 1,000 ml @ 75 mls/hr [id number] 12/18/18 10:15 12/21/18 18:01 75 MLS/HR Tamsulosin HCl (Flomax) 0.4 mg DAILY 12/18/18 09:00 12/22/18 08:08 0.4 MG Vancomycin HCl (Vanco Per Pharmacy) 1 each PRN DAILY PRN 12/17/18 15:45 12/18/18 11:47 DC 12/17/18 19:07 1 EACH Vancomycin HCl (Vancomycin Trough Level) 1 each 1X ONCE 12/19/18 15:30 12/19/18 15:30 DC Vancomycin HCl 1.5 gm/Sodium Chloride 500 ml @ 250 mls/hr 1X ONCE 12/17/18 16:00 12/17/18 17:59 DC 12/17/18 16:07 250 MLS/HR Vancomycin HCl 1 gm/Sodium Chloride 250 ml @ 250 mls/hr Q24H 12/18/18 16:00 12/18/18 16:00 DC Zolpidem Tartrate (Ambien) 5 mg PRN QHS PRN 12/20/18 00:15 12/20/18 00:13 5 MG Labs: Lab Laboratory Tests Test 12/21/18 11:34 12/21/18 16:55 12/21/18 20:28 12/22/18 07:39 Glucose (Fingerstick) 257 mg/dL (70-99) 268 mg/dL (70-99) 325 mg/dL (70-99) 255 mg/dL (70-99) Micro RUN DATE: 12/21/18 PAGE 1 RUN TIME: 208 [facility] [address] [place] [address] Chip Chanel M.D., [employer] PATIENT: DAMON ANGUIANO ACCT: [id number] LOC: [address] [place] [address] U : [id number] AGE/SX: 68/M ROOM: [facility] REG : 12/17/[address]: DEE STOKES MD : [id number] BED: 1 DIS : STATUS: ADM IN TLOC: SPEC #: [id number] DAYO: 12/19/18 STATUS: RES REQ #: [id number] RECD: 12/19/[address]: DEE STOKES MD SOURCE: LEG ENTR: 12/19/18 [facility] DR: VERNELL TAO MD [facility]: ISAK ARAIZA MD ORDERED: ANAER/AEROLIVIA/DAVE Procedure Result ANAEROBIC-AEROBIC CULTURE PENDING ANAEROBIC RES 1 PENDING AEROBIC CULT PENDING AEROBIC RES 1 PENDING GRAM STAIN Final Final report GRAM STAIN RES 1 Final Comment No white blood cells seen. GRAM STAIN RES 2 Final No organisms seen Performed at: - [facility] [place] [address] [facility] [address], [place], [place] [id number] Supervisor Final: DICK Mullins MD, Phone: [phone] END OF REPORT Objective: Assessment: 1. Sepsis, source right lower extremity cellulitis.Resolving 2. Right lower extremity cellulitis with underlying chronic venous stasis. 3. Diabetes mellitus. 4. Left hemipelvectomy from before. 5. Chronic kidney disease. 6. Thrombocytopenia. 7. Diabetes mellitus. 8. Tinea. 9. Early dementia. 10. Normocytic anemia. 11. Hyponatremia. 12. PAD Vascular input noted Plan: Plan of Care cont cefazolin/micafungin ok to dc from id standpoint on keflex Elevate right lower extremity. Continue local care. Vascular input noted d/w MYCHAL DAILEY MD Dec 22, 2018 10:23
[2018-12-22 11:00] VITALS: BP 164/50
--- NOTE | 2018-12-22 13:07 | PDOC3 ---
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 HYPERNATREMIA, volume depleted D/C Zyvox/ CONT cefazolin/micafungin admit VASCULAR SURGERY no plans for vascular surgery operation ID CONSULT ESR home on keflex, wound care , HH 35 MIN PT EXAM d/c planning TIME , CHART REVIEW Vitals Vitals Vital Signs Date Time Temp Pulse Resp B/P (MAP) Pulse Ox O2 Delivery O2 Flow Rate FiO2 12/22/18 08:09 63 172/54 12/22/18 08:00 Room Air 12/22/18 07:00 98.5 18 99 98.5 Physical Exam Physical Exam GENERAL: Well-developed, well-nourished male lying in bed comfortably, in no acute distress, comfortable. HEENT: Normocephalic, atraumatic, anicteric. No thrush. Oral mucosa moist. NECK: Supple. No JVD. LUNGS: Clear bilaterally. No wheezing. HEART: S1, S2 with no gallops or murmurs. ABDOMEN: Soft, obese. Bowel sounds present. Nontender, nondistended. EXTREMITIES: Left AKA, hemipelvectomy, right lower extremity, diabetic lipidic changes present, chronic venous stasis changes present. There are few blisters present with weeping lesion of the right anterior lower extremity, slight warmth. No purulent drainage. NEUROLOGIC: Alert and oriented x 3. Grossly nonfocal. PSYCHIATRIC: Cooperative, appropriate mood and affect. General: Alert, Oriented X3, Cooperative Heart: Regular rate (SR), Normal S1, Normal S2, Other (3/6 systolic murmur to LLS border) Lungs: Clear Abdomen: Normal bowel sounds, Soft, No tenderness Extremities: No cyanosis, Other Skin: No breakdown, Other (RLE dermatitis LESS ERYTHEMA) FINAL DIAGNOSIS Problems Medical Problems: (1) Cellulitis Status: Acute (2) Diabetes Status: Acute (3) Hyperkalemia Status: Acute Brief Hospital Course Mr. Geronimo is a 68 old [sex] who presented with [RIGHT LEG CELLULITIS ] CONDITION AT DISCHARGE: Improved Discharge Medications Current Medications Morphine Sulfate (Morphine Sulfate) 5 mg 1X ONCE IV Last administered on at 16:02; Start 12/17/18 at 15:45; Stop 12/17/18 at 15:46; Status DC Vancomycin HCl (Vanco Per Pharmacy) 1 each PRN DAILY PRN MC SEE COMMENTS Last administered on 12/17/18at 19:07; Start 12/17/18 at 15:45; Stop 12/18/18 at 11:47 ; Status DC Vancomycin HCl 1.5 gm/Sodium Chloride 500 ml @ 250 mls/hr 1X ONCE IV Last administered on 12/17/18at 16:07; Start 12/17/18 at 16:00; Stop 12/17/18 at 17:59 ; Status DC Sodium Polystyrene Sulfonate (Kayexalate) 15 gm 1X ONCE PO Last administered on 12/17/18at 16:45; Start 12/17/18 at 16:45; Stop 12/17/18 at 16:46; Status DC Sodium Chloride 1,000 ml @ 1,000 mls/hr 1X ONCE IV Last administered on at 16:50; Start 12/17/18 at 16:45; Stop 12/17/18 at 17:44; Status DC Ondansetron HCl (Zofran) 4 mg PRN Q8HRS PRN IV NAUSEA/VOMITING; Start 12/17/18 at 17:15; Stop 12/18/18 at 17:14; Status DC Fentanyl Citrate (Fentanyl 2ml Vial) 50 mcg PRN Q1HR PRN IV PAIN; Start at 17:15; Stop 12/18/18 at 17:14; Status DC Sodium Chloride 1,000 ml @ 100 mls/hr Q10H IV Last administered on 12/18/18at 08:19; Start 12/17/18 at 17:05; Stop 12/18/18 at 16:07; Status DC Acetaminophen (Tylenol) 650 mg PRN Q4HRS PRN PO FEVER; Start 12/17/18 at 17:15 ; Stop 12/18/18 at 17:14; Status DC Insulin Human Lispro (HumaLOG) 0-5 UNITS TIDWMEALS SQ ; Start 12/18/18 at 08:00 ; Stop 12/18/18 at 10:14; Status DC Dextrose (Dextrose 50%-Water Syringe) 12.5 gm PRN Q15MIN PRN IV SEE COMMENTS; Start 12/17/18 at 17:15; Stop 12/18/18 at 10:14; Status DC Insulin Human Regular (HumuLIN R VIAL) 10 unit 1X ONCE IV Last administered on 12/17/18at 17:15; Start 12/17/18 at 17:15; Stop 12/17/18 at 17:16; Status DC Sodium Chloride 1,000 ml @ 1,000 mls/hr 1X ONCE IV ; Start 12/17/18 at 17:15; Stop 12/17/18 at 18:14; Status DC Amlodipine Besylate (Norvasc) 5 mg BID PO Last administered on 12/22/18at 08:09 ; Start 12/17/18 at 21:00 Aspirin (Children'S Aspirin) 81 mg BID PO Last administered on 12/22/18 08:07 ; Start 12/17/18 at 21:00 Atorvastatin Calcium (Lipitor) 40 mg HS PO Last administered on 12/21/18 20:23 ; Start 12/17/18 at 21:00 Carvedilol (Coreg) 12.5 mg DAILY PO Last administered on 12/22/18 08:08; Start 12/18/18 at 09:00 Citalopram Hydrobromide (CeleXA) 20 mg DAILY PO Last administered on 12/22/18 08:06; Start 12/18/18 at 09:00 Acetaminophen/ Hydrocodone Bitart (Lortab 5/325) 1 tab PRN Q6HRS PRN PO MODERATE PAIN Last administered on 12/20/18at 11:40; Start 12/17/18 at 17:45 Insulin Glargine (Lantus) 20 units HS SQ Last administered on 12/21/18at 20:35; Start 12/17/18 at 21:00 Tamsulosin HCl (Flomax) 0.4 mg DAILY PO Last administered on 12/22/18 08:08; Start 12/18/18 at 09:00 Donepezil HCl (Aricept) 5 mg BID PO Last administered on 12/22/18at 08:06; Start 12/17/18 at 21:00 Fenofibrate (Lofibra) 134 mg DAILY PO Last administered on 12/22/18at 08:06; Start 12/18/18 at 09:00 Insulin Human Lispro (HumaLOG) 0-7 UNITS TIDWMEALS SQ Last administered on 12/22at 11:58; Start 12/18/18 at 08:00 Dextrose (Dextrose 50%-Water Syringe) 12.5 gm PRN Q15MIN PRN IV SEE COMMENTS; Start 12/17/18 at 17:45 Insulin Human Lispro (HumaLOG) 10 units TIDWMEALS SQ Last administered on at 11:59; Start 12/18/18 at 08:00 Enoxaparin Sodium (Lovenox Per Pharmacy Prophylaxis Dosing) 1 each PRN DAILY PRN MC SEE COMMENTS; Start 12/17/18 at 17:45 Enoxaparin Sodium (Lovenox 40mg Syringe) 40 mg Q24H SQ Last administered on at 20:46; Start 12/17/18 at 19:00; Stop 12/21/18 at 19:21; Status DC Vancomycin HCl 1 gm/Sodium Chloride 250 ml @ 250 mls/hr Q24H IV ; Start at 16:00; Stop 12/18/18 at 16:00; Status DC Vancomycin HCl (Vancomycin Trough Level) 1 each 1X ONCE MC ; Start 12/19/18 at 15:30; Stop 12/19/18 at 15:30; Status DC Sodium Chloride 1,000 ml @ 75 mls/hr [id number] IV Last administered on at 18:01; Start 12/18/18 at 10:15 Lactobacillus Rhamnosus (Culturelle) 1 cap BID PO Last administered on at 08:06; Start 12/18/18 at 21:00 Cefazolin Sodium 1 gm/Dextrose 50 ml @ 100 mls/hr Q8HRS IV Last administered on 12/22/18at 06:11; Start 12/18/18 at 14:00 Linezolid (Zyvox) 600 mg BID PO Last administered on 12/20/18at 08:38; Start at 12:30; Stop 12/20/18 at 10:55; Status DC Micafungin Sodium 100 mg/Dextrose 100 ml @ 100 mls/hr Q24H IV Last administered on 12/21/18at 13:46; Start 12/18/18 at 13:00 Morphine Sulfate (Morphine Sulfate) 2 mg PRN Q6HRS PRN IV SEVERE PAIN Last administered on 12/19/18 18:24; Start 12/19/18 at 04:30 Hydralazine HCl (Apresoline Inj) 10 mg PRN Q6HRS PRN IVP ELEVATED BP, SEE COMMENTS Last administered on 12/20/18at 00:15; Start 12/19/18 at 04:30 Zolpidem Tartrate (Ambien) 5 mg PRN QHS PRN PO INSOMNIA Last administered on 00:13; Start 12/20/18 at 00:15 Lisinopril (Prinivil) 10 mg DAILY PO Last administered on 12/22/18 08:07; Start 12/21/18 at 09:00 Lisinopril (Prinivil) 10 mg 1X ONCE PO Last administered on 12/20/18at 13:27; Start 12/20/18 at 13:00; Stop 12/20/18 at 13:01; Status DC Enoxaparin Sodium (Lovenox 40mg Syringe) 40 mg Q24H SQ Last administered on at 20:24; Start 12/21/18 at 21:00 Active Scripts Active Reported Hydrocodone-Apap 5-325 (Hydrocodone Bit/Acetaminophen) 1 Each Tablet 1 Tab PO PRN Q6HRS PRN Amlodipine Besylate 5 Mg Tablet 5 Mg PO BID Propranolol Hcl 80 Mg Cap.sa.24h 80 Mg PO DAILY Aricept (Donepezil Hcl) 5 Mg Tablet 5 Mg PO BID Aspirin 81 Mg Tab.chew 81 Mg PO BID Lipitor (Atorvastatin Calcium) 40 Mg Tablet 40 Mg PO HS Coreg (Carvedilol) 12.5 Mg Tablet 12.5 Mg PO DAILY Novolog Flexpen (Insulin Aspart) 100 Unit/1 Ml Insuln.pen 100 Unit SQ Lantus Solostar (Insulin Glargine,Hum.rec.anlog) 100 Unit/1 Ml Insuln.pen 20 Unit SQ HS Flomax (Tamsulosin Hcl) 0.4 Mg Cap.er.24h 0.4 Mg PO DAILY Celexa (Citalopram Hydrobromide) 20 Mg Tablet 20 Mg PO DAILY Fenofibrate 160 Mg Tablet 160 Mg PO DAILY Vital Signs Vital Signs Date Time Temp Pulse Resp B/P (MAP) Pulse Ox O2 Delivery O2 Flow Rate FiO2 12/22/18 11:00 97.9 62 20 164/50 (88) 97 Room Air 97.9 Labs Laboratory Tests Test 12/20/18 16:28 12/20/18 20:39 12/21/18 06:11 12/21/18 07:55 Glucose (Fingerstick) 293 mg/dL (70-99) 259 mg/dL (70-99) 276 mg/dL (70-99) White Blood Count 4.6 x10^3/uL (4.0-11.0) Red Blood Count 3.41 x10^6/uL (4.30-5.70) Hemoglobin 9.5 g/dL (13.0-17.5) Hematocrit 29.6 % (39.0-53.0) Mean Corpuscular Volume 87 fL (79-100) Mean Corpuscular Hemoglobin 28 pg (25-35) Mean Corpuscular Hemoglobin Concent 32 g/dL (31-37) Red Cell Distribution Width 16.1 % (11.5-14.5) Platelet Count 105 x10^3/uL (140-400) Neutrophils (%) (Auto) 61 % (31-73) Lymphocytes (%) (Auto) 19 % (24-48) Monocytes (%) (Auto) 9 % (0-9) Eosinophils (%) (Auto) 11 % (0-3) Basophils (%) (Auto) 0 % (0-3) Neutrophils # (Auto) 2.8 x10^3uL (1.8-7.7) Lymphocytes # (Auto) 0.9 x10^3/uL (1.0-4.8) Monocytes # (Auto) 0.4 x10^3/uL (0.0-1.1) Eosinophils # (Auto) 0.5 x10^3/uL (0.0-0.7) Basophils # (Auto) 0.0 x10^3/uL (0.0-0.2) Sodium Level 145 mmol/L (136-145) Potassium Level 4.8 mmol/L (3.5-5.1) Chloride Level 110 mmol/L (98-107) Carbon Dioxide Level 27 mmol/L (21-32) Anion Gap 8 (6-14) Blood Urea Nitrogen 20 mg/dL (8-26) Creatinine 1.3 mg/dL (0.7-1.3) Estimated GFR (Cockcroft-Gault) 54.6 BUN/Creatinine Ratio 15 (6-20) Glucose Level 258 mg/dL (70-99) Calcium Level 8.2 mg/dL (8.5-10.1) Total Bilirubin 0.1 mg/dL (0.2-1.0) Aspartate Amino Transf (AST/SGOT) 52 U/L (15-37) Alanine Aminotransferase (ALT/SGPT) 134 U/L (16-63) Alkaline Phosphatase 118 U/L (46-116) Total Protein 5.8 g/dL (6.4-8.2) Albumin 2.4 g/dL (3.4-5.0) Albumin/Globulin Ratio 0.7 (1.0-1.7) Test 12/21/18 11:34 12/21/18 16:55 12/21/18 20:28 12/22/18 07:39 Glucose (Fingerstick) 257 mg/dL (70-99) 268 mg/dL (70-99) 325 mg/dL (70-99) 255 mg/dL (70-99) Test 12/22/18 11:39 Glucose (Fingerstick) 273 mg/dL (70-99) Laboratory Tests Test 12/21/18 16:55 12/21/18 20:28 12/22/18 07:39 12/22/18 11:39 Glucose (Fingerstick) 268 mg/dL (70-99) 325 mg/dL (70-99) 255 mg/dL (70-99) 273 mg/dL (70-99) Allergies Allergies Coded Allergies Type Severity Reaction Last Updated Verified atropine Allergy Intermediate 01/09/15 Yes hyoscyamine Allergy Intermediate 01/09/15 Yes lidocaine Allergy Intermediate 12/21/18 Yes phenobarbital Allergy Intermediate 12/21/18 Yes scopolamine Allergy Intermediate Unknown 12/21/18 Yes Disposition/Orders: D/C to Home w/ HH Patient Instructions D/C PLANNING 35 MIN ART ROBERTS MD Dec 22, 2018 13:07
[2018-12-22] MEDS ORDERED: INSU100I11 SQ (13:11)
[2018-12-22] MEDS ORDERED: LACT1CAP19 PO (13:11)
[2018-12-22] MEDS ORDERED: CEPH-264 PO (13:11)
[2018-12-22] MEDS ORDERED: LISI10TA2 PO (13:12)
--- NOTE | 2018-12-22 13:14 | SNU/HH DC ---
DISCHARGE WITH HOME HEALTH DISCHARGE INFORMATION: Final Diagnosis: Problems Medical Problems: (1) Cellulitis Status: Acute (2) Diabetes Status: Acute (3) Hyperkalemia Status: Acute Condition on Discharge: Stable CODE STATUS: Code Status: Full HOME HEALTH: Face to Face: I certify this patient is under my care and that I, or a nurse practitioner or physician's certified surgical tech/first assistant working with me, had a face to face encounter that meets the physician face to face encounter requirements with this patient on []. Medical Complications: Dementia, HTN RN For Eval/Treatment: Yes Physical Therapy For: Evalulation/Treatment Occupational Therapy For: Evaluation/Treatment Speech Language Pathology For: Evaluation/Treatment Home Health Aide For: Self-care CARROT TIER For: Community Resources Pt Meets Homebound Status: Unsteady balance w/ amb, POST DISCHARGE ORDERS: Activity Instructions for Disc: No restrictions Weight Bearing Status after Di: No restrictions DIET AFTER DISCHARGE: Cardiac CHECKS AFTER DISCHARGE: Checks after discharge: Check blood press - daily CERTIFICATION STATEMENT: Certification Statement: Certification Statement: Based on the above finding, I certify that this patient is confined to the home and needs intermittent nursing home care, physical therapy and/or speech therapy, or continues to need occupational therapy.~ This patient is under my care, and I have initiated the establishment of the plan of care.~ This patient will be followed by myself or a community physician who will periodically review the plan of care. Home Meds Active Scripts Lisinopril (LISINOPRIL) 10 Mg Tablet, 10 MG PO [id number] for BLOOD PRESSURE for 30 Days, #60 TAB Prov:ART ROBERTS MD 12/22/18 Cephalexin (KEFLEX) 500 Mg Capsule, 1 CAP PO TID for INFECTION for 7 Days, #21 CAP Prov:ART ROBERTS MD 12/22/18 Insulin Lispro (HUMALOG) 100 Unit/1 Ml Insuln.pen, 10 UNITS SQ TIDWMEALS for GLUCOSE for 14 Days, #1 EACH Prov:ART ROBERTS MD 12/22/18 Lactobacillus Rhamnosus Gg (CULTURELLE) 1 Each Cap.sprink, 1 CAP PO BID for SUPPLEMENT for 14 Days, #28 CAP Prov:ART ROBERTS MD 12/22/18 Reported Medications Amlodipine Besylate (AMLODIPINE BESYLATE) 5 Mg Tablet, 5 MG PO BID, TAB 03/29/14 Propranolol Hcl (PROPRANOLOL HCL) 80 Mg Cap.sa.24h, 80 MG PO DAILY, CAP.SR 03/29/14 Donepezil Hcl (ARICEPT) 5 Mg Tablet, 5 MG PO BID, TAB 03/29/14 Aspirin (ASPIRIN) 81 Mg Tab.chew, 81 MG PO BID, TAB.CHEW 03/29/14 Atorvastatin Calcium (LIPITOR) 40 Mg Tablet, 40 MG PO HS for FOR CHOLESTEROL, # 30 TAB 0 Refills 03/29/14 Carvedilol (COREG ) 12.5 Mg Tablet, 12.5 MG PO DAILY, TAB 03/29/14 Insulin Glargine,Hum.rec.anlog (LANTUS SOLOSTAR) 100 Unit/1 Ml Insuln.pen, 20 UNIT SQ HS, SYR 03/29/14 Tamsulosin Hcl (FLOMAX) 0.4 Mg Cap.er.24h, 0.4 MG PO DAILY, TAB 03/29/14 Citalopram Hydrobromide (CELEXA) 20 Mg Tablet, 20 MG PO DAILY, TAB 03/29/14 Fenofibrate (FENOFIBRATE) 160 Mg Tablet, 160 MG PO DAILY, TAB 03/29/14 Discontinued Reported Medications Hydrocodone Bit/Acetaminophen (HYDROCODONE-APAP 5-325 ) 1 Each Tablet, 1 TAB PO PRN Q6HRS PRN for PAIN, TAB 0 Refills 03/29/14 Insulin Aspart (NOVOLOG FLEXPEN) 100 Unit/1 Ml Insuln.pen, 100 UNIT SQ, SYR 03/29/14 ART ROBERTS MD Dec 22, 2018 13:14
[2018-12-22] MEDS: MICAFUNGIN 100 MG in IV DEXTROSE 5% 100ML 100 ML IV SCH (13:49)
--- NOTE | 2018-12-22 14:41 | SNU/HH DC ---
DISCHARGE ORDERS DISCHARGE INFORMATION: FINAL DIAGNOSIS Problems Medical Problems: (1) Cellulitis Status: Acute (2) Diabetes Status: Acute (3) Hyperkalemia Status: Acute CONDITION ON DISCHARGE: Stable CODE STATUS: Code Status: Full RETIREMENT: SNF STAY <30 DAYS: Yes HOSPICE: HOSPICE: No HOSPICE EVAL & TREAT: No LTAC: ADMIT TO LTAC: No POST DISCHARGE ORDERS: ACTIVITY ORDERS: No restrictions, Activity as tolerated WEIGHT BEARING STATUS: No restrictions DIET AFTER DISCHARGE: ADA CHECKS AFTER DISCHARGE: CHECKS AFTER DISCHARGE: Check blood press - daily TREATMENT/EQUIPMENT ORDERS: Physical Therapy For: Evalulation/Treatment Occupational Therapy For: Evaluation/Treatment Speech Language Pathology For: Evaluation/Treatment DISCHARGE MEDICATIONS: Home Meds Active Scripts Lisinopril (LISINOPRIL) 10 Mg Tablet, 10 MG PO [id number] for BLOOD PRESSURE for 30 Days, #60 TAB Prov:ART ROBERTS MD 12/22/18 Cephalexin (KEFLEX) 500 Mg Capsule, 1 CAP PO TID for INFECTION for 7 Days, #21 CAP Prov:ART ROBERTS MD 12/22/18 Insulin Lispro (HUMALOG) 100 Unit/1 Ml Insuln.pen, 10 UNITS SQ TIDWMEALS for GLUCOSE for 14 Days, #1 EACH Prov:ART ROBERTS MD 12/22/18 Lactobacillus Rhamnosus Gg (CULTURELLE) 1 Each Cap.sprink, 1 CAP PO BID for SUPPLEMENT for 14 Days, #28 CAP Prov:ART ROBERTS MD 12/22/18 Reported Medications Amlodipine Besylate (AMLODIPINE BESYLATE) 5 Mg Tablet, 5 MG PO BID, TAB 03/29/14 Propranolol Hcl (PROPRANOLOL HCL) 80 Mg Cap.sa.24h, 80 MG PO DAILY, CAP.SR 03/29/14 Donepezil Hcl (ARICEPT) 5 Mg Tablet, 5 MG PO BID, TAB 03/29/14 Aspirin (ASPIRIN) 81 Mg Tab.chew, 81 MG PO BID, TAB.CHEW 03/29/14 Atorvastatin Calcium (LIPITOR) 40 Mg Tablet, 40 MG PO HS for FOR CHOLESTEROL, # 30 TAB 0 Refills 03/29/14 Carvedilol (COREG ) 12.5 Mg Tablet, 12.5 MG PO DAILY, TAB 03/29/14 Insulin Glargine,Hum.rec.anlog (LANTUS SOLOSTAR) 100 Unit/1 Ml Insuln.pen, 20 UNIT SQ HS, SYR 03/29/14 Tamsulosin Hcl (FLOMAX) 0.4 Mg Cap.er.24h, 0.4 MG PO DAILY, TAB 03/29/14 Citalopram Hydrobromide (CELEXA) 20 Mg Tablet, 20 MG PO DAILY, TAB 03/29/14 Fenofibrate (FENOFIBRATE) 160 Mg Tablet, 160 MG PO DAILY, TAB 03/29/14 Discontinued Reported Medications Hydrocodone Bit/Acetaminophen (HYDROCODONE-APAP 5-325 ) 1 Each Tablet, 1 TAB PO PRN Q6HRS PRN for PAIN, TAB 0 Refills 03/29/14 Insulin Aspart (NOVOLOG FLEXPEN) 100 Unit/1 Ml Insuln.pen, 100 UNIT SQ, SYR 03/29/14 ART ROBERTS MD Dec 22, 2018 14:41
--- NOTE | 2018-12-22 15:00 | NUR ---
SW following pt. Orders faxed to [facility] and rehab. Facility already here to take pt via w/c. Packet on chart. Left a voice mail to pt's regarding dc plan. MEME GANN.
--- NOTE | 2018-12-22 15:05 | NUR ---
Pt discharged back to [facility]. Report called to nurse Chiang. Script for Lisinopril and Keflex sent with packet. Nurse verbalized understanding of orders.
== END 2018-12-22 15:02 | DRG 871 ==
LOC: ER 15:26 → 6 SOUTH 16:38
PROVIDERS: ADMIT Internal Medicine; ATTEND Internal Medicine
DX: A41.9 Sepsis, unspecified organism (principal); N17.0 Acute kidney failure with tubular necrosis; L03.115 Cellulitis of right lower limb; I13.0 Hypertensive heart and chronic kidney disease with heart failure and stage 1 through stage 4 chronic kidney disease, or unspecified chronic kidney disease; E87.0 Hyperosmolality and hypernatremia; I47.2 Ventricular tachycardia; E87.1 Hypo-osmolality and hyponatremia; I50.9 Heart failure, unspecified; N18.3 Chronic kidney disease, stage 3 (moderate); E87.5 Hyperkalemia; I25.10 Atherosclerotic heart disease of native coronary artery without angina pectoris; K21.9 Gastro-esophageal reflux disease without esophagitis; J44.9 Chronic obstructive pulmonary disease, unspecified; G20 Parkinson's disease; G30.9 Alzheimer's disease, unspecified; F02.80 Dementia in other diseases classified elsewhere, unspecified severity, without behavioral disturbance, psychotic disturbance, mood disturbance, and anxiety; E11.22 Type 2 diabetes mellitus with diabetic chronic kidney disease; D63.1 Anemia in chronic kidney disease; I87.8 Other specified disorders of veins; D69.6 Thrombocytopenia, unspecified; B35.9 Dermatophytosis, unspecified; E11.51 Type 2 diabetes mellitus with diabetic peripheral angiopathy without gangrene; E11.319 Type 2 diabetes mellitus with unspecified diabetic retinopathy without macular edema; E78.5 Hyperlipidemia, unspecified; M16.11 Unilateral primary osteoarthritis, right hip; E11.620 Type 2 diabetes mellitus with diabetic dermatitis; I77.6 Arteritis, unspecified; E86.9 Volume depletion, unspecified; H35.30 Unspecified macular degeneration; Z90.49 Acquired absence of other specified parts of digestive tract; Z95.1 Presence of aortocoronary bypass graft; Z89.612 Acquired absence of left leg above knee; Z88.4 Allergy status to anesthetic agent; Z88.8 Allergy status to other drugs, medicaments and biological substances; Z83.3 Family history of diabetes mellitus; Z99.3 Dependence on wheelchair; Z87.891 Personal history of nicotine dependence
CPT/HCPCS: 36415; 73590; 80048; 80053; 80061; 82962; 83036; 83605; 83735; 83880; 84484; 85025; 85651; 87040; 87071; 87075; 87186; 93005; 93306; 93926; 96365; 96366; 96375; J0360; J0690; J1650; J1815; J2248; J2270; J3370; J7030; J7040; 97110; 97116; 97530; 97535; 99285-25